=== PATIENT | male | born 1960 | race Caucasian/White ===

== ENCOUNTER 2016-09-12 13:23 | Inpatient (IN) | payer MEDICAID, OTHER ==
--- NOTE | 2016-09-12 13:56 | EDPHY ---
H & P Stated Complaint: lethargic, AMS this am Time Seen by Provider: 09/12/16 13:32 HPI/ROS: CHIEF COMPLAINT: Low-grade fever, lethargy HISTORY OF PRESENT ILLNESS: The patient is referred to the emergency department from the senior living. He has been incarcerated for some time. The patient reportedly developed a low-grade fever and some mild confusion earlier today. Patient the history of COPD as well as alcohol dependence. The patient is on Trilafon and Cogentin. In the emergency department, the patient denies acute complaints. The patient has reportedly been having problems with his cell mate. He denies acute abdominal pain, cough, vomiting or diarrhea. The patient denies any medication changes. He denies headache or acute back pain. He is only complaining of the fact that he is having wrist discomfort secondary to his current handcuffs. REVIEW OF SYSTEMS: A comprehensive 10 point review of systems is otherwise negative aside from elements mentioned in the history of present illness. 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, L ankle MRSA 2009, frostbite on right toes, COPD - Social History Smoking Status: Heavy smoker - Physical Exam Exam: General Appearance: Alert, no distress Eyes: Pupils equal and round no pallor or injection ENT, Mouth: Mucous membranes moist Respiratory: There are no retractions, lungs are clear to auscultation Cardiovascular: Regular rate and rhythm Gastrointestinal: Abdomen is soft and nontender, no masses, bowel sounds normal Neurological: A&O, normal motor function, normal sensory exam, normal cranial nerves Skin: Warm and dry, no rashes Musculoskeletal: Neck is supple nontender Extremities: symmetrical, full range of motion Constitutional: Initial Vital Signs Temperature (C) 37.2 C 09/12/16 13:33 Heart Rate 89 09/12/16 13:33 Respiratory Rate 20 09/12/16 13:33 Blood Pressure 143/106 H 09/12/16 13:33 O2 Sat (%) 97 09/12/16 13:33 O2 Delivery Mode Room Air Allergies/Adverse Reactions: codeine [Codeine] Allergy (Verified 12/15/15 08:00) Penicillins Allergy (Verified 03/14/15 08:00) Home Medications: Medication Instructions Recorded Albuterol 03/25/15 Omeprazole 03/25/15 Azithromycin [Zithromax] 250 mg PO DAILY #6 tab 04/24/15 Permethrin 60 gm TP ONCE #1 cream..g. 04/24/15 Medical Decision Making - Diagnostics Imaging Results: Imaging Impressions Chest X-Ray 09/12/16 13:52 Impression: Negative portable chest. Incomplete inspiration. ED Course/Re-evaluation: The patient presents to the ED for evaluation of confusion and lethargy. The patient is noted to have a critically low sodium of 114. In talking with the patient it sounds as if this may be secondary to water intoxication. The patient has been fairly stable on his chronic medications. The patient will require admission to the hospital. He had an IV established. He received 1 L of normal saline. The patient's urine has been sent for osmolality and sodium measures. Consultation is made with the hospitalist service for admission. I spoke with Dr. Oates at 2:30 p.m.. She will admit the patient. I re-evaluated the patient at 2:45 p.m.. He continues to be neurologically intact. I do not see an indication for hypertonic saline. The patient will be admitted to the step-down unit. I will defer to the hospitalist service for consulting renal if necessary. The patient has no significant fever noted in the emergency department. He reportedly was mildly hypoxemic but has no evidence of a acute infiltrate on his chest x-ray. Differential Diagnosis: Differential diagnosis considered includes metabolic abnormality, hyponatremia, dehydration, renal failure Critical Care Time: Critical care time exclusive of procedures and exclusive of the PA's time was 35 minutes, performed by myself, Hansel Murphy MD. The patient presents to the ED with critical hyponatremia. The patient will require admission to the Intensive Care Step-Down Unit. - Data Points Laboratory Results: Laboratory Results 09/12/16 13:40 09/12/16 09/12/16 09/12/16 14:25 13:40 13:40 WBC Pending RBC Pending Hgb Pending Hct Pending MCV Pending MCH Pending MCHC Pending RDW Pending Plt Count Pending MPV Pending Neut % (Auto) Pending Lymph % (Auto) Pending [place] % (Auto) Pending Eos % (Auto) Pending Baso % (Auto) Pending Nucleat RBC Rel Count Pending Absolute Neuts (auto) Pending Absolute Lymphs (auto) Pending Absolute Monos (auto) Pending Absolute Eos (auto) Pending Absolute Basos (auto) Pending Absolute Nucleated RBC Pending Immature Gran % Pending Immature Gran # Pending Sodium 114 mEq/L L* mEq/L (134-144) Potassium 4.1 mEq/L mEq/L (3.5-5.2) Chloride 78 mEq/L L mEq/L (97-110) Carbon Dioxide 23 mEq/l mEq/l (22-31) Anion Gap 13 mEq/L mEq/L (8-16) BUN 9 mg/dL mg/dL (7-23) Creatinine 0.7 mg/dL mg/dL (0.7-1.3) Estimated GFR > 60 Glucose 106 mg/dL H mg/dL (70-100) Calcium 9.4 mg/dL mg/dL (8.5-10.4) Urine Color Pending Urine Appearance Pending Urine pH Pending Ur Specific [place] Pending Urine Protein Pending Urine Ketones Pending Urine Blood Pending Urine Nitrate Pending Urine Bilirubin Pending Urine Urobilinogen Pending Ur Leukocyte Esterase Pending Urine RBC Pending Urine WBC Pending Ur Epithelial Cells Pending Urine Osmolality Pending Ur Random Sodium Pending Urine Glucose Pending Departure - Departure Disposition: [facility] Inpatient Acute Clinical Impression: Altered mental status, Hyponatremia Condition: Fair Referrals: NONE *PRIMARY CARE P,. [Primary Care Provider] - As per Instructions
[2016-09-12 14:20] LABS: ANION GAP 13 mEq/L (8-16); CALCIUM 9.4 mg/dL (8.5-10.4); CARBON DIOXIDE 23 mEq/l (22-31); CHLORIDE 78 mEq/L (97-110); CREATININE 0.7 mg/dL (0.7-1.3); GLOMERULAR FILTRATION RATE > 60; GLUCOSE 106 mg/dL (70-100); POTASSIUM 4.1 mEq/L (3.5-5.2)
[2016-09-12 14:24] LABS: SODIUM 114 mEq/L (134-144)
[2016-09-12] MEDS ORDERED: NS 1,000 ML IV ONE (14:25)
[2016-09-12 14:47] LABS: COLOR PALE YELLOW; LEUKOCYTE ESTERASE,URINE NEGATIVE (NEGATIVE); NITRITE,URINE NEGATIVE (NEGATIVE)
[2016-09-12] MEDS ORDERED: ONDANSETRON 4 MG/2 ML VIAL IVP PRN (15:11)
[2016-09-12] MEDS ORDERED: ONDANSETRON DISINTEGRATING 4 MG TAB PO PRN (15:11)
[2016-09-12] MEDS ORDERED: ALBUTEROL 200 PUFFS/18 GM MDI IH PRN (15:23)
--- NOTE | 2016-09-12 15:39 | PDGENHP ---
History and Physical - Chief Complaint confusion, N/V - History of Present Illness 56 yo male with h/o homelessness, alcohol abuse and presumed schizophrenia presents to the ED from [facility] with reports of increasing confusion and nausea and vomiting. Symptoms have been worsening over the past several days. He takes Trilafon (anti-psychotic) and Cogentin and is followed by Dr. Bernal. He denies seizure activity, though clearly has bite gonzalez on his tongue. He is unable to give an adequate history due to his confusion and only intermittently follows commands and answers questions. Most of the history is obtained by chart reviewed, ED staff, and his accompanying polic officer. Workup in the ED revealed a sodium of 114 and he is admitted to the hospital for further management. History Information - Allergies/Home Medication List Allergies/Adverse Reactions: codeine [Codeine] Allergy (Verified 03/14/15 08:00) Penicillins Allergy (Verified 03/14/15 08:00) Home Medications: Albuterol [Proventil Inhaler HFA (*)] 1 puffs IH QID PRN 09/12/16 [Last Taken Unknown] Beclomethasone Qvar 80 [Qvar 80 (*)] 1 puffs IH BID 09/12/16 [Last Taken Unknown ] Benztropine Mesylate [Cogentin (RX)] 1 mg PO BID 09/12/16 [Last Taken Unknown] Ibuprofen [Motrin (*)] 800 mg PO BID PRN 09/12/16 [Last Taken Unknown] Lisinopril/Hctz 20/12.5MG [Zestoretic/Prinzide 20/12.5MG (*)] 1 ea PO DAILY [Last Taken Unknown] Omeprazole [Prilosec 20 mg] 20 mg PO DAILY 09/12/16 [Last Taken Unknown] Perphenazine [Trilafon 16mg (*)] 16 mg PO HS 09/12/16 [Last Taken 09/11/16] Psyllium Husk (with Sugar) [Metamucil Packet] 1 each PO DAILY 09/12/16 [Last Taken Unknown] Tamsulosin HCl [Flomax 0.4 MG (*)] 0.4 mg PO DAILY 09/12/16 [Last Taken Unknown] I have personally reviewed and updated: family history, medical history, social history, surgical history - Past Medical History asthma, GERD Additional medical history: H/O alcohol abuse, H/O MRSA, H/O Gangrene due to frostbite injury - Surgical History Reports: no pertinent surgical hx - Family History Positive for: non-pertinent - Social History Smoking Status: Heavy smoker Alcohol Use: Other (h/o heavy etoh use, none recently while incarcerated) Drug Use: Marijuana Additional social history: Homeless, currently in [facility] for past several months Review of Systems ROS: 10pt was reviewed & negative except for what was stated in HPI & below Physical Exam Temp Pulse Resp BP Pulse Ox 37 C 83 20 144/89 H 97 09/12/16 14:35 09/12/16 14:35 09/12/16 14:35 09/12/16 14:35 09/12/16 14:35 Constitutional: no apparent distress Eyes: PERRL Ears, Nose, Mouth, Throat: moist mucous membranes, other (teeth gonzalez on left lateral aspect of tongue) Cardiovascular: regular rate and rhythym Respiratory: no respiratory distress, clear to auscultation Gastrointestinal: normoactive bowel sounds, soft, non-tender abdomen Skin: warm Musculoskeletal: full muscle strength Neurologic: other (oriented to person only, doesn't seem to be responding to internal stimuli, but not conversive) Psychiatric: encephalopathic, poor insight Lab Data & Imaging Review 09/12/16 13:40 09/12/16 13:40 Sodium 114 mEq/L (134-144) L* 09/12/16 13:40 Potassium 4.1 mEq/L (3.5-5.2) 09/12/16 13:40 Chloride 78 mEq/L (97-110) L 09/12/16 13:40 Carbon Dioxide 23 mEq/l (22-31) 09/12/16 13:40 Anion Gap 13 mEq/L (8-16) 09/12/16 13:40 BUN 9 mg/dL (7-23) 09/12/16 13:40 Creatinine 0.7 mg/dL (0.7-1.3) 09/12/16 13:40 Estimated GFR > 60 09/12/16 13:40 Glucose 106 mg/dL (70-100) H 09/12/16 13:40 Serum Osmolality 241 mosmo/kg (280-297) L 09/12/16 13:40 Calcium 9.4 mg/dL (8.5-10.4) 09/12/16 13:40 Urine Color PALE YELLOW 09/12/16 14:25 Urine Appearance CLEAR 09/12/16 14:25 Urine pH 8.0 (5.0-7.5) H 09/12/16 14:25 Ur Specific [place] 1.002 (1.002-1.030) 09/12/16 14:25 Urine Protein NEGATIVE (NEGATIVE) 09/12/16 14:25 Urine Ketones NEGATIVE (NEGATIVE) 09/12/16 14:25 Urine Blood 1+ (NEGATIVE) H 09/12/16 14:25 Urine Nitrate NEGATIVE (NEGATIVE) 09/12/16 14:25 Urine Bilirubin NEGATIVE (NEGATIVE) 09/12/16 14:25 Urine Urobilinogen NEGATIVE EU (0.2-1.0) 09/12/16 14:25 Ur Leukocyte Esterase NEGATIVE (NEGATIVE) 09/12/16 14:25 Urine RBC 1-3 /hpf (0-3) 09/12/16 14:25 Urine WBC 1-3 /hpf (0-3) 09/12/16 14:25 Ur Epithelial Cells NONE SEEN /lpf (NONE-1+) 09/12/16 14:25 Urine Osmolality 121 mosmo/kg (300-900) L 09/12/16 14:25 Ur Random Sodium 26 mEq/L (30-90) L 09/12/16 14:25 Urine Glucose NEGATIVE (NEGATIVE) 09/12/16 14:25 Visualized and Interpreted Chest x-ray results: Yes Chest X-Ray results: no infiltrate, normal Assessment & Plan Assessment: Hyponatremia - He presents with Na 114 and low urine Na and urine osm. I suspect he had a seizure given his tongue injury. He is quite confused. 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 However, Trilafon (anti-psychotic) can cause SIADH and polyuria. Urine studies not c/w SIADH. -Admit to SDU -Cancel NS ordered by ED -fluid restrict 1.2 L per day -Hold HCTZ -Renal is consulted, pt may require DDAVP to avoid rapid correction -q2h BMP for now -seizure precautions, neuro-checks Acute encephalopathy - likely secondary to above. Monitor. Schizophrenia - he'll be continued on his anti-psychotic and cogentin. If renal service thinks we need to stop Trilafon, will need psychiatry consult to consider alternatives to ensure he doesn't decompensate from a mental health standpoint. GERD -cont PPI Asthma - no acute exacerbation. Continue prn albuterol. Full code DVT PPLX - Lovenox Dispo - inpt. Will require >48 hrs hospitalization for ongoing management of critical hyponatremia and associated cognition changes
[2016-09-12 16:17] LABS: % IMMATURE GRANULYOCYTES 0.7 % (0.0-1.1); ABSOLUTE IMMATURE GRANULOCYTES 0.08 10^3/uL (0.00-0.10); ADD DIFF? NO; ADD MORPH? YES; ADD SCAN? NO; ATYPICAL LYMPHOCYTE FLAG 0 (0-99); FRAGMENT RBC FLAG 0 (0-99); HEMATOCRIT 34.4 % (40.0-51.0); HEMOGLOBIN 13.5 g/dL (13.7-17.5); LEFT SHIFT FLG 0 (0-99); MEAN CELL HEMOGLOBIN 32.8 pg (27.9-34.1); MEAN CELL HEMOGLOBIN CONCENTR. 39.2 g/dL (32.4-36.7); MEAN CELL VOLUME 83.7 fL (81.5-99.8); MEAN PLATELET VOLUME 9.6 fL (8.7-11.7); PLATELET CLUMPS FLAG 0 (0-99); PLATELET COUNT 175 10^3/uL (150-400); RED BLOOD CELL COUNT 4.11 10^6/uL (4.40-6.38); RED CELL DISTRIBUTION WIDTH 11.8 % (11.5-15.2)
[2016-09-12 16:18] LABS: LIPEMIA HEMOLYSIS FLAG 100 (0-99)
--- NOTE | 2016-09-12 16:24 | ECHO ---
[id number] + + [address] : : [place] [address] : : [phone] + + Adult Echocardiographic Report + -----+ :Name: SUZANNE HAGER Cuauhtemoc Date: 09/12/2016 04:09 PM : : Hospital Admission Number: [id number] Mayra n: ER: :: 1960 Gender: Male : :Age: 56 yrs Race: WH : :Reason For Study: Eval LV Fx : :History: Question CHF : + -----+ MMode/2D Measurements \T\ Calculations IVSd: 0.92 cm LVIDd: 4.8 cm FS: 43.2 % Ao root diam: 2.9 cm LVPWd: 0.94 cm LVIDs: 2.7 cm EDV(Teich): 108.0 ml ACS: 1.9 cm ESV(Teich): 27.8 ml EF(Teich): 74.3 % Normal Measurement Values: + + :LVIDd (3.5-5.7cm) IVSd (0.6-1.1cm) LVPWd (0.6-1.1cm) Aortic Root (2.0-3.7cm)Left Atrium (1.5-4.0cm): :LV Vol(d) (76-115ml) LV Vol(s) (29-48ml) Ejec Fraction (50-65%)PV Ethan (0.6- 1.2m/s) TV Ethan (0.4-1.0m/s) : :MV E Ethan (0.8-1.0m/s)MV A Ethan (0.3-1.0m/s)LVOT Ethan (0.7-1.2m/s) Asc Ao Ethan ( 0.9-1.8m/s) : + + Left Ventricle The left ventricle is normal in size and function. There is normal left ventricular wall thickness. The left ventricular ejection fraction is normal. Right Ventricle The right ventricle is normal in size and function. Atria The left atrial size is normal. Right atrial size is normal. Mitral Valve The mitral valve is normal in structure and function. There is no mitral valve stenosis. There is trace mitral regurgitation. Tricuspid Valve The tricuspid valve is not well visualized. Aortic Valve The aortic valve opens well. There is no aortic stenosis. Pulmonic Valve The pulmonic valve is not well visualized. Pericardium/Pleural There is no pericardial effusion. Patient was restrained and uncooperative during the exam. Conclusion This is a limited echo to evaluate LV Fx. The left ventricle is normal in size and function. The left ventricular ejection fraction is normal. The mitral valve is normal in structure and function. There is trace mitral regurgitation. The aortic valve opens well. There is no pericardial effusion. Patient was restrained and uncooperative during the exam. No prior echo Final Reading Physician: Dr Ariana Lozano electronically signed on 09/12/2016 04:22 PM Ordering Physician: Hansel Estrella Performed By: Tremaine Scott, MICHELLECS
[2016-09-12 17:25] LABS: ACANTHOCYTES 1+; MICROCYTES 1+; PLATELET ESTIMATE ADEQUATE (ADEQ); POLYCHROMASIA 1+
[2016-09-12] MEDS ORDERED: SODIUM Cl 3% 100 ML IV ONE (17:30)
--- NOTE | 2016-09-12 18:34 | GCON ---
[f rep st] CONSULTATION DATE OF CONSULTATION: 09/12/2016 REASON FOR CONSULTATION: Opinion regarding hyponatremia. HISTORY OF PRESENT ILLNESS: The patient is a 56-year-old gentleman with no prior history of kidney disease, he is currently incarcerated in the [facility] senior care. The patient was somnolent today and his c ellmate was unable to arouse him. He was brought to the [facility] Emergency Department and was noted to have a serum sodium of 114. The patient has a history of a psychiatric illness and is on multiple psychiatric medications including Trilafon as well as Cogentin. When I went to see the patient, I could arouse him, but he went back to sleep, he would not answer my questions. A member of the human factors advisor lead's department was present during the entire interview. PAST MEDICAL HISTORY: Significant for schizophrenia and BPH. ALLERGIES: To codeine and penicillin. FAMILY HISTORY: Unobtainable. SOCIAL HISTORY: He is currently living in the [facility] senior care. REVIEW OF SYSTEMS: Not obtainable from the patient. PHYSICAL EXAMINATION: VITAL SIGNS: Blood pressure is 144/89, pulse is 83, respirations 20, tempera ture is 37.0. GENERAL: He is lying on a cart, and he is arousable but drifts off to sleep. HEENT: Pupils are reactive to light. Extraocular movements are intact. Mucous membranes are moist. NEC K: No lymphadenopathy, thyromegaly, or JVD. HEART: Regular. No rub. No S3. LUNGS: No rhonchi or wheezes. ABDOMEN: Bowel sounds are positive, soft, nontender, nondistended. EXTREMITIES: No e alexandre. NEUROLOGIC: No asterixis. He moves all of his extremities. SKIN: Warm. No unusual rashes or lesions. LYMPHATIC: No palpable lymphadenopathy or lymphedema. MUSCULOSKELETAL: No effusions or tenderness. LABORATORY DATA: Serum sodium 114, potassium 4.1, chloride 78, CO2 of 23, BUN 9, creatinine 0.7, gl ucose 106, calcium 9.4. Serum osmolality 241. Urine osmolality 121. Urine sodium 26. Osmolar gap is 5. Urinalysis: Specific gravity of 1.002, pH 8, negative protein, +1 blood. IMPRESSION: 1. Polydipsic hyponatremia. Apparently according to his cellmate, the patient "drinks water all da y long." His urine chemistries would bare that out as well, I would expect his urine osmolality to be a bit less, but with his psychiatric illness and medications, we may see some impairment of his d iluting ability. 2. Mental status changes and somnolence, no seizures but he is difficult to arouse. 3. History of schizophrenia. RECOMMENDATIONS: 1. We will give him 100 cc of 3% sodium chloride over 10 to 15 minutes x1 and repeat a serum sodium after the infusion is completed. 2. We will continue to follow his sodium closely. 3. He will be admitted to the hospital. 4. I suspect that with his good renal function and the absence of water available to him, he should correct on his own. It is not clear of the acuity of his hyponatremia and so we should get his men braydon status better, and then attempt to keep his rate of his sodium to around 8 mEq/L per day. 5. Discuss this with Dr. Sylvia Oates. Thank you for allowing me to participate in the care of your patient. If there is any questions, pl ease do not hesitate to contact me. I will be following along with you. /[id number]/MODL
[2016-09-12 19:17] LABS: ANION GAP 11 mEq/L (8-16); CALCIUM 9.6 mg/dL (8.5-10.4); CARBON DIOXIDE 22 mEq/l (22-31); CHLORIDE 84 mEq/L (97-110); CREATININE 0.8 mg/dL (0.7-1.3); GLOMERULAR FILTRATION RATE > 60; GLUCOSE 95 mg/dL (70-100); URIC ACID 5.9 mg/dL (3.5-8.5)
[2016-09-12 19:21] LABS: SODIUM 117 mEq/L (134-144)
[2016-09-12] MEDS: ACETAMINOPHEN 325 MG TAB PO PRN (21:11)
[2016-09-12] MEDS: PERPHENAZINE 16 MG PO SCH (21:14)
[2016-09-12 22:08] LABS: ANION GAP 10 mEq/L (8-16); CALCIUM 9.6 mg/dL (8.5-10.4); CARBON DIOXIDE 26 mEq/l (22-31); CHLORIDE 83 mEq/L (97-110); CREATININE 0.8 mg/dL (0.7-1.3); GLOMERULAR FILTRATION RATE > 60; GLUCOSE 90 mg/dL (70-100); POTASSIUM 3.7 mEq/L (3.5-5.2)
[2016-09-12 22:23] LABS: SODIUM 119 mEq/L (134-144)
[2016-09-12] MEDS: BECLOMETHASONE QVAR 80 MDI IH SCH (22:54)
[2016-09-12] MEDS ORDERED: 1/2 NS 1,000 ML IV SCH (23:00)
[2016-09-13 00:08] LABS: ANION GAP 11 mEq/L (8-16); CALCIUM 9.4 mg/dL (8.5-10.4); CARBON DIOXIDE 24 mEq/l (22-31); CHLORIDE 83 mEq/L (97-110); CREATININE 0.8 mg/dL (0.7-1.3); GLOMERULAR FILTRATION RATE > 60; GLUCOSE 91 mg/dL (70-100); POTASSIUM 3.8 mEq/L (3.5-5.2)
[2016-09-13 00:11] LABS: SODIUM 118 mEq/L (134-144)
[2016-09-13 01:29] LABS: ANION GAP 10 mEq/L (8-16); CALCIUM 9.3 mg/dL (8.5-10.4); CARBON DIOXIDE 24 mEq/l (22-31); CHLORIDE 87 mEq/L (97-110); CREATININE 0.8 mg/dL (0.7-1.3); GLOMERULAR FILTRATION RATE > 60; GLUCOSE 94 mg/dL (70-100); POTASSIUM 3.5 mEq/L (3.5-5.2); SODIUM 121 mEq/L (134-144)
[2016-09-13] MEDS ORDERED: D5W 1,000 ML IV SCH (02:30)
[2016-09-13 04:54] LABS: ANION GAP 11 mEq/L (8-16); CALCIUM 9.5 mg/dL (8.5-10.4); CARBON DIOXIDE 25 mEq/l (22-31); CHLORIDE 85 mEq/L (97-110); CREATININE 0.8 mg/dL (0.7-1.3); GLOMERULAR FILTRATION RATE > 60; GLUCOSE 106 mg/dL (70-100); POTASSIUM 3.4 mEq/L (3.5-5.2); SODIUM 121 mEq/L (134-144)
[2016-09-13 06:58] LABS: % IMMATURE GRANULYOCYTES 0.5 % (0.0-1.1); ABSOLUTE IMMATURE GRANULOCYTES 0.03 10^3/uL (0.00-0.10); ADD DIFF? NO; ADD MORPH? YES; ADD SCAN? NO; ATYPICAL LYMPHOCYTE FLAG 0 (0-99); FRAGMENT RBC FLAG 0 (0-99); HEMATOCRIT 32.4 % (40.0-51.0); HEMOGLOBIN 12.6 g/dL (13.7-17.5); LEFT SHIFT FLG 0 (0-99); MEAN CELL HEMOGLOBIN 32.6 pg (27.9-34.1); MEAN CELL VOLUME 83.9 fL (81.5-99.8); MEAN PLATELET VOLUME 9.2 fL (8.7-11.7); PLATELET CLUMPS FLAG 20 (0-99); PLATELET COUNT 135 10^3/uL (150-400); RED BLOOD CELL COUNT 3.86 10^6/uL (4.40-6.38); RED CELL DISTRIBUTION WIDTH 11.9 % (11.5-15.2)
[2016-09-13 06:59] LABS: LIPEMIA HEMOLYSIS FLAG 100 (0-99); MEAN CELL HEMOGLOBIN CONCENTR. 38.9 g/dL (32.4-36.7)
[2016-09-13 07:36] LABS: MICROCYTES 1+; PLATELET ESTIMATE DECREASED (ADEQ)
[2016-09-13] MEDS: TAMSULOSIN HCL 0.4 MG CAP PO SCH (08:31)
[2016-09-13] MEDS: PANTOPRAZOLE SODIUM 40 MG TAB PO SCH (08:31)
[2016-09-13] MEDS: ENOXAPARIN 40 MG/0.4 ML SYR SC SCH (08:40)
[2016-09-13 08:55] LABS: ANION GAP 9 mEq/L (8-16); CALCIUM 9.3 mg/dL (8.5-10.4); CARBON DIOXIDE 26 mEq/l (22-31); CHLORIDE 87 mEq/L (97-110); CREATININE 0.8 mg/dL (0.7-1.3); GLOMERULAR FILTRATION RATE > 60; GLUCOSE 106 mg/dL (70-100); POTASSIUM 3.5 mEq/L (3.5-5.2); SODIUM 122 mEq/L (134-144)
--- NOTE | 2016-09-13 09:13 | SOAPPROG ---
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 May need to give some DDAVP if continues to rise. RN to page me next Na check to adjust fluids, etc. -continue q Na checks- goal correction no more than 8 points in 24 hrs 2)Schizophrenia I am quality control expert for weekend Maria G Tabor MD [facility] [phone] 09/13/16 10:35 Subjective: Feels better today, ate breakfast. Denies sob, n/v, diarrhea. Remains on D5W @ 125 cc/hr/ Objective: Vital Signs Temp Pulse Resp BP Pulse Ox 37.0 C 66 12 95/49 L 97 09/13/16 08:00 09/13/16 08:00 09/13/16 08:00 09/13/16 08:00 09/13/16 08:00 Laboratory Results 09/13/16 06:14 09/13/16 08:30 09/12/16 09/13/16 09/14/16 05:59 05:59 05:59 Intake Total 450 Output Total 450 Balance 0 Physical Exam - Physical Exam General Appearance: alert, no apparent distress EENT: other (mmm) Neck: supple Respiratory: lungs clear Cardiac/Chest: regular rate, rhythm Abdomen: normal bowel sounds, non-tender, soft Skin: warm/dry Extremities: other (no edema) Neuro/Psych: alert, oriented x 3, other (flat affect) ICD10 Worksheet Patient Problems: Problems Problem Status Onset Altered mental status Acute Hyponatremia Acute Alcohol intoxication Acute History of acute alcohol intoxication Acute Osteomyelitis of foot, right, acute Acute
[2016-09-13] MEDS: ACETAMINOPHEN 325 MG TAB PO PRN ×2 (09:17→16:50)
[2016-09-13] MEDS: BECLOMETHASONE QVAR 80 MDI IH SCH ×2 (09:31→19:33)
--- NOTE | 2016-09-13 09:31 | HOSPPROG ---
Hospitalist Progress Note Assessment/Plan: #Hyponatremia: due to polydypsia. Hold HCTZ q4hr Na. Do not want >8meq rise in 24 hrs. Goal now higher than 122. -Noon BMP 122. Cont D5W, may need DDVAP. Appreciate renal consultation #Schizophrenia: cont psych meds. #Likely seizure: bite clif on tongue #Acute metabolic encephalopathy: due to hyponatremia vs. seizure. Now resolved. #GERD: PPI #HTN: hold ACEI with soft pressures #Diet: regular with 1200ml fluid restriction #Disp: cont ICU care with serial BMPs, IVFs Subjective: no SOB, dizziness Objective: Vital Signs Temp Pulse Resp BP Pulse Ox 37.0 C 66 12 95/49 L 97 09/13/16 08:00 09/13/16 08:00 09/13/16 08:00 09/13/16 08:00 09/13/16 08:00 Laboratory Results 09/13/16 06:14 09/13/16 08:30 09/12/16 09/13/16 09/14/16 05:59 05:59 05:59 Intake Total 450 Output Total 450 Balance 0 - Physical Exam Constitutional: no apparent distress Eyes: PERRL Ears, Nose, Mouth, Throat: moist mucous membranes, hearing normal Cardiovascular: regular rate and rhythym, no murmur, rub, or gallop Respiratory: no respiratory distress, no rales or rhonchi Gastrointestinal: normoactive bowel sounds, soft, non-tender abdomen Genitourinary: no bladder fullness Skin: warm Musculoskeletal: full muscle strength Neurologic: AAOx3, CN II-XII Intact Psychiatric: interacting appropriately ICD10 Worksheet Patient Problems: Problems Problem Status Onset History of acute alcohol intoxication Acute Osteomyelitis of foot, right, acute Acute Alcohol intoxication Acute Altered mental status Acute Hyponatremia Acute
[2016-09-13 12:26] LABS: ANION GAP 13 mEq/L (8-16); CALCIUM 9.3 mg/dL (8.5-10.4); CARBON DIOXIDE 25 mEq/l (22-31); CHLORIDE 84 mEq/L (97-110); CREATININE 0.9 mg/dL (0.7-1.3); GLOMERULAR FILTRATION RATE > 60; GLUCOSE 106 mg/dL (70-100); POTASSIUM 3.7 mEq/L (3.5-5.2); SODIUM 122 mEq/L (134-144)
--- NOTE | 2016-09-13 13:41 | GCON ---
[f rep st] CONSULTATION CRITICAL CARE CONSULTATION DATE OF CONSULTATION: 09/13/2016 HISTORY OF PRESENT ILLNESS: The patient is a 56-year-old male with a history of alcohol abuse and s chizophrenia who was brought to the emergency department from residential with increased confusion and emes is. He takes antipsychotics for schizophrenia and was becoming more confused and unresponsive in e residential and was found to have a sodium of 114. He was unable to provide much history, and there was some discussion of seizure activity but this was not confirmed. PAST MEDICAL HISTORY: Includes asthma, reflux disease, schizophrenia, alcohol abuse, MRSA bacteremi a in the past, gangrene due to a frostbite injury. PAST SURGICAL HISTORY: None. FAMILY HISTORY: Noncontributory. SOCIAL HISTORY: He is a heavy smoker and a history of alcohol use but none recently because he is i n residential. Does use marijuana regularly. MEDICATIONS: Include albuterol, QVAR, Cogentin, Motrin, Zestoretic, Prilosec, Trilafon. PHYSICAL EXAMINATION: VITAL SIGNS: Afebrile, heart rate of 66, respirations 12, blood pressure 95/ 49, oxygen saturation 97% on room air. GENERAL: He was awake and alert, in no apparent distress, a nd able to speak in full sentences. HEENT: Mucous membranes are moist without erythema or exudate. NECK: Supple without adenopathy. LUNGS: Breath sounds were clear to auscultation bilaterally wi thout wheezes, rubs, or rales. HEART: Regular rate and rhythm. ABDOMEN: Soft, nontender, nondist ended. EXTREMITIES: No clubbing, cyanosis, or edema. NEUROLOGIC: Grossly nonfocal. LABORATORY DATA: Includes a white count of 6.4, hematocrit of 32, platelets of 135. Sodium was ini tially 114 and has risen to 122, potassium 3.7, chloride 84, bicarb 25, BUN 9, creatinine 0.9. ASSESSMENT/PLAN: 1. Hyponatremia. This is thought to be due to polydipsia. He seems to be auto correcting. His ra te is somewhat quicker, but Renal is managing this primarily and I expect no major sequela from this problem. 2. Asthma. This is stable at this time. He should continue his previous medications. /[id number]/MODL
[2016-09-13] MEDS: IBUPROFEN 600 MG TAB PO PRN ×2 (15:06→20:09)
[2016-09-13 16:28] LABS: ANION GAP 10 mEq/L (8-16); CALCIUM 9.2 mg/dL (8.5-10.4); CARBON DIOXIDE 25 mEq/l (22-31); CHLORIDE 84 mEq/L (97-110); CREATININE 0.9 mg/dL (0.7-1.3); GLOMERULAR FILTRATION RATE > 60; GLUCOSE 111 mg/dL (70-100); POTASSIUM 3.7 mEq/L (3.5-5.2)
[2016-09-13 16:38] LABS: SODIUM 119 mEq/L (134-144)
[2016-09-13] MEDS: PERPHENAZINE 16 MG PO SCH (20:09)
[2016-09-13 20:22] LABS: ANION GAP 11 mEq/L (8-16); CARBON DIOXIDE 23 mEq/l (22-31); CHLORIDE 84 mEq/L (97-110); CREATININE 0.8 mg/dL (0.7-1.3); GLOMERULAR FILTRATION RATE > 60; GLUCOSE 106 mg/dL (70-100); SPECIMEN HEMOLYSIS 164
[2016-09-13 20:28] LABS: SODIUM 118 mEq/L (134-144)
[2016-09-13 22:55] LABS: ANION GAP 13 mEq/L (8-16); CALCIUM 9.2 mg/dL (8.5-10.4); CARBON DIOXIDE 23 mEq/l (22-31); CHLORIDE 84 mEq/L (97-110); CREATININE 0.8 mg/dL (0.7-1.3); GLOMERULAR FILTRATION RATE > 60; GLUCOSE 116 mg/dL (70-100); POTASSIUM 3.5 mEq/L (3.5-5.2); SODIUM 120 mEq/L (134-144)
[2016-09-14 03:27] LABS: ANION GAP 11 mEq/L (8-16); CARBON DIOXIDE 24 mEq/l (22-31); CHLORIDE 89 mEq/L (97-110); CREATININE 0.8 mg/dL (0.7-1.3); GLOMERULAR FILTRATION RATE > 60; GLUCOSE 92 mg/dL (70-100); POTASSIUM 3.3 mEq/L (3.5-5.2); SODIUM 124 mEq/L (134-144)
[2016-09-14 06:06] LABS: HEMATOCRIT 33.9 % (40.0-51.0); HEMOGLOBIN 12.7 g/dL (13.7-17.5); MEAN CELL HEMOGLOBIN 32.6 pg (27.9-34.1); MEAN CELL HEMOGLOBIN CONCENTR. 37.5 g/dL (32.4-36.7); MEAN CELL VOLUME 87.1 fL (81.5-99.8); RED BLOOD CELL COUNT 3.89 10^6/uL (4.40-6.38); RED CELL DISTRIBUTION WIDTH 11.9 % (11.5-15.2)
[2016-09-14 06:56] LABS: ANION GAP 11 mEq/L (8-16); CALCIUM 9.4 mg/dL (8.5-10.4); CARBON DIOXIDE 27 mEq/l (22-31); CHLORIDE 88 mEq/L (97-110); CREATININE 0.9 mg/dL (0.7-1.3); GLOMERULAR FILTRATION RATE > 60; GLUCOSE 94 mg/dL (70-100); POTASSIUM 3.6 mEq/L (3.5-5.2); SODIUM 126 mEq/L (134-144)
[2016-09-14] MEDS: BECLOMETHASONE QVAR 80 MDI IH SCH ×2 (08:17→19:56)
[2016-09-14] MEDS: PANTOPRAZOLE SODIUM 40 MG TAB PO SCH (09:04)
[2016-09-14] MEDS: ENOXAPARIN 40 MG/0.4 ML SYR SC SCH (09:04)
[2016-09-14] MEDS: IBUPROFEN 600 MG TAB PO PRN ×2 (09:04→21:42)
[2016-09-14] MEDS: TAMSULOSIN HCL 0.4 MG CAP PO SCH (09:05)
--- NOTE | 2016-09-14 13:13 | SOAPPROG ---
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 Will need instructions to [facility] for him not to drink excessive water in future as at risk for recurrence. 2)Schizophrenia I discussed with hospitalist I am as400 consultant for weekend Maria G Tabor MD [facility] [phone] 09/14/16 13:45 Subjective: Feels well- denies any n/v, dizziness, sob. Ate all of lunch. Reports chronic tooth pain, requesting ibuprofen. Objective: Vital Signs Temp Pulse Resp BP Pulse Ox 37.1 C 65 13 102/61 92 09/14/16 08:00 09/14/16 08:00 09/14/16 08:00 09/14/16 08:00 09/14/16 08:00 Laboratory Results 09/14/16 05:45 09/14/16 05:45 09/13/16 09/14/16 09/15/16 05:59 05:59 05:59 Intake Total 450 200 Output Total 450 500 Balance 0 -300 Physical Exam - Physical Exam General Appearance: no apparent distress EENT: other (mmm) Respiratory: lungs clear Cardiac/Chest: regular rate, rhythm Abdomen: normal bowel sounds, non-tender, soft Skin: warm/dry Extremities: other (no edema) Neuro/Psych: alert, oriented x 3, other (much more interactive, talkaltive today ) ICD10 Worksheet Patient Problems: Problems Problem Status Onset Altered mental status Acute Hyponatremia Acute Alcohol intoxication Acute History of acute alcohol intoxication Acute Osteomyelitis of foot, right, acute Acute
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
[2016-09-14] MEDS: PERPHENAZINE 16 MG PO SCH (21:42)
[2016-09-15 08:13] VITALS: BP 111/68; TEMP 98.7; O2SAT 95
[2016-09-15] MEDS: ENOXAPARIN 40 MG/0.4 ML SYR SC SCH (08:16)
[2016-09-15] MEDS: TAMSULOSIN HCL 0.4 MG CAP PO SCH (08:16)
[2016-09-15] MEDS: PANTOPRAZOLE SODIUM 40 MG TAB PO SCH (08:16)
[2016-09-15] MEDS: BECLOMETHASONE QVAR 80 MDI IH SCH (09:10)
[2016-09-15 09:14] VITALS: PULSE 86; RESP 14
--- NOTE | 2016-09-15 11:36 | GDS ---
[f rep st] DISCHARGE SUMMARY DISCHARGE DIAGNOSES: 1. Polydipsia. 2. Hyponatremia. 3. Schizophrenia. 4. Tooth pain. 5. Acute metabolic encephalopathy. 6. Suspected seizure. HISTORY OF PRESENT ILLNESS: The patient is a 56-year-old male with a history of schizophrenia, who was brought in from skilled nursing with increased confusion, nausea and vomiting. These symptoms progressed over the last several days. He is followed by Dr. Mims. He denies seizure activity, although he has bite gonzalez on his tongue. He was unable to give an adequate history during initial interview due to confusion. In the emergency room, he had a sodium of 114. He was admitted to the ICU for further treatment. HOSPITAL COURSE BY PROBLEM: 1. 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 His sodium initially was 114 , but corrected too quickly to 126. This was corrected with D5. He was placed on fluid restriction and sodium has now normalized on its own and is currently 132. Recommend a 1.5-2 L restriction back at skilled nursing. 2. Schizophrenia. Continue home medications per his psychiatrist. 3. Tooth pain, no evidence of an acute infection. Would recommend referral for a dentist. 4. Acute metabolic encephalopathy secondary to hyponatremia. This has since resolved with improvement of his sodium. DISPOSITION: The patient is stable for discharge. FOLLOWUP: 1. Psychiatrist. 2. Referral to a dentist for tooth pain. /[id number]/MODL MTDD
== END 2016-09-15 10:16 | DRG 640 ==
LOC: F2N 18:36
PROVIDERS: ADMIT Hospitalist; ATTEND Hospitalist
DX: E87.1 Hypo-osmolality and hyponatremia (principal); G04.30 Acute necrotizing hemorrhagic encephalopathy, unspecified; R63.1 Polydipsia; F20.9 Schizophrenia, unspecified; R56.9 Unspecified convulsions; J44.9 Chronic obstructive pulmonary disease, unspecified; K08.89 Other specified disorders of teeth and supporting structures; F10.21 Alcohol dependence, in remission; F17.210 Nicotine dependence, cigarettes, uncomplicated; I10 Essential (primary) hypertension; K21.9 Gastro-esophageal reflux disease without esophagitis; Z87.820 Personal history of traumatic brain injury; Z86.14 Personal history of Methicillin resistant Staphylococcus aureus infection; Z88.0 Allergy status to penicillin
CPT/HCPCS: 97161-GP; J1650

== ENCOUNTER 2016-09-25 17:33 | Emergency (ER) | payer MEDICAID, OTHER ==
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
[2016-09-25 17:41] VITALS: BP 102/91; PULSE 88; RESP 16; TEMP 98.6; O2SAT 93
== END 2016-09-25 18:15 | disposition home or self-care (01) ==
PROC: 0CQ1XZZ Repair Lower Lip, External Approach (ICD-10-PCS; principal; 2016-09-25)
DX: S01.511A Laceration without foreign body of lip, initial encounter (principal); I10 Essential (primary) hypertension; F17.200 Nicotine dependence, unspecified, uncomplicated; Y04.0XXA Assault by unarmed brawl or fight, initial encounter; Y92.149 Unspecified place in prison as the place of occurrence of the external cause

== ENCOUNTER 2016-10-28 00:08 | Inpatient (IN) | payer MEDICAID, OTHER ==
--- NOTE | 2016-10-28 00:17 | EDPHY ---
H & P HPI/ROS: HPI CHIEF COMPLAINT: Stroke alert, from long-term HISTORY OF PRESENT ILLNESS: Patient 56-year-old male who presents emergency room for a stroke alert called by EMS in the field after the make contact with the patient in long-term. The long-term nurse called 911 as the patient was not acting normal. Seemed confused. Does have significant past medical history of hyponatremia he is long-term may does report that he was drinking a lot of water today. EMS make contact with the patient evaluated and seemed that he had some left-sided deficits left arm weakness left leg weakness and some right-sided gaze preference. They became concerned call stroke alert in the field. Last seen normal 2230. Or approximately an hour and half ago. Is also noted is hypertensive 180 systolic. Upon arrival in the emergency room I did meet and Greet the patient in front of ER room 2 on the EMS stretcher. The patient intermittently follows commands. He does move all his extremities however he tends to look to the right. However is able to turn and look to the left. He was able to move his left leg and left upper extremity. Does appear slightly weaker on the left side than the right side. Additionally he has very poor historian with very limited review of systems. This is due to his clinical state. He does appear confused. Additionally reported to me that this patient may have had a seizure in long-term. Past Medical History: Psychogenic polydipsia, hyponatremia, seizure, metabolic encephalopathy, schizophrenia Past Surgical History: No recent surgery Social History: History of alcohol use. Unknown drugs. ROS REVIEW OF SYSTEMS: Review of systems limited due the patient's mental state. Exam Constitutional appears confused, triage nursing summary reviewed, vital signs reviewed, awake/alert. Eyes normal conjunctivae and sclera, EOMI, PERRLA. HENT normal inspection, atraumatic, moist mucus membranes, no epistaxis, neck supple/ no meningismus, no raccoon eyes. Respiratory clear to auscultation bilaterally, normal breath sounds, no respiratory distress, no wheezing. Cardiovascular rate normal, regular rhythm, no murmur, no edema, distal pulses normal. Gastrointestinal soft, non-tender, no rebound, no guarding, normal bowel sounds, no distension, no pulsatile mass. Genitourinary no CVA tenderness. Musculoskeletal no midline vertebral tenderness, full range of motion, no calf swelling, no tenderness of extremities, no meningismus, good pulses, neurovascularly intact. Skin pink, warm, & dry, no rash, skin atraumatic. Neurologic the patient is right gaze preference prefers to look to the right. However he will cross midline and will to the left. As for his focal cranial nerve neuro exam he does move everything however he intermittently does not follow commands. He does appear confused. He does not answer my questions appropriately. Extraocular movements are intact. Stronger on the right than left. Right has 5/5 strength right upper and right lower strength. Left side appears more weak 3/5. I do not appreciate a facial droop. Psychiatric normal mood/affect. Heme/Lymph/Immune no lymphadenopathy. Differential Diagnosis: Includes but is not limited to in a particular order acute stroke, hyponatremia, metabolic encephalopathy, seizure with postictal state, intracranial bleed Medical Decision Making: Plan for this patient proceed with stroke evaluation with stroke workup. I will touch base with [facility]. Patient was immediately sent to CT scan for CT head without contrast. Will need to check his blood pressure again as it was acutely elevated upon arrival will also need to check his blood work. Re-evaluation: 1220AM: I spoke with Dr. Bradford with [facility]. Would like to evaluate him after he proceeds back from CT scan. 1225AM: I spoke with Dr. Luis A Gasca about this patient's CT scan. 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 No acute bleed. 1228AM: I did re-evaluate this patient this time I do see him move all extremities. He has crossed his legs. He has padding his chest with his left arm. I will have [facility] Dr. Bradford evaluate the patient. 1229AM: I think this patient is going to be unlikely to get tPA as his sodium is low 125 possibly causing this clinical scenario. I have seen him subsequently move all his extremities. He appears confused consistent with a encephalopathy as opposed to acute stroke. 1237AM: Spoke with Dr. Bradford and Sanchez evaluated this patient both do not feel this patient is a tPA candidate given his clinical scenario. He is now moving all his extremities. He still does not follow commands he appears confused. He appears to have acute encephalopathy most likely due to hyponatremia. Do not feel that he is actually having an acute stroke. And we do not feel that he would be a tPA candidate. Reason why he is not a tPA candidate is acute altered mental status with encephalopathy due to hyponatremia. As well as his symptoms of left-sided weakness are no longer present. 1239AM: EKG interpretation by me on record in [facility] system. Impression time of EKG 0038 this is sinus rhythm rate of 97, otherwise unremarkable EKG no signs of cardiac arrhythmia no prolonged intervals. No signs of acute ischemia. ED x-ray chest one view: Cardiomegaly present. Otherwise unremarkable chest x- ray. Image interpreted by myself 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, L ankle MRSA 2009, frostbite on right toes, COPD - Social History Smoking Status: Heavy smoker Allergies/Adverse Reactions: codeine [Codeine] Allergy (Verified 03/14/15 08:00) Penicillins Allergy (Verified 03/14/15 08:00) Home Medications: Medication Instructions Recorded Albuterol [Proventil Inhaler HFA 1 puffs IH QID PRN 09/12/16 (*)] Beclomethasone Qvar 80 [Qvar 80 1 puffs IH BID 09/12/16 (*)] Benztropine Mesylate [Cogentin] 1 mg PO BID 09/12/16 Ibuprofen [Motrin (*)] 800 mg PO BID PRN 09/12/16 Omeprazole [Prilosec 20 mg] 20 mg PO DAILY 09/12/16 Perphenazine [Trilafon 16mg (*)] 16 mg PO HS 09/12/16 Psyllium Husk (with Sugar) 1 each PO DAILY 09/12/16 [Metamucil Packet] Tamsulosin HCl [Flomax 0.4 MG (*)] 0.4 mg PO DAILY 09/12/16 Lisinopril 20 mg PO DAILY #30 tablet 09/15/16 Medical Decision Making - Data Points Laboratory Results: 10/28/16 10/28/16 10/28/16 00:10 00:10 00:10 WBC Pending RBC Pending Hgb Pending Hct Pending MCV Pending MCH Pending MCHC Pending RDW Pending Plt Count Pending MPV Pending Neut % (Auto) Pending Lymph % (Auto) Pending [place] % (Auto) Pending Eos % (Auto) Pending Baso % (Auto) Pending Nucleat RBC Rel Count Pending Absolute Neuts (auto) Pending Absolute Lymphs (auto) Pending Absolute Monos (auto) Pending Absolute Eos (auto) Pending Absolute Basos (auto) Pending Absolute Nucleated RBC Pending Immature Gran % Pending Immature Gran # Pending PT Pending INR Pending Sodium Pending Potassium Pending Chloride Pending Carbon Dioxide Pending Anion Gap Pending BUN Pending Creatinine Pending Estimated GFR Pending Glucose Pending Calcium Pending Troponin I Pending Ethyl Alcohol Pending Departure - Departure Disposition: [facility] Inpatient Acute Clinical Impression: Hyponatremia, Confusion, Encephalopathy Condition: Fair Referrals: Patient,NotPresent [Unknown] - As per Instructions
[2016-10-28 00:40] LABS: ANION GAP 27 mEq/L (8-16); CALCIUM 9.2 mg/dL (8.5-10.4); CHLORIDE 93 mEq/L (97-110); CREATININE 1.1 mg/dL (0.7-1.3); ETHANOL SERUM < 10 mg/dL (0-10); GLOMERULAR FILTRATION RATE > 60; GLUCOSE 109 mg/dL (70-100); POTASSIUM 4.2 mEq/L (3.5-5.2); SODIUM 128 mEq/L (134-144)
[2016-10-28] MEDS ORDERED: LORazepam 2 MG/ML INJ IVP ONE (00:40)
--- NOTE | 2016-10-28 00:40 | CPEKG ---
Heart Rate: 97 RR Interval: 619 P-R Interval: 176 QRSD Interval: 102 QT Interval: 356 QTC Interval: 452 P [place]: 57 QRS [place]: 84 T Wave [place]: 29 EKG Severity - NORMAL ECG - EKG Impression: SINUS RHYTHM Electronically Signed By: Mark Caputo 31-Oct-2016 09:10:33
[2016-10-28 00:45] LABS: ABSOLUTE IMMATURE GRANULOCYTES 0.13 10^3/uL (0.00-0.10); ADD DIFF? NO; ADD MORPH? NO; ADD SCAN? NO; ATYPICAL LYMPHOCYTE FLAG 0 (0-99); FRAGMENT RBC FLAG 0 (0-99); HEMATOCRIT 35.7 % (40.0-51.0); HEMOGLOBIN 12.2 g/dL (13.7-17.5); LEFT SHIFT FLG 10 (0-99); LIPEMIA HEMOLYSIS FLAG 90 (0-99); MEAN CELL HEMOGLOBIN 32.2 pg (27.9-34.1); MEAN CELL HEMOGLOBIN CONCENTR. 34.2 g/dL (32.4-36.7); MEAN CELL VOLUME 94.2 fL (81.5-99.8); MEAN PLATELET VOLUME 9.4 fL (8.7-11.7); PLATELET CLUMPS FLAG 0 (0-99); PLATELET COUNT 199 10^3/uL (150-400); RED BLOOD CELL COUNT 3.79 10^6/uL (4.40-6.38); RED CELL DISTRIBUTION WIDTH 11.9 % (11.5-15.2)
[2016-10-28 00:51] LABS: INR 1.11 (0.83-1.16); PROTIME(PATIENT) 14.2 SEC (12.0-15.0)
[2016-10-28 00:54] LABS: TROPONIN I < 0.012 ng/mL (0-0.034)
[2016-10-28 00:55] LABS: CARBON DIOXIDE 8 mEq/l (22-31)
[2016-10-28] MEDS ORDERED: HALOPERIDOL LACT 5 MG/ML INJ ONE (01:28)
[2016-10-28] MEDS ORDERED: HALOPERIDOL LACT 5 MG/ML INJ IVP ONE (01:31)
[2016-10-28] MEDS ORDERED: PROMETHAZINE HCL 25 MG/ML INJ IVP PRN (03:19)
[2016-10-28] MEDS ORDERED: LORazepam 2 MG/ML INJ IVP PRN (03:19)
[2016-10-28] MEDS ORDERED: ACETAMINOPHEN 325 MG TAB PO PRN (03:19)
[2016-10-28] MEDS ORDERED: ONDANSETRON DISINTEGRATING 4 MG TAB PO PRN (03:19)
[2016-10-28] MEDS ORDERED: ONDANSETRON 4 MG/2 ML VIAL IVP PRN (03:19)
[2016-10-28] MEDS ORDERED: HYDROCODONE/APAP 5/325 TAB PO PRN (03:19)
[2016-10-28] MEDS ORDERED: HALOPERIDOL LACT 5 MG/ML INJ IVP PRN (03:19)
--- NOTE | 2016-10-28 03:28 | PDGENHP ---
History and Physical - Chief Complaint confusion/? 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 Apparently he was noted to be drinking lots of water today and then later in the day was confused and agitated appearing and there were concerns raised that he may have a had a seizure in halfway. On initial evaluation in the ER and by EMS it was felt that he had some left sided weakness as well as left side gaze preference although this fairly rapidly resolved. At the time of my evaluation patient is lying quietly in bed and is answering questions appropriately. He notes that he feels his thinking is normal and that he has had to urinate a lot but otherwise has no real complaints. Denies pain, denies numbness or weakness. He is a poor historian however and is really unable to provide any meaningful history as to what brought him to the ER initially. History Information - Allergies/Home Medication List Allergies/Adverse Reactions: codeine [Codeine] Allergy (Verified 03/14/15 08:00) Penicillins Allergy (Verified 03/14/15 08:00) Home Medications: Albuterol [Proventil Inhaler HFA (*)] 1 puffs IH QID PRN 09/12/16 [Last Taken Unknown] Beclomethasone Qvar 80 [Qvar 80 (*)] 1 puffs IH BID 09/12/16 [Last Taken Unknown ] Benztropine Mesylate [Cogentin] 1 mg PO BID 09/12/16 [Last Taken Unknown] Ibuprofen [Motrin (*)] 800 mg PO BID PRN 09/12/16 [Last Taken Unknown] Omeprazole [Prilosec 20 mg] 20 mg PO DAILY 09/12/16 [Last Taken Unknown] Perphenazine [Trilafon 16mg (*)] 16 mg PO HS 09/12/16 [Last Taken 09/11/16] Psyllium Husk (with Sugar) [Metamucil Packet] 1 each PO DAILY 09/12/16 [Last Taken Unknown] Tamsulosin HCl [Flomax 0.4 MG (*)] 0.4 mg PO DAILY 09/12/16 [Last Taken Unknown] I have personally reviewed and updated: family history, medical history, social history, surgical history - Past Medical History asthma, GERD Additional medical history: H/O alcohol abuse, H/O MRSA, 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 recurrent hyponatremia and polygenic polydipsia - Surgical History Reports: no pertinent surgical hx - Family History Positive for: non-pertinent - Social History Smoking Status: Heavy smoker Alcohol Use: Other (heavy in the past, presumably now sober since in halfway) Drug Use: None Additional social history: Homeless, currently in halfway for past several months Review of Systems ROS: 10pt was reviewed & negative except for what was stated in HPI & below Physical Exam Temp Pulse Resp BP Pulse Ox 36.8 C 95 16 130/90 H 94 10/28/16 02:37 10/28/16 02:37 10/28/16 02:37 10/28/16 02:37 10/28/16 02:37 Constitutional: no apparent distress, not in pain, unkempt Eyes: PERRL, anicteric sclera Ears, Nose, Mouth, Throat: moist mucous membranes, poor dentition Cardiovascular: regular rate and rhythym, no murmur, rub, or gallop, No edema Respiratory: no respiratory distress, no rales or rhonchi, clear to auscultation Gastrointestinal: normoactive bowel sounds, soft, non-tender abdomen Genitourinary: no bladder tenderness Skin: warm, normal color Musculoskeletal: full muscle strength, no muscle tenderness Neurologic: AAOx3, CN II-XII Intact Psychiatric: interacting appropriately, flat affect Lab Data & Imaging Review 10/28/16 00:10 10/28/16 00:10 WBC 13.11 10^3/uL (3.80-9.50) H 10/28/16 00:10 RBC 3.79 10^6/uL (4.40-6.38) L 10/28/16 00:10 Hgb 12.2 g/dL (13.7-17.5) L 10/28/16 00:10 Hct 35.7 % (40.0-51.0) L 10/28/16 00:10 MCV 94.2 fL (81.5-99.8) 10/28/16 00:10 MCH 32.2 pg (27.9-34.1) 10/28/16 00:10 MCHC 34.2 g/dL (32.4-36.7) 10/28/16 00:10 RDW 11.9 % (11.5-15.2) 10/28/16 00:10 Plt Count 199 10^3/uL (150-400) 10/28/16 00:10 MPV 9.4 fL (8.7-11.7) 10/28/16 00:10 Neut % (Auto) 69.1 % (39.3-74.2) 10/28/16 00:10 Lymph % (Auto) 22.6 % (15.0-45.0) 10/28/16 00:10 [place] % (Auto) 5.8 % (4.5-13.0) 10/28/16 00:10 Eos % (Auto) 1.2 % (0.6-7.6) 10/28/16 00:10 Baso % (Auto) 0.3 % (0.3-1.7) 10/28/16 00:10 Nucleat RBC Rel Count 0.0 % (0.0-0.2) 10/28/16 00:10 Absolute Neuts (auto) 9.06 10^3/uL (1.70-6.50) H 10/28/16 00:10 Absolute Lymphs (auto) 2.96 10^3/uL (1.00-3.00) 10/28/16 00:10 Absolute Monos (auto) 0.76 10^3/uL (0.30-0.80) 10/28/16 00:10 Absolute Eos (auto) 0.16 10^3/uL (0.03-0.40) 10/28/16 00:10 Absolute Basos (auto) 0.04 10^3/uL (0.02-0.10) 10/28/16 00:10 Absolute Nucleated RBC 0.00 10^3/uL (0-0.01) 10/28/16 00:10 Immature Gran % 1.0 % (0.0-1.1) 10/28/16 00:10 Immature Gran # 0.13 10^3/uL (0.00-0.10) H 10/28/16 00:10 PT 14.2 SEC (12.0-15.0) 10/28/16 00:10 INR 1.11 (0.83-1.16) 10/28/16 00:10 Sodium 128 mEq/L (134-144) L 10/28/16 00:10 Potassium 4.2 mEq/L (3.5-5.2) 10/28/16 00:10 Chloride 93 mEq/L (97-110) L 10/28/16 00:10 Carbon Dioxide 8 mEq/l (22-31) L* 10/28/16 00:10 Anion Gap 27 mEq/L (8-16) H 10/28/16 00:10 BUN 8 mg/dL (7-23) 10/28/16 00:10 Creatinine 1.1 mg/dL (0.7-1.3) 10/28/16 00:10 Estimated GFR > 60 10/28/16 00:10 Glucose 109 mg/dL (70-100) H 10/28/16 00:10 Calcium 9.2 mg/dL (8.5-10.4) 10/28/16 00:10 Troponin I < 0.012 ng/mL (0-0.034) 10/28/16 00:10 Urine Opiates Screen NEGATIVE (NEGATIVE) 10/28/16 01:13 Urine Barbiturates NEGATIVE (NEGATIVE) 10/28/16 01:13 Ur Phencyclidine Scrn NEGATIVE (NEGATIVE) 10/28/16 01:13 Ur Amphetamine Screen NEGATIVE (NEGATIVE) 10/28/16 01:13 U Benzodiazepines Scrn NEGATIVE (NEGATIVE) 10/28/16 01:13 Urine Cocaine Screen NEGATIVE (NEGATIVE) 10/28/16 01:13 U Marijuana (THC) Screen NEGATIVE (NEGATIVE) 10/28/16 01:13 Ethyl Alcohol < 10 mg/dL (0-10) 10/28/16 00:10 Visualized and Interpreted Chest x-ray results: Yes Chest X-Ray results: other (cardiomegaly, no clear infiltrate) Visualized and Interpreted imaging results: Yes Interpretation: head CT: remote infarct, nothing acute Visualized and Interpreted EKG results: Yes EKG Interpretation: Positive for: normal sinsus rhythm Assessment & Plan Assessment: Confusion (Acute) Encephalopathy (Acute) Hyponatremia (Acute) 56 yo M with hx of schizophrenia and psychogenic polydipsia presenting with acute encephalopathy and left sided weakness # acute encephalopathy: has essentially resolved since arrival. Most likely due to post ictal state though etiology for seizure unclear given only mildly low Na levels. Other consideration would be for TIA vs CVA with associated left sided weakness present on arrival, though that too was rapidly resolving and per tele-neurologist, felt CVA less likely. Possible ingestion especially given significant AGMA as next, but of what is also unclear. Will monitor for now given rapid improvement, neurology consulted and will eval in person in am. # AGMA: with possibility of seizure prior to arrival, lactic acid pending. Will get UA to eval for ketones and crystals given consideration of toxic alcohol ingestions especially in this incarcerated man with a hx of etoh abuse in the past. Will check apap/salicylate level and serum osmols--if on repeat BMP gap is still high and plasma osmolal gap high would consider testing for methanol/ ethylene glycol/isopropyl alcohol directly although would not likely change manager # hyponatremia: currently only mildly low sodium level in patient who has chronic hyponatremia and has been in the low 110s in the past. Do not suspect that this is the primary etiology for his acute presentation. Has hx of polygenic polydipsia and will fluid restrict and monitor. # etoh abuse: presumably in remission given incarceration, as above # leukocytosis: without other s/s of acute infection, UA pending but cxr without clear e/o pna (radiology read pending) # observation status, will likely need < 48 hours stay for eval/mgmt of above Patient new to my care. Old records reviewed and summarized as above. Care plan reviewed with ER physician. Further hx obtained from [employer] present at bedside and present when patient initially found to be altered.
[2016-10-28 04:12] LABS: COLOR PALE YELLOW; LEUKOCYTE ESTERASE,URINE NEGATIVE (NEGATIVE); NITRITE,URINE NEGATIVE (NEGATIVE)
[2016-10-28 04:29] LABS: % IMMATURE GRANULYOCYTES 0.6 % (0.0-1.1); ABSOLUTE IMMATURE GRANULOCYTES 0.06 10^3/uL (0.00-0.10); ADD DIFF? NO; ADD MORPH? NO; ADD SCAN? NO; ATYPICAL LYMPHOCYTE FLAG 0 (0-99); FRAGMENT RBC FLAG 0 (0-99); HEMATOCRIT 34.2 % (40.0-51.0); HEMOGLOBIN 12.4 g/dL (13.7-17.5); LEFT SHIFT FLG 10 (0-99); LIPEMIA HEMOLYSIS FLAG 90 (0-99); MEAN CELL HEMOGLOBIN 31.6 pg (27.9-34.1); MEAN CELL HEMOGLOBIN CONCENTR. 36.3 g/dL (32.4-36.7); PLATELET CLUMPS FLAG 0 (0-99); PLATELET COUNT 169 10^3/uL (150-400); RED BLOOD CELL COUNT 3.93 10^6/uL (4.40-6.38); RED CELL DISTRIBUTION WIDTH 11.6 % (11.5-15.2)
[2016-10-28 04:34] LABS: ALANINE AMINOTRANSFERASE 28 IU/L (21-72); ALBUMIN 4.5 g/dL (3.5-5.0); ALKALINE PHOSPHATASE 73 IU/L (38-126); ANION GAP 14 mEq/L (8-16); ASPARTATE AMINOTRANSFERASE 26 IU/L (17-59); BILIRUBIN,TOTAL 1.1 mg/dL (0.1-1.4); BILIRUBIN-CONJUGATED 0.4 mg/dL (0.0-0.5); BILIRUBIN-UNCONJUGATED 0.7 mg/dL (0.0-1.1); CALCIUM 9.1 mg/dL (8.5-10.4); CARBON DIOXIDE 19 mEq/l (22-31); CHLORIDE 94 mEq/L (97-110); CREATININE 0.9 mg/dL (0.7-1.3); GLOMERULAR FILTRATION RATE > 60; GLUCOSE 102 mg/dL (70-100); MAGNESIUM 1.9 mg/dL (1.6-2.3); POTASSIUM 4.3 mEq/L (3.5-5.2); SALICYLATE < 1.0 mg/dL (2.0-20.0); SODIUM 127 mEq/L (134-144)
[2016-10-28] MEDS: ENOXAPARIN 40 MG/0.4 ML SYR SC SCH (10:13)
[2016-10-28 12:52] LABS: ANION GAP 14 mEq/L (8-16); CALCIUM 9.3 mg/dL (8.5-10.4); CARBON DIOXIDE 20 mEq/l (22-31); CHLORIDE 99 mEq/L (97-110); CREATININE 0.9 mg/dL (0.7-1.3); GLOMERULAR FILTRATION RATE > 60; GLUCOSE 90 mg/dL (70-100); POTASSIUM 3.9 mEq/L (3.5-5.2); SODIUM 133 mEq/L (134-144)
[2016-10-28] MEDS ORDERED: ALBUTEROL 200 PUFFS/18 GM MDI IH PRN (12:56)
--- NOTE | 2016-10-28 13:41 | HOSPPROG ---
Hospitalist Progress Note Assessment/Plan: Acute encephalopathy - Improved, suspect seizure with low serum bicarb and possible post-ictal state on arrival. No seizure activity since arrival. He was seen in ED for seizure 05/2013, possibly secondary to etoh w/d. CT here shows encephalomalacia from old trauma vs old infarct, unchanged. Discussed with Dr. Mckeon, unlikely to start anti-epileptics at this point. -cont seizure precautions -prn ativan for recurrent seizures -should he seize again, would consider initiation of keppra until f/u with neurology tomorrow -await further recs from neurology Hyponatremia - likely psychogeneic polydipsia, Na nearly normalized with fluid restriction. -cont fluid restriction, 1 L -follow AGMA - Gap closed, CO2 normalizing rapidly, suspect seizure. H/O alcohol abuse - BAL <10 on arrival. Schizophrenia - stable, cont outpt meds Dispo - obs Subjective: Pt is somnolent, awakens to verbal stimuli, answers questions, then drifts off again. Seems withdrawn. Does endorse prior seizure a few years ago , unsure of cause. No umanzor, vision changes or fevers. Objective: Vital Signs Temp Pulse Resp BP Pulse Ox 36.7 C 76 16 115/70 94 10/28/16 07:59 10/28/16 11:48 10/28/16 11:48 10/28/16 11:48 10/28/16 11:48 Laboratory Results 10/28/16 04:17 10/28/16 12:22 10/27/16 10/28/16 10/29/16 05:59 05:59 05:59 Intake Total 20 0 Output Total 1979 725 Balance -1960 -725 PT 14.2 SEC (12.0-15.0) 10/28/16 00:10 INR 1.11 (0.83-1.16) 10/28/16 00:10 - Physical Exam Constitutional: no apparent distress Eyes: PERRL Ears, Nose, Mouth, Throat: moist mucous membranes Cardiovascular: regular rate and rhythym, no murmur, rub, or gallop Respiratory: no respiratory distress, clear to auscultation Gastrointestinal: normoactive bowel sounds, soft, non-tender abdomen Skin: warm Musculoskeletal: full muscle strength ICD10 Worksheet Patient Problems: Problems Problem Status Onset Confusion Acute Encephalopathy Acute Hyponatremia Acute Alcohol intoxication Acute Altered mental status Acute History of acute alcohol intoxication Acute Hyponatremia Acute Laceration of intraoral surface of lip Acute Osteomyelitis of foot, right, acute Acute
--- NOTE | 2016-10-28 13:58 | GCON ---
[f rep st] CONSULTATION REFERRING PHYSICIAN: Josie Pak MD HISTORY: The patient is a 56-year-old gentleman, whom I am asked to see for an episode of altered n eurologic function. The history is obtained from review of the records, predominantly because of th e patient's ability to remember the event. He is very limited and he is not particularly communicat leroy. He has a history of schizophrenia. He was in the nursing home. He is currently in his bed and able t o communicate with me some, but fairly passive and not providing much history, since he does not tamia lly remember what occurred. According to all of the medical records that I have available, starting with the emergency department, he was in the nursing home, when there was a notice that he had a change in his function. He had confusion and EMS arrived, and they noted that he seemed to have some left-nikita ed weakness in the arm and leg and some right gaze preference. He came in as a stroke alert, when nasim carrillo was last seen normal at 2230, which was an hour and a half before coming to the emergency room. Nasim carrillo was immediately evaluated and thought to have perhaps some left-sided weakness, and was preferring to look toward the right. He had an acute head CT, which showed some encephalomalacia in the right temporal region of uncertain cause, but either from trauma or some old lesion. No new lesions were identified. He had a comparison to a scan from 2013, as well with CT and MRI. He was subsequently found to have hyponatremia, and admitted that he drinks extensive water, although how much of a marisa nges this represents is not entirely clear. He has schizophrenia, as well. He does not have any kn own seizure disorder. It was felt that he was not a candidate for tPA after a consultation with [facility], with the fact that there was some uncertainty on the diagnosis, and suspicion that this may be related to his hyponatremia as opposed to acute ischemic change. MEDICATIONS: Prior to admission, Proventil, Qvar, Cogentin, Motrin, Prilosec, Trilafon, Flomax. PAST MEDICAL HISTORY: He has a history of alcohol abuse, MRSA, gangrene with frostbite, hyponatremi a, psychogenic polydipsia. FAMILY HISTORY: Unavailable. SOCIAL HISTORY: Heavy smoking. No apparent alcohol use recently, though we do not know exactly the last use. He has typically been homeless, and has been in the nursing home for several months. PHYSICAL EXAMINATION: VITAL SIGNS: Blood pressure 127/77, pulse of 81, respirations 14, temperatur e 36.7. GENERAL: He is well developed, lying in bed, in no acute distress, and not particularly co operative, lying on his left side. HEENT: Extraocular movements seem to be intact. Pupils 3 mm an d reactive. I do not detect focal numbness or weakness in the face. EXTREMITIES: No weakness or n umbness in the extremities given his limited participation in the exam. NEUROLOGIC: No other focal features or reflex asymmetries. DIAGNOSTIC DATA: I reviewed the diagnostic study of the head CT, and do not see anything acute. LABORATORY STUDIES: Most notable for having a profound acidosis, when he initially came in with a b icarbonate of 8, and now at 4:17 a.m. on the it was up to 19. Sodium 128, has been stable. Hy poosmolality in the serum at 259. Normal liver enzymes. Mild anemia. Negative toxicology screen. IMPRESSION: The patient may have had a seizure, based on the fact that there was initial acidosis, confusion, and now rapid clearing back to his baseline without other more profound deficits. I do n ot detect any abnormalities on his exam currently, giving him a National [employer] Stroke Scale of 0. I do not think this was the acute cerebral ischemia to the right hemisphere at this po int. It is a differential consideration, but seems unlikely. The hyponatremia is probably from psy chogenic polydipsia, and is not an acute problem apparently, and may or may not be part of the preci pitating cause. An EEG is not likely to be something that would change our acute management, so I c an defer on that. I would not recommend committing him to anticonvulsant therapy, at this point, wi th a single episode of suspected seizure and somewhat unclear on his true future risk. The nurse karen so told me that he is having some fecal incontinence of completely unclear cause. If he can be up a nd about and stable and not having ongoing incontinence, then he could be discharged from a neurolog ic standpoint with followup as needed. TOTAL UNIT TIME: 55 minutes. /[id number]/MODL
[2016-10-28] MEDS: BECLOMETHASONE QVAR 80 MDI IH SCH ×2 (14:51→21:24)
[2016-10-28] MEDS: PANTOPRAZOLE SODIUM 40 MG TAB PO SCH (15:35)
[2016-10-28] MEDS: BENZTROPINE MESYLATE 1 MG TAB PO SCH ×2 (15:36→21:34)
[2016-10-28] MEDS: TAMSULOSIN HCL 0.4 MG CAP PO SCH (15:36)
[2016-10-28] MEDS ORDERED: PERPHENAZINE 16 MG PO SCH (21:00)
[2016-10-29 05:43] LABS: ANION GAP 13 mEq/L (8-16); CALCIUM 9.5 mg/dL (8.5-10.4); CARBON DIOXIDE 23 mEq/l (22-31); CHLORIDE 102 mEq/L (97-110); GLOMERULAR FILTRATION RATE > 60; GLUCOSE 102 mg/dL (70-100); SODIUM 138 mEq/L (134-144)
[2016-10-29 07:47] VITALS: BP 112/74; PULSE 67; RESP 14; TEMP 97; O2SAT 94
[2016-10-29] MEDS: ENOXAPARIN 40 MG/0.4 ML SYR SC SCH (08:19)
[2016-10-29] MEDS: PANTOPRAZOLE SODIUM 40 MG TAB PO SCH (08:19)
[2016-10-29] MEDS: BENZTROPINE MESYLATE 1 MG TAB PO SCH (08:19)
[2016-10-29] MEDS: TAMSULOSIN HCL 0.4 MG CAP PO SCH (08:20)
--- NOTE | 2016-10-29 08:53 | NEUROPROG ---
Assessment: In all probability, the patient experienced seizure with a prior history of seizure and old temporal lobe pathology. He is at some risk for recurrence, but the hyponatremia might have been a trigger as well. For that reason, we are going to defer on starting anticonvulsants for now but will consider that in the future if he were to experience any other seizures. Assuming he is able to safely ambulate, he should be able to be discharged today with outpatient follow-up as needed. Total unit time today was 25 minutes with greater than 50 % time [id number] discussion. Subjective: The patient tells me that he is feeling much better today and has no new complaints, although he does not remember the conversations we had yesterday. No recurrent seizure activity has been reported and no other deficits documented. He is no longer incontinent. Objective: Vital Signs Temp Pulse Resp BP Pulse Ox 36.1 C 67 14 112/74 94 10/29/16 07:46 10/29/16 07:46 10/29/16 07:46 10/29/16 07:46 10/29/16 07:46 Laboratory Results 10/28/16 04:17 10/29/16 05:19 10/28/16 10/29/16 10/30/16 05:59 05:59 05:59 Intake Total 20 700 250 Output Total 1980 1885 Balance -1960 -1185 250 PT 14.2 SEC (12.0-15.0) 10/28/16 00:10 INR 1.11 (0.83-1.16) 10/28/16 00:10 Alert and attentive and able to communicate effectively and oriented although amnestic for the prior events. This was probably simply from excessive sedation and postictal state. His sodium level has now normalized. Allergies/Adverse Reactions: codeine [Codeine] Allergy (Verified 03/14/15 08:00) Penicillins Allergy (Verified 03/14/15 08:00)
--- NOTE | 2016-10-30 06:20 | GDS ---
[f rep st] DISCHARGE SUMMARY DISCHARGE DIAGNOSES: 1. Acute encephalopathy, resolved. 2. Suspected seizure. 3. Hyponatremia secondary to psychogenic polydipsia, resolved. 4. Anion gap metabolic acidosis, resolved. 5. Encephalomalacia. 6. History of bipolar disorder versus schizophrenia. HISTORY OF DETAILS: Please see the history and physical dated October 28, 2016. In brief, Mr. Constantino is a 56-year-old male with a history of hyponatremia secondary to psychogenic polydipsia who present s to the emergency department with confusion and acute encephalopathy. He was admitted to the [facility] for further evaluation. HOSPITAL COURSE: The patient was admitted to the Medr unit. He was placed on a fluid restrictio n, and his sodium slowly corrected. His initial labs were suspicious for a seizure as an explanatio n of his altered mental status on arrival, as his initial CO2 was 8. His sodium was 128, which is n ot a typical range to produce a seizure; however, it is possible his sodium was lower prior to arriv al, and if he had a seizure, that may have resulted in some time with restriction of fluids, possibl y explaining a higher sodium on admission. His serum bicarb normalized with IV fluids. Neurology c onsult was obtained and ultimately did not recommend antiseizure medications. However, should he umanzor ve a recurrent seizure, antiepileptics would likely be indicated. He had no further seizure activit y throughout the hospitalization. A head CT was done on admission, which showed chronic encephalomalacia in the right temporal lobe po ssibly from a previous trauma versus an old infarct. This was also present on prior imaging studies . The patient also had a seizure in 2013 based on chart review, which may have been in the setting of alcohol withdrawal. Since he has been staying at the detention, he denies any alcohol use. On the da y of discharge, his mentation had completely normalized. He was continued on his outpatient psychot ropic medications. DISPOSITION: The patient is discharged back to detention in police custody in stable condition. DISCHARGE MEDICATIONS: Please see [facility] for complete updated outpatient medication list. There are no new medications on discharge. However, his lisinopril is discontinued given his blood pressu re was 110s over 70s. FOLLOWUP: He should have followup with the [facility] healthcare provider in 3 to 5 days t o have his blood pressure rechecked as well as a basic metabolic panel. Lisinopril can be re-initia stacia as indicated if he has elevated blood pressures. DIET: The patient was instructed to maintain a 1.5 L fluid restriction to avoid further problems wi th his sodium. He was able to verbalize this back to me and understands the plan going forward. /[id number]/MODL
== END 2016-10-29 10:46 | DRG 640 ==
LOC: EDUNIT# → INTOOBSV 01:05 → EEVIPCON 01:05 → F3E 01:54 → OBSVTOIN 16:52
PROVIDERS: ADMIT Internal Medicine; ATTEND Internal Medicine
DX: E87.1 Hypo-osmolality and hyponatremia (principal); G93.49 Other encephalopathy; R63.1 Polydipsia; E87.2 Acidosis; G40.909 Epilepsy, unspecified, not intractable, without status epilepticus; G93.89 Other specified disorders of brain; F31.9 Bipolar disorder, unspecified; F20.9 Schizophrenia, unspecified; I10 Essential (primary) hypertension; J44.9 Chronic obstructive pulmonary disease, unspecified; Z72.0 Tobacco use
CPT/HCPCS: 80305; 97161-GP; G0378; G0480; J1650; J2060

== ENCOUNTER 2017-05-30 10:24 | Emergency (ER) | payer MEDICAID ==
[2017-05-30 10:45] VITALS: O2SAT 96
--- NOTE | 2017-05-30 11:02 | EDPHY ---
H & P Time Seen by Provider: 05/30/17 10:34 HPI/ROS: CHIEF COMPLAINT: Alcohol intoxication HISTORY OF PRESENT ILLNESS: The patient is a 56-year-old male who presents emergency department via [facility] with alcohol intoxication. Per the patient, he has drank significant alcohol today. He denies drug use. He denies fall or injury. The patient was unable to ambulate upon contact. He is brought in by [facility]. I discussed the case with [place] police who were present. They stated they initially felt the patient had a warrant for his arrest, but they later found that this was an error. REVIEW OF SYSTEMS: My complete review of systems is negative except as mentioned in the HPI. Past Medical/Surgical History: Includes alcohol abuse, hypertension, head injury, seizures, MRI say, frostbite , COPD Smoking Status: Heavy smoker Physical Exam: Vitals noted GENERAL: No acute distress, alert. HEENT: Eyes normal to inspection, normal pharynx, no signs of dehydration. NECK: No thyromegaly, no lymphadenopathy, supple. RESPIRATORY: Clear to auscultation bilaterally, no rales, rhonchi or wheezing. CVS: Regular rate and rhythm, no rubs, murmurs, or gallops. ABDOMEN: Soft, nontender, nondistended, no organomegaly. BACK: Normal to inspection, no CVA tenderness. SKIN: Normal color, no rash, warm, dry. No pallor. EXTREMITIES: No pedal edema, no calf tenderness, no Homans sign or cords, no joint swelling. NEURO/PSYCH: Alert and oriented x3, normal mood and affect, normal motor sensory exam. No obvious cranial nerve deficit. Constitutional: Initial Vital Signs Temperature (C) 36.7 C 05/30/17 10:25 Heart Rate 89 05/30/17 10:25 Respiratory Rate 16 05/30/17 10:25 Blood Pressure 96/56 L 05/30/17 10:25 O2 Sat (%) 96 05/30/17 10:25 O2 Delivery Mode Room Air Allergies/Adverse Reactions: codeine [Codeine] Allergy (Verified 03/14/15 08:00) Penicillins Allergy (Verified 03/14/15 08:00) Home Medications: Medication Instructions Recorded Albuterol [Proventil Inhaler HFA 1 puffs IH QID PRN 09/12/16 (*)] Beclomethasone Qvar 80 [Qvar 80 1 puffs IH BID 09/12/16 (*)] Benztropine Mesylate [Cogentin] 1 mg PO BID 09/12/16 Ibuprofen [Motrin (*)] 800 mg PO BID PRN 09/12/16 Omeprazole [Prilosec 20 mg] 20 mg PO DAILY 09/12/16 Perphenazine [Trilafon 16mg (*)] 16 mg PO HS 09/12/16 Psyllium Husk (with Sugar) 1 each PO DAILY 09/12/16 [Metamucil Packet] Tamsulosin HCl [Flomax 0.4 MG (*)] 0.4 mg PO DAILY 09/12/16 Medical Decision Making ED Course/Re-evaluation: In the emergency department I met PD on arrival. I took report from the officer. I also discussed case with [facility]. I discussed the plan with the patient. Patient will be observed until he metabolizes his alcohol. I rechecked the patient on numerous occasions. He was stable throughout his stay. I rechecked the patient is doing better. He is able to ambulate. He will be sent to the [facility]. Differential Diagnosis: My differential includes but is not limited to alcohol intoxication, drug abuse , closed-head injury, postictal state, seizure, hypothermia, electrolyte abnormality, sugar abnormality Departure - Departure Disposition: Home, Routine, Self-Care Clinical Impression: Alcohol intoxication Qualifiers: Complication of substance-induced condition: uncomplicated Qualified Code(s): F10.920 - Alcohol use, unspecified with intoxication, uncomplicated Condition: Good Instructions: Alcohol Intoxication (ED) Additional Instructions: Return with worsening symptoms or complaints. Referrals: [facility],. [Clinic] - 2-3 days, if not improved
[2017-05-30] MEDS ORDERED: CHLORDIAZEPOXIDE 25MG PREPK#6 BTL TAKEHOME ONE (13:52)
[2017-05-30 14:08] VITALS: PULSE 78; TEMP 97.2
[2017-05-30 14:15] VITALS: BP 96/56; RESP 14
== END 2017-05-30 14:15 | disposition home or self-care (01) ==
LOC: EDUNIT#
DX: F10.920 Alcohol use, unspecified with intoxication, uncomplicated (principal); F17.200 Nicotine dependence, unspecified, uncomplicated; I10 Essential (primary) hypertension; J44.9 Chronic obstructive pulmonary disease, unspecified

== ENCOUNTER 2017-09-17 20:18 | Emergency (ER) | payer MEDICAID ==
--- NOTE | 2017-09-17 20:28 | EDPHY ---
H & P Time Seen by Provider: 09/17/17 21:46 HPI/ROS: HPI CHIEF COMPLAINT: Multiple complaints. HISTORY OF PRESENT ILLNESS: This patient 57-year-old male, he arrives by EMS reports that he was intoxicated and vomiting. Police report that 911 was called to a private residence for a alliance party that was down vomiting. EMS brings the patient to the emergency room stating that he is drunk and was vomiting however upon evaluation the patient is not drunk and is completely lucid and initially complained of bilateral feet pain to EMS however states he does not have any feet pain. The story seems to be changing. The patient here in emergency room is answer my questions appropriately. He denies any current complaints. It is unclear if he had a seizure and was postictal. This story does keep changing. Past Medical History: Review of records reveal history of bipolar schizophrenia , seizure disorder, hyponatremia, acute encephalopathy, alcohol use Past Surgical History: No recent surgery Social History: Does drink alcohol daily. However reports to me did not have any alcohol today. Homelessness. Family History: Noncontributory ROS REVIEW OF SYSTEMS: A comprehensive 10 point review of systems is otherwise negative aside from elements mentioned in the history of present illness. Exam Constitutional disheveled, unkept triage nursing summary reviewed, vital signs reviewed, awake/alert. Eyes normal conjunctivae and sclera, EOMI, PERRLA. HENT normal inspection, atraumatic, moist mucus membranes, no epistaxis, neck supple/ no meningismus, no raccoon eyes. Respiratory clear to auscultation bilaterally, normal breath sounds, no respiratory distress, no wheezing. Cardiovascular rate normal, regular rhythm, no murmur, no edema, distal pulses normal. Gastrointestinal soft, non-tender, no rebound, no guarding, normal bowel sounds, no distension, no pulsatile mass. Genitourinary no CVA tenderness. Musculoskeletal no midline vertebral tenderness, full range of motion, no calf swelling, no tenderness of extremities, no meningismus, good pulses, neurovascularly intact. Skin pink, warm, & dry, no rash, skin atraumatic. Neurologic awake, alert and oriented x 3, AAOx3, moves all 4 extremities equally, motor intact, sensory intact, CN II-XII intact, normal cerebellar, normal vision, normal speech. Psychiatric normal mood/affect. Heme/Lymph/Immune no lymphadenopathy. Differential Diagnosis: Includes but is not limited electrolyte disturbance, seizure with postictal state, alcohol intoxication, vomiting, dehydration, acute infection Medical Decision Making: Plan for this patient IV establishment blood draw, IV fluid bolus 1 L normal saline, check serum alcohol, check drug screen, CT scan head without contrast, check electrolytes, EKG. Re-evaluate. Re-evaluation: EKG interpretation by me on record in [employer] system. Impression time of EKG 2041, sinus tachycardia of [address] elevation or significant ST depression or significant T-wave abnormalities. No prolonged intervals and no signs of cardiac arrhythmia. CT scan head without contrast negative for acute traumatic injury or bleed. Called to me by Dr. Dubois [id number]: Patient re-evaluated resting comfortably here in the emergency room in no acute distress. He has been sleeping. Blood work and CT reviewed. Shows that most likely he had a seizure given his low bicarb it is possible alcohol withdrawal seizure however the patient has stable vital signs here. Does not appear to be in acute withdrawal. Patient resting comfortably and sleeping. He is requesting his stay here to sleep for further. He is on arc hold. [facility] 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, L ankle MRSA 2009, frostbite on right toes, COPD - Social History Smoking Status: Heavy smoker Constitutional: Initial Vital Signs Temperature (C) 36.8 C 09/17/17 21:09 Heart Rate 87 09/17/17 21:09 Respiratory Rate 18 09/17/17 21:09 Blood Pressure 155/78 H 09/17/17 21:09 O2 Sat (%) 96 09/17/17 21:09 O2 Delivery Mode Room Air Allergies/Adverse Reactions: codeine [Codeine] Allergy (Verified 09/17/17 20:45) Penicillins Allergy (Verified 09/17/17 20:45) Home Medications: Medication Instructions Recorded Albuterol [Proventil Inhaler HFA 1 puffs IH QID PRN 09/12/16 (*)] Beclomethasone Qvar 80 [Qvar 80] 1 puffs IH BID 09/12/16 Benztropine Mesylate [Cogentin] 1 mg PO BID 09/12/16 Ibuprofen [Motrin (*)] 800 mg PO BID PRN 09/12/16 Omeprazole [Prilosec 20 mg] 20 mg PO DAILY 09/12/16 Perphenazine [Trilafon 16mg (*)] 16 mg PO HS 09/12/16 Psyllium Husk (with Sugar) 1 each PO DAILY 09/12/16 [Metamucil Packet] Tamsulosin HCl [Flomax 0.4 MG (*)] 0.4 mg PO DAILY 09/12/16 Medical Decision Making - Diagnostics Imaging Results: Imaging Impressions Chest X-Ray 09/17/17 20:35 Impression: Nothing acute or focal. Head CT 09/17/17 20:35 Impression: Nothing new. Old hypodensity adjacent to the right temporal horn. Findings and recommendations discussed with Dr. Tsai at 9:24 PM hour, 2017. Final report concurs with initial preliminary interpretation. - Data Points Laboratory Results: Laboratory Results 09/17/17 20:18 09/17/17 20:18 09/17/17 09/17/17 09/17/17 22:06 20:18 20:18 WBC 8.51 10^3/uL 10^3/uL (3.80-9.50) RBC 4.76 10^6/uL 10^6/uL (4.40-6.38) Hgb 15.8 g/dL g/dL (13.7-17.5) Hct 46.3 % % (40.0-51.0) MCV 97.3 fL fL (81.5-99.8) MCH 33.2 pg pg (27.9-34.1) MCHC 34.1 g/dL g/dL (32.4-36.7) RDW 14.1 % % (11.5-15.2) Plt Count 108 10^3/uL L 10^3/uL (150-400) MPV 9.0 fL fL (8.7-11.7) Neut % (Auto) 81.9 % H % (39.3-74.2) Lymph % (Auto) 12.8 % L % (15.0-45.0) [place] % (Auto) 4.6 % % (4.5-13.0) Eos % (Auto) 0.0 % L % (0.6-7.6) Baso % (Auto) 0.2 % L % (0.3-1.7) Nucleat RBC Rel Count 0.0 % % (0.0-0.2) Absolute Neuts (auto) 6.97 10^3/uL H 10^3/uL (1.70-6.50) Absolute Lymphs (auto) 1.09 10^3/uL 10^3/uL (1.00-3.00) Absolute Monos (auto) 0.39 10^3/uL 10^3/uL (0.30-0.80) Absolute Eos (auto) 0.00 10^3/uL L 10^3/uL (0.03-0.40) Absolute Basos (auto) 0.02 10^3/uL 10^3/uL (0.02-0.10) Absolute Nucleated RBC 0.00 10^3/uL 10^3/uL (0-0.01) Immature Gran % 0.5 % % (0.0-1.1) Immature Gran # 0.04 10^3/uL 10^3/uL (0.00-0.10) Sodium 135 mEq/L mEq/L (135-145) Potassium 3.0 mEq/L L mEq/L (3.3-5.0) Chloride 91 mEq/L L mEq/L (97-110) Carbon Dioxide 14 mEq/l L mEq/l (22-31) Anion Gap 30 mEq/L H mEq/L (8-16) BUN 9 mg/dL mg/dL (7-23) Creatinine 0.8 mg/dL mg/dL (0.7-1.3) Estimated GFR > 60 Glucose 131 mg/dL H mg/dL (70-100) Calcium 8.9 mg/dL mg/dL (8.5-10.4) Troponin I < 0.012 ng/mL ng/mL (0.000-0.034) Urine Opiates Screen NEGATIVE (NEGATIVE) Urine Barbiturates NEGATIVE (NEGATIVE) Ur Phencyclidine Scrn NEGATIVE (NEGATIVE) Ur Amphetamine Screen NEGATIVE (NEGATIVE) U Benzodiazepines Scrn NEGATIVE (NEGATIVE) Urine Cocaine Screen NEGATIVE (NEGATIVE) U Marijuana (THC) Screen NON-NEGATIVE H (NEGATIVE) Ethyl Alcohol < 10 mg/dL mg/dL (0-10) Medications Given: Discontinued Medications Sodium Chloride (Ns) 1,000 mls @ 0 mls/hr IV ONCE ONE PRN Reason: Wide Open Stop: 09/17/17 20:36 Last Admin: 09/17/17 21:06 Dose: 1,000 mls Potassium Chloride (Potassium Chloride Oral Liquid) 40 meq PO EDNOW ONE Stop: 09/17/17 21:54 Last Admin: 09/17/17 22:08 Dose: 40 meq Departure - Departure Disposition: Home, Routine, Self-Care Clinical Impression: Seizure, Hypokalemia Condition: Fair Instructions: Epilepsy (ED), Hypokalemia (ED) Additional Instructions: 1. Follow up with your doctor 2. Return emergency room if you have worsening symptoms questions or concerns 3. Please refrain from drinking alcohol. Referrals: NONE *PRIMARY CARE P,. [Primary Care Provider] - As per Instructions
[2017-09-17] MEDS ORDERED: NS 1,000 ML IV ONE (20:35)
--- NOTE | 2017-09-17 20:43 | CPEKG ---
Heart Rate: 100 RR Interval: 600 P-R Interval: 180 QRSD Interval: 98 QT Interval: 356 QTC Interval: 460 P [place]: 55 QRS [place]: 92 T Wave [place]: 61 EKG Severity - OTHERWISE NORMAL ECG - EKG Impression: SINUS TACHYCARDIA EKG Impression: BORDERLINE RIGHT AXIS DEVIATION Electronically Signed By: Xavier Otero 17-Sep-2017 23:16:03
[2017-09-17 20:58] LABS: PLATELET COUNT 108 10^3/uL (150-400)
[2017-09-17] MEDS ORDERED: POTASSIUM CL 20 MEQ/15 ML UDCUP PO ONE (21:53)
[2017-09-17] MEDS ORDERED: CHLORDIAZEPOXIDE 25MG PREPK#6 BTL TAKEHOME ONE (22:58)
[2017-09-17 23:06] VITALS: BP 135/80
== END 2017-09-17 23:38 | disposition home or self-care (01) ==
LOC: EDUNIT#
DX: G40.909 Epilepsy, unspecified, not intractable, without status epilepticus (principal); E87.6 Hypokalemia; F17.200 Nicotine dependence, unspecified, uncomplicated; J44.9 Chronic obstructive pulmonary disease, unspecified; I10 Essential (primary) hypertension
CPT/HCPCS: 80305; G0480

== ENCOUNTER 2017-12-30 23:05 | Inpatient (IN) | payer MEDICAID ==
[2017-12-30] MEDS ORDERED: PERMETHRIN 5% 60 GM CREAM TP ONE (23:06)
--- NOTE | 2017-12-30 23:15 | EDPHY ---
H & P Time Seen by Provider: 12/30/17 23:12 HPI/ROS: HPI CHIEF COMPLAINT: Scabies/SOB HISTORY OF PRESENT ILLNESS: 57-year-old male, presents emergency room with scabies. Patient brought in by NABILA Edmond. He was initially placed the De-con shower shower and permethrin was applied. After the patient was De-con in the shower he was brought into ER room 3. Wears found to have a room air saturation of 83%. Patient does complain of worsening shortness of breath the last 24 hr. Additionally cough, and wheezing. Endorses a productive cough, yellow sputum. Additionally the patient states that he has had chills. Additionally he states he feels"awful" No chest pain. His last drink was approximately 4 hr ago. He does drink daily. Past Medical History: History bipolar disorder, schizophrenia, seizures, alcohol, homelessness alcoholism Past Surgical History: No recent surgery Social History: Daily alcohol use. Homeless. Smokes tobacco and marijuana. Family History: Noncontributory ROS REVIEW OF SYSTEMS: 10 Systems were reviewed and negative with the exception of the elements mentioned in the history of present illness. Exam Constitutional unkept, poor hygiene, triage nursing summary reviewed, vital signs reviewed, awake/alert. Room air saturation 83%. Eyes normal conjunctivae and sclera, EOMI, PERRLA. HENT normal inspection, atraumatic, moist mucus membranes, no epistaxis, neck supple/ no meningismus, no raccoon eyes. Respiratory wheezing throughout all lung fuentes. Cardiovascular rate normal, regular rhythm, no murmur, no edema, distal pulses normal. Gastrointestinal soft, non-tender, no rebound, no guarding, normal bowel sounds, no distension, no pulsatile mass. Genitourinary no CVA tenderness. Musculoskeletal no midline vertebral tenderness, full range of motion, no calf swelling, no tenderness of extremities, no meningismus, good pulses, neurovascularly intact. Skin excoriated lesions throughout his body, extensive dirt and debris under the left foot toenails. Neurologic awake, alert and oriented x 3, AAOx3, moves all 4 extremities equally, motor intact, sensory intact, CN II-XII intact, normal cerebellar, normal vision, normal speech. Psychiatric normal mood/affect. Heme/Lymph/Immune no lymphadenopathy. Differential Diagnosis: Includes but is not limited to in a particular order bronchitis, asthma, pneumonia, viral syndrome, bacterial pneumonia, dehydration , sepsis, bacteremia, scabies Medical Decision Making: Plan for this patient he has wheezing on exam DuoNeb breathing treatment, he has already been De-conned, permetherin will be applied. Chest x-ray, blood cultures, lactic acid, most likely will need hospital admission. Re-evaluation: Patient chest x-ray shows multifocal pneumonia. This explains his room air saturation of 83%. Otherwise his vital signs are stable here. He is hemodynamically stable without any hypotension or fever. Is noted that he had elevated lactic acid of 2.8. Severe sepsis was declared. Patient has been given a 30 mL/kilos fluid bolus at 2500 cc of normal saline. Additionally blood cultures were obtained. IV Rocephin and azithromycin were given for antibiotic coverage of what is most likely community-acquired pneumonia. However the patient is at risk for aspiration as he does drink alcohol heavily. No evidence of withdrawal at this time. Plan will be for hospital admission. Reason for admission hypoxia, pneumonia, anemia, scabies. Of note this patient has been showered in the ER shower. And permethrin cream has been ordered. This is to stay on 8 hr and then be showered off again. Plan on repeating lactic acid after fluid bolus and make sure this is trending down. He is not septic shock. Patient is doing well. On supplemental oxygen 2 L. 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, L ankle MRSA 2009, frostbite on right toes, COPD - Social History Smoking Status: Heavy smoker Constitutional: Initial Vital Signs Heart Rate 93 12/30/17 23:31 Respiratory Rate 18 12/30/17 23:31 Blood Pressure 181/105 H 12/30/17 23:31 O2 Sat (%) 95 12/30/17 23:31 O2 Delivery Mode Nasal Cannula O2 (L/minute) 2 Allergies/Adverse Reactions: codeine [Codeine] Allergy (Verified 10/13/17 19:22) Penicillins Allergy (Verified 10/13/17 19:22) Home Medications: Medication Instructions Recorded Albuterol [Proventil Inhaler HFA 1 puffs IH QID PRN 09/12/16 (*)] Beclomethasone Qvar 80 [Qvar 80] 1 puffs IH BID 09/12/16 Benztropine Mesylate [Cogentin] 1 mg PO BID 09/12/16 Ibuprofen [Motrin (*)] 800 mg PO BID PRN 09/12/16 Omeprazole [Prilosec 20 mg] 20 mg PO DAILY 09/12/16 Perphenazine [Trilafon 16mg (*)] 16 mg PO HS 09/12/16 Psyllium Husk (with Sugar) 1 each PO DAILY 09/12/16 [Metamucil Packet] Tamsulosin HCl [Flomax 0.4 MG (*)] 0.4 mg PO DAILY 09/12/16 Medical Decision Making - Data Points Laboratory Results: Laboratory Results 12/30/17 23:30 12/30/17 12/30/17 12/30/17 23:40 23:30 23:30 WBC 9.84 10^3/uL H 10^3/uL (3.80-9.50) RBC 2.65 10^6/uL L 10^6/uL (4.40-6.38) Hgb 8.3 g/dL L g/dL (13.7-17.5) Hct 26.3 % L % (40.0-51.0) MCV 99.2 fL fL (81.5-99.8) MCH 31.3 pg pg (27.9-34.1) MCHC 31.6 g/dL L g/dL (32.4-36.7) RDW 15.3 % H % (11.5-15.2) Plt Count 352 10^3/uL 10^3/uL (150-400) MPV 8.8 fL fL (8.7-11.7) Neut % (Auto) 50.1 % % (39.3-74.2) Lymph % (Auto) 17.3 % % (15.0-45.0) [place] % (Auto) 6.2 % % (4.5-13.0) Eos % (Auto) 25.3 % H % (0.6-7.6) Baso % (Auto) 0.6 % % (0.3-1.7) Nucleat RBC Rel Count 0.0 % % (0.0-0.2) Absolute Neuts (auto) 4.93 10^3/uL 10^3/uL (1.70-6.50) Absolute Lymphs (auto) 1.70 10^3/uL 10^3/uL (1.00-3.00) Absolute Monos (auto) 0.61 10^3/uL 10^3/uL (0.30-0.80) Absolute Eos (auto) 2.49 10^3/uL H 10^3/uL (0.03-0.40) Absolute Basos (auto) 0.06 10^3/uL 10^3/uL (0.02-0.10) Absolute Nucleated RBC 0.00 10^3/uL 10^3/uL (0-0.01) Immature Gran % 0.5 % % (0.0-1.1) Immature Gran # 0.05 10^3/uL 10^3/uL (0.00-0.10) RBC/WBC/PLT Morphology TNP Platelet Estimate TNP Smear Review By Pending VBG Lactic Acid Sodium Pending Potassium Pending Chloride Pending Carbon Dioxide Pending Anion Gap Pending BUN Pending Creatinine Pending Estimated GFR Pending Glucose Pending Calcium Pending Total Bilirubin Pending Conjugated Bilirubin Pending Unconjugated Bilirubin Pending AST Pending ALT Pending Alkaline Phosphatase Pending POC Troponin I 0.01 ng/mL ng/mL (0.00-0.08) NT-Pro-B Natriuret Pep Pending Total Protein Pending Albumin Pending Ethyl Alcohol Pending 12/30/17 23:30 WBC RBC Hgb Hct MCV MCH MCHC RDW Plt Count MPV Neut % (Auto) Lymph % (Auto) [place] % (Auto) Eos % (Auto) Baso % (Auto) Nucleat RBC Rel Count Absolute Neuts (auto) Absolute Lymphs (auto) Absolute Monos (auto) Absolute Eos (auto) Absolute Basos (auto) Absolute Nucleated RBC Immature Gran % Immature Gran # RBC/WBC/PLT Morphology Platelet Estimate Smear Review By VBG Lactic Acid 2.8 mmol/L H mmol/L (0.7-2.1) Sodium Potassium Chloride Carbon Dioxide Anion Gap BUN Creatinine Estimated GFR Glucose Calcium Total Bilirubin Conjugated Bilirubin Unconjugated Bilirubin AST ALT Alkaline Phosphatase POC Troponin I NT-Pro-B Natriuret Pep Total Protein Albumin Ethyl Alcohol Medications Given: Discontinued Medications Albuterol/Ipratropium (Duoneb) 3 ml IH EDNOW ONE Stop: 12/30/17 23:21 Last Admin: 12/30/17 23:40 Dose: 3 ml Sodium Chloride (Ns) 1,000 mls @ 0 mls/hr IV ONCE ONE; Wide Open PRN Reason: Protocol Stop: 12/30/17 23:21 Last Admin: 12/30/17 23:40 Dose: 1,000 mls Point of Care Test Results: Chemistry 12/30/17 23:40 POC Troponin I 0.01 ng/mL ng/mL (0.00-0.08) Departure - Departure Disposition: Home, Routine, Self-Care Clinical Impression: Scabies, Pneumonia, Hypoxia Condition: Good Instructions: Scabies (ED) Referrals: NONE *PRIMARY CARE P,. [Primary Care Provider] - As per Instructions
[2017-12-30] MEDS ORDERED: NS 1,000 ML IV ONE (23:20)
[2017-12-30] MEDS ORDERED: IPRATROPIUM/ALBUTEROL 3 ML DEYVIAL IH ONE (23:20)
[2017-12-30 23:41] LABS: PLATELET COUNT 352 10^3/uL (150-400)
[2017-12-31] MEDS ORDERED: NS 1,000 ML IV ONE (00:04)
[2017-12-31] MEDS ORDERED: NS 500 ML IV ONE (00:07)
[2017-12-31] MEDS ORDERED: ONDANSETRON 4 MG/2 ML VIAL IVP PRN (00:07)
[2017-12-31] MEDS ORDERED: ONDANSETRON DISINTEGRATING 4 MG TAB PO PRN (00:07)
[2017-12-31] MEDS ORDERED: ALBUTEROL 3 ML DEYVIAL IH PRN (00:07)
[2017-12-31] MEDS ORDERED: LORazepam 2 MG/ML INJ IVP PRN (00:23)
[2017-12-31] MEDS ORDERED: FLUMAZENIL 0.5 MG/5 ML MDV IVP PRN (00:23)
[2017-12-31] MEDS ORDERED: LORazepam 1 MG TAB PO PRN (00:23)
--- NOTE | 2017-12-31 01:32 | PDGENHP ---
History and Physical - Chief Complaint Shortness of breath - History of Present Illness 57 yo M w/ hx of homelessness, ETOH use disorder, and extensive tobacco use presents with shortness of breath. The patient tells me his symptoms started on the day of admission. He quickly became severely short of breath over the course of a few hours so came in the ED for evaluation. He has also noted subjective fevers, cough productive of white sputum, and mild sore throat. Upon arrival in the ED he was noted to be hypoxic, wheezing, and in respiratory distress. He is breathing more comfortably now after a nebulizer treatment. He tells me he thinks he has COPD but has not been formally diagnosed with this. He takes no medication regularly. He drinks about 750 mL of vodka daily and his last drink was last night at 7 PM. He does have history of prior ETOH withdrawal. Case discussed with ED physician Dr. Hoover; records reviewed in EMR. History Information - Allergies/Home Medication List Allergies/Adverse Reactions: codeine [Codeine] Allergy (Verified 10/13/17 19:22) Penicillins Allergy (Verified 10/13/17 19:22) Home Medications: Albuterol [Proventil Inhaler HFA (*)] 1 puffs IH QID PRN 09/12/16 [Last Taken Unknown] Beclomethasone Qvar 80 [Qvar 80] 1 puffs IH BID 09/12/16 [Last Taken Unknown] Benztropine Mesylate [Cogentin] 1 mg PO BID 09/12/16 [Last Taken Unknown] Ibuprofen [Motrin (*)] 800 mg PO BID PRN 09/12/16 [Last Taken Unknown] Omeprazole [Prilosec 20 mg] 20 mg PO DAILY 09/12/16 [Last Taken Unknown] Perphenazine [Trilafon 16mg (*)] 16 mg PO HS 09/12/16 [Last Taken 09/11/16] Psyllium Husk (with Sugar) [Metamucil Packet] 1 each PO DAILY 09/12/16 [Last Taken Unknown] Tamsulosin HCl [Flomax 0.4 MG (*)] 0.4 mg PO DAILY 09/12/16 [Last Taken Unknown] I have personally reviewed and updated: family history, medical history - Past Medical History COPD, GERD Additional medical history: H/O alcohol abuse, H/O MRSA, 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 recurrent hyponatremia and polygenic polydipsia - Surgical History Additional surgical history: L leg surgery after accident - Family History Positive for: CAD Additional family history: Alcoholism - Social History Smoking Status: Heavy smoker Alcohol Use: Heavy Additional social history: Homeless, currently in half-way for past several months Review of Systems Review of Systems: ROS: 10pt was reviewed & negative except for what was stated in HPI & below Physical Exam Physical Exam: Temp Pulse Resp BP Pulse Ox 97 20 156/99 H 97 12/31/17 01:07 12/31/17 01:07 12/31/17 01:07 12/31/17 01:07 O2 (L/minute) 2 Constitutional: appears nourished, unkempt Eyes: PERRL, EOMI Ears, Nose, Mouth, Throat: moist mucous membranes, no oral mucosal ulcers Cardiovascular: regular rate and rhythym, systolic murmur Respiratory: expiratory wheeze (Mild), respiratory distress Gastrointestinal: normoactive bowel sounds, soft, non-tender abdomen Skin: warm, other (Erythematous, punctate lesions throughout upper extremities) Musculoskeletal: full muscle strength, no muscle tenderness Neurologic: AAOx3, CN II-XII Intact Psychiatric: interacting appropriately, not anxious Lab Data & Imaging Review 12/30/17 23:30 12/30/17 23:30 WBC 9.84 10^3/uL (3.80-9.50) H 12/30/17 23:30 RBC 2.65 10^6/uL (4.40-6.38) L 12/30/17 23:30 Hgb 8.3 g/dL (13.7-17.5) L 12/30/17 23:30 Hct 26.3 % (40.0-51.0) L 12/30/17 23:30 MCV 99.2 fL (81.5-99.8) 12/30/17 23:30 MCH 31.3 pg (27.9-34.1) 12/30/17 23:30 MCHC 31.6 g/dL (32.4-36.7) L 12/30/17 23:30 RDW 15.3 % (11.5-15.2) H 12/30/17 23:30 Plt Count 352 10^3/uL (150-400) 12/30/17 23:30 MPV 8.8 fL (8.7-11.7) 12/30/17 23:30 Neut % (Auto) 50.1 % (39.3-74.2) 12/30/17 23:30 Lymph % (Auto) 17.3 % (15.0-45.0) 12/30/17 23:30 [place] % (Auto) 6.2 % (4.5-13.0) 12/30/17 23:30 Eos % (Auto) 25.3 % (0.6-7.6) H 12/30/17 23:30 Baso % (Auto) 0.6 % (0.3-1.7) 12/30/17 23: Nucleat RBC Rel Count 0.0 % (0.0-0.2) 12/30/17 23:30 Absolute Neuts (auto) 4.93 10^3/uL (1.70-6.50) 12/30/17 23:30 Absolute Lymphs (auto) 1.70 10^3/uL (1.00-3.00) 12/30/17 23:30 Absolute Monos (auto) 0.61 10^3/uL (0.30-0.80) 12/30/17 23:30 Absolute Eos (auto) 2.49 10^3/uL (0.03-0.40) H 12/30/17 23:30 Absolute Basos (auto) 0.06 10^3/uL (0.02-0.10) 12/30/17 23:30 Absolute Nucleated RBC 0.00 10^3/uL (0-0.01) 12/30/17 23:30 Immature Gran % 0.5 % (0.0-1.1) 12/30/17 23:30 Immature Gran # 0.05 10^3/uL (0.00-0.10) 12/30/17 23:30 RBC/WBC/PLT Morphology TNP 12/30/17 23:30 Platelet Estimate TNP 12/30/17 23:30 VBG Lactic Acid 1.2 mmol/L (0.7-2.1) 12/31/17 00:40 Sodium 140 mEq/L (135-145) 12/30/17 23:30 Potassium 3.5 mEq/L (3.3-5.0) 12/30/17 23:30 Chloride 105 mEq/L (97-110) 12/30/17 23:30 Carbon Dioxide 23 mEq/l (22-31) 12/30/17 23:30 Anion Gap 12 mEq/L (8-16) 12/30/17 23:30 BUN 15 mg/dL (7-23) 12/30/17 23:30 Creatinine 0.8 mg/dL (0.7-1.3) 12/30/17 23:30 Estimated GFR > 60 12/30/17 23:30 Glucose 78 mg/dL (70-100) 12/30/17 23:30 Calcium 8.0 mg/dL (8.5-10.4) L 12/30/17 23:30 Total Bilirubin 0.4 mg/dL (0.1-1.4) 12/30/17 23:30 Conjugated Bilirubin 0.2 mg/dL (0.0-0.5) 12/30/17 23:30 Unconjugated Bilirubin 0.2 mg/dL (0.0-1.1) 12/30/17 23:30 AST 45 IU/L (17-59) 12/30/17 23:30 ALT 41 IU/L (21-72) 12/30/17 23:30 Alkaline Phosphatase 130 IU/L (38-126) H 12/30/17 23:30 POC Troponin I 0.01 ng/mL (0.00-0.08) 12/30/17 23:40 NT-Pro-B Natriuret Pep 2510 pg/mL (0-125) H 12/30/17 23:30 Total Protein 6.3 g/dL (6.3-8.2) 12/30/17 23:30 Albumin 2.8 g/dL (3.5-5.0) L 12/30/17 23:30 Procalcitonin 0.11 ng/mL (0.02-0.10) H 12/30/17 23:30 Ethyl Alcohol 10 mg/dL (0-10) 12/30/17 23:30 Visualized and Interpreted Chest x-ray results: Yes Chest X-Ray results: other (Multifocal pneumonia) Assessment & Plan Assessment: 57 yo M w/ suspected COPD and ETOH use disorder presents with likely exacerbation from multifocal pneumonia. Plan: 1. Suspected COPD with acute exacerbation - 2/2 multifocal pneumonia; unclear if bacterial or viral at this time. Patient does not have formal COPD diagnosis but has 30+ pack year smoking history and presented in respiratory distress with diffuse wheezing. Work of breathing now improved after nebulizer treatments. - CAP coverage for now with CTX/Azithro - Respiratory PCR, procalcitonin sent - Duonebs QID sorin + albuterol q2h PRN - Prednisone 40 mg qD x5 days 2. AHRF - Room air saturation in the low 80's on initial presentation with respiratory distress noted as well. This is most likely 2/2 #1. The patient does not wear O2 at baseline. - Acute management as above - IS ordered, wean O2 as able 3. ETOH use disorder - Patient drinks 750 mL of vodka daily; last drink 7 PM on day of admission. No signs of withdrawal currently. - CIWA protocol ordered - Daily MVI, folate, thiamine 4. Anemia - Hgb 15.8->8.3 since August of this year. The patient denies overt signs of bleeding. Some of this may be due BM suppression from ETOH but he will likely need GI work-up. - Check ferritin - Monitor CBC - Recommend outpatient colonoscopy as long as H/H remain stable Diet - Regular Code - Full Ppx - SCDs Dispo - Admit under observation status
[2017-12-31] MEDS ORDERED: AZITHROMYCIN IV 500 MG in NS 250 ML IV ONE (02:15)
[2017-12-31] MEDS: ACETAMINOPHEN 325 MG TAB PO PRN (02:37)
[2017-12-31 05:27] LABS: PLATELET COUNT 265 10^3/uL (150-400)
[2017-12-31] MEDS: IPRATROPIUM/ALBUTEROL 3 ML DEYVIAL IH SCH ×4 (05:34→20:16)
[2017-12-31] MEDS: MULTIVITAMINS 1 EACH TAB PO SCH (08:47)
[2017-12-31] MEDS: FOLIC ACID 1 MG TAB PO SCH (08:47)
[2017-12-31] MEDS: predniSONE 20 MG TAB PO SCH (08:47)
[2017-12-31] MEDS ORDERED: ENOXAPARIN 40 MG/0.4 ML SYR SC SCH (09:00)
[2017-12-31] MEDS ORDERED: PANTOPRAZOLE SODIUM 40 MG VIAL IVP SCH (09:00)
--- NOTE | 2017-12-31 15:35 | HOSPPROG ---
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 * This is the 1st episode of eosinophilia that I can find for this patient; he did have scabies which could cause eosinophilia but the number is quite high for that malady * acute scabies, status post permethrin treatment in the ER * new onset severe anemia with iron deficiency (ferritin 17) and recent history of melenic stools and constipation * Worse today requiring transfusion of 1 unit packed red blood cells; drop likely due to hydration in ER at least in part * no visible acute bleeding seen at this time and blood pressures are stable * alcoholism with large volume vodka intake daily, high risk for acute withdrawal while here * CIWA protocol ordered along with thiamin * history of psychogenic polydipsia and hyponatremia due to mental health disease * Stable sodium here so far * mental health disorder (records unclear as to whether this is bipolar or schizophrenia) currently stable PLANS: * Continue empiric antibiotics at the moment * Continue bronchodilators and prednisone * Recheck eosinophilia in the morning * Will review with Dr. Ap Tan of pulmonology regarding possible allergic bronchopulmonary aspergillosis and workup for that * With eosinophilia will check an HIV this homeless patient * Will need upper and lower endoscopies during this admission before discharge but after his respiratory status stabilized * Protonix started, can eat unless he starts having active visible bleeding; no NSAIDs * Continue CIWA protocol for now * so far the pharmacy has been unable to reconcile home medicines so his home medicine list has not been signed off by me; I will order Trilafon for now as that is what he was taking most recently for his mental health issues but will need to try to further clarify what he is supposed to be taking at this time SUBJECTIVE: Patient is breathing feels better, no lightheadedness or dizziness, no chest pain or chills He does describe to me that he has had black stools intermittently over the past few weeks but no abdominal or rectal pain, is having some constipation Still itchy after the treatment for scabies No symptoms of alcohol withdrawal yet OBJECTIVE Vitals reviewed: All 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 His most recent hemoglobin was 15 early this summer, and he has never really had anemia in the past. Objective: Vital Signs Temp Pulse Resp BP Pulse Ox 37.1 C 96 16 134/75 H 92 12/31/17 11:21 12/31/17 11:21 12/31/17 14:55 12/31/17 11:21 12/31/17 14:55 Microbiology 12/31/17 01:00 Respiratory Panel (PCR) - Final Nasal, Sinus - Swab No Organism Detected Laboratory Results 12/31/17 04:51 12/31/17 04:51 12/30/17 12/31/17 01/01/18 06:59 06:59 06:59 Output Total 150 Balance -150 - Time Spent With Patient Time Spent with Patient: greater than 35 minutes Time Spent with Patient: Greater than 35 minutes spent on this patients care, greater than 50% of time spent counseling, educating, and coordinating care regarding the above mentioned plan. ICD10 Worksheet Patient Problems: Problems Problem Status Onset Hypoxia Acute Pneumonia Acute Scabies Acute Alcohol intoxication Acute Altered mental status Acute Confusion Acute Encephalopathy Acute History of acute alcohol intoxication Acute Hyponatremia Acute Hyponatremia Acute Laceration of intraoral surface of lip Acute Osteomyelitis of foot, right, acute Acute
--- NOTE | 2017-12-31 16:52 | ASMTCMCOM ---
CM Note CM Note Notes: CM reviewed pt's chart for d/c planning. Pt is a 57 y/o male admitted with acute hypoxemic respiratory failure, acute asthma exacerbation, acute interstitial pulmonary infiltrates, acute scabies and new onset severe anemia. Prior to hospitalization pt was transient. CM will meet with pt to determine if he is interested in a fpc bed following d/c. CM to follow. D/C Plan: TBD Date Signed: 12/31/2017 04:51 PM Electronically Signed By:Ifrah Lowery
[2017-12-31] MEDS: SODIUM FERRIC GLUCONAT/SUCROSE 125 MG in NS 100 ML IV SCH (17:54)
[2017-12-31] MEDS: DIPHENHYDRAMINE CREAM TP PRN ×2 (18:00→23:27)
[2017-12-31] MEDS: PANTOPRAZOLE SODIUM 40 MG TAB PO SCH (20:34)
[2018-01-01] MEDS: IPRATROPIUM/ALBUTEROL 3 ML DEYVIAL IH SCH ×4 (05:05→21:00)
[2018-01-01 05:11] LABS: PLATELET COUNT 320 10^3/uL (150-400)
[2018-01-01] MEDS: DIPHENHYDRAMINE CREAM TP PRN ×3 (07:40→20:41)
--- NOTE | 2018-01-01 08:16 | HOSPPROG ---
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 Cont nebs and steroids -Appreciate Dr. Tan's consultation #Scabies: s/p treatment #Iron deficiency anemia: IV iron. FOBT pending. H/H stable after 1 unit. May warrant endoscopy if drops again #Etoh dependence: counseled on cessation #Mental disorder: previously at [facility]. Has been off meds >2 years. Offered to have them evaluate, but he declined #Homelessness: CM involved #Diet: regular Inpatient admission for Nebs, Pulm consultation Subjective: "winded" after walking to bathroom Objective: Vital Signs Temp Pulse Resp BP Pulse Ox 37.1 C 86 16 158/90 H 2 L 01/01/18 07:28 01/01/18 07:28 01/01/18 07:28 01/01/18 07:28 01/01/18 07:28 Laboratory Results 01/01/18 04:35 12/31/17 01/01/18 01/02/18 05:59 05:59 05:59 Intake Total 550 Output Total 300 Balance 250 - Time Spent With Patient Time Spent with Patient: greater than 35 minutes Time Spent with Patient: Greater than 35 minutes spent on this patients care, greater than 50% of time spent counseling, educating, and coordinating care regarding the above mentioned plan. - Physical Exam Constitutional: unkempt Eyes: PERRL Ears, Nose, Mouth, Throat: poor dentition Cardiovascular: regular rate and rhythym Respiratory: reduced air movement, expiratory wheeze Gastrointestinal: normoactive bowel sounds Genitourinary: no bladder fullness Skin: other (multiple scabbed bites over extremities) Musculoskeletal: full muscle strength Neurologic: AAOx3, CN II-XII Intact Psychiatric: interacting appropriately, flat affect ICD10 Worksheet Patient Problems: Problems Problem Status Onset Hypoxia Acute Pneumonia Acute Scabies Acute Alcohol intoxication Acute Altered mental status Acute Confusion Acute Encephalopathy Acute History of acute alcohol intoxication Acute Hyponatremia Acute Hyponatremia Acute Laceration of intraoral surface of lip Acute Osteomyelitis of foot, right, acute Acute
[2018-01-01] MEDS: SODIUM FERRIC GLUCONAT/SUCROSE 125 MG in NS 100 ML IV SCH (08:19)
[2018-01-01] MEDS: MULTIVITAMINS 1 EACH TAB PO SCH (08:19)
[2018-01-01] MEDS: AZITHROMYCIN 250 MG TAB PO SCH (08:19)
[2018-01-01] MEDS: PANTOPRAZOLE SODIUM 40 MG TAB PO SCH ×2 (08:20→20:39)
[2018-01-01] MEDS: FOLIC ACID 1 MG TAB PO SCH (08:20)
[2018-01-01] MEDS: predniSONE 20 MG TAB PO SCH (08:20)
[2018-01-01] MEDS: THIAMINE HCL 100 MG TAB PO SCH (08:20)
--- NOTE | 2018-01-01 08:42 | PDMN ---
Medical Necessity Medical necessity: Change to IP, as of 12/31/17, per MD; los >2 mn for ongoing management of acute hypoxemic respiratory failure w/asthma exacerbation, interstitial pulmonary infiltrates, significant eosinophilia, new onset severe anemia & acute scabies; requiring further workup/monitoring, Pulmonology consult , PRBC transfusion w/iron therapy, IV abx, respiratory supportive care & CIWA protocol; hx alcoholism, COPD & homelessness
--- NOTE | 2018-01-01 14:43 | ASMTCMCOM ---
CM Note CM Note Notes: CM met with Pt. Pt is chronically homeless and is not interested in following the rules necessary to be able to sleep at the [facility] year round. He is unclear as to whether he would like a bed for the day he is d/c'ed. he does have a court hearing; he is unclear if he missed it or if it's coming up. he receives btwn 200 and 300 a month from his mother's trust. He spoke of needing new glasses and knowing how to pursue them once he's d/c'ed. CM to follow. D/C Plan: Anticipate streets, maybe nursing home bed. Date Signed: 01/01/2018 02:42 PM Electronically Signed By:Ifrah Lowery
[2018-01-02] MEDS: IPRATROPIUM/ALBUTEROL 3 ML DEYVIAL IH SCH ×4 (05:08→21:47)
[2018-01-02 05:41] LABS: PLATELET COUNT 268 10^3/uL (150-400)
--- NOTE | 2018-01-02 06:27 | GCON ---
PULMONARY CONSULTATION DATE OF CONSULTATION: 01/01/2018 REASON FOR CONSULTATION: Asthma, pulmonary infiltrates. HISTORY: The patient is a 57-year-old gentleman who was admitted to the hospital 2 days ago secondar y to increasing shortness of breath. He presented to the emergency department secondary to his sympt oms. He was found to be hypoxic and wheezing. He was treated with albuterol by nebulizer with impro vement and started on steroids. Antibiotics for a community-acquired pneumonia were given and his est x-ray came back as showing bilateral pulmonary infiltrates consistent with possible pneumonia. A respiratory panel, however, was negative. The patient is homeless. He does have a history of alcohol abuse, as well as asthma. He tells me th at his history of asthma dates back about 2 years? He does smoke cigarettes on a daily basis, at [address] 1/4 pack per day, more when he can. He also drinks significant amounts of vodka daily, at least h misael a liter, by his report. There is a history of alcohol withdrawal in the past. He denies reflux or aspiration. He denies recent loss of consciousness. He does smoke pot generally by rolled materi al and inhales this deeply into his lungs. He does not feel he has gotten any bad pot recently. He denies inhalation of other drugs or substances. He denies vomiting or aspiration. He lives on the [facility]. There have been no unusual exposures that he is aware of. PAST MEDICAL HISTORY: Remarkable for chronic alcohol abuse, homelessness, tobacco abuse, asthma, and possibly COPD. DRUG ALLERGIES: Codeine and penicillin preparations. SOCIAL HISTORY: As outlined above. Alcohol and tobacco are positive. He lives on the streets. FAMILY HISTORY: Noncontributory. REVIEW OF SYSTEMS: No history of heart disease that he is aware of. No chest pain or palpitations. No nausea, vomiting, recent loss of consciousness. He does have a history of possible reflux. MEDICATIONS: Outpatient medications recently prescribed have included albuterol, Qvar, Cogentin, ome prazole, Trilafon, and ibuprofen as well as Flomax. PHYSICAL EXAMINATION: GENERAL: Reveals a pleasant gentleman who is pleasant and cooperative. He is in isolation for scabies. VITAL SIGNS: Blood pressure is approximately 150/80, heart rate 90 and r egular, respiratory rate is 16. On 2 L saturations are 93%. He is afebrile. HEENT: Unremarkable f or lymphadenopathy or thyromegaly. There is no jugular venous distention, no thrush. CHEST: Reveal s decreased breath sounds bilaterally with a few rales and some scattered wheezes. He is not tight, not using accessory muscles. There is no pleural rub. HEART: Regular in rate and rhythm. There is a soft systolic murmur, no gallop. ABDOMEN: Soft, nontender. Bowel sounds are present. EXTREMITI ES: Show trace plus edema. The skin has a number of small lesions, possibly consistent with scabies . NEUROLOGIC: Nonfocal. DATABASE: Chest x-ray shows bilateral pulmonary infiltrates. Initial study was on the . Today's study show bilateral alveolar/interstitial infiltrates. Small pleural effusions are likely present. Compared to the x-ray 2 days ago, there is slight improvement. Laboratories: [place] [address], hematocrit 26.8, platelets are 320,000. Eosinophils are normal at 1.5%. On admission, they were 25%. Sodium is 137, potassium 3.9. BUN and creatinine are normal. Calcium is 7, ferritin 17. BNP on admission was 2512. Troponin was negative. Procalci tonin was elevated at 0.11. ASSESSMENT: 1. Asthma, with exacerbation. 2. Possible chronic obstructive pulmonary disease secondary to ongoing tobacco abuse. 3. Pulmonary infiltrates. These would be atypical for asthma. A viral pneumonitis may be present. Respiratory panel, however, was unremarkable. An unusual presentation of a community-acquired pneum onia could not be excluded. Treatment with ceftriaxone and azithromycin is appropriate. Aspiration pneumonitis cannot be absolutely excluded, however, he denies known aspiration or loss of consciousne ss. Eosinophils were elevated on admission. An allergic pneumonitis is certainly possible, however, to what we do not know. Churg-Lewis cannot be excluded at this time. Other inflammatory etiologi es would need to be considered if evaluation for other causes is negative. RECOMMENDATIONS: Continued bronchodilator treatment and prednisone 40 mg a day will be maintained. Oxygen will be continued. A high-resolution CT scan of the chest will be obtained tomorrow. Broncho scopy and biopsies may be needed if significant infiltrates persist without a diagnosis. All of the above was discussed with the patient. /[id number]/MODL
[2018-01-02] MEDS: PANTOPRAZOLE SODIUM 40 MG TAB PO SCH ×2 (09:34→20:34)
[2018-01-02] MEDS: SODIUM FERRIC GLUCONAT/SUCROSE 125 MG in NS 100 ML IV SCH (09:34)
[2018-01-02] MEDS: predniSONE 20 MG TAB PO SCH (09:34)
[2018-01-02] MEDS: THIAMINE HCL 100 MG TAB PO SCH (09:34)
[2018-01-02] MEDS: MULTIVITAMINS 1 EACH TAB PO SCH (09:34)
[2018-01-02] MEDS: AZITHROMYCIN 250 MG TAB PO SCH (09:34)
[2018-01-02] MEDS: FOLIC ACID 1 MG TAB PO SCH (09:34)
[2018-01-02] MEDS: ACETAMINOPHEN 325 MG TAB PO PRN ×2 (14:59→20:34)
--- NOTE | 2018-01-02 15:24 | HOSPPROG ---
Hospitalist Progress Note Assessment/Plan: * COPD/asthma exacerbation -steroids, nebs * Pulmonary infiltrates - possible PNA -IV ceftriaxone + azithro -high res CT pending * Acute respiratory failure - improved -wean O2 * Eosinophilia -due to asthma vs eosinophilic pulmonary process vs. scabies * Scabies s/p treatment * Fe deficient anemia - recent melena -ferritin 17, s/p IV iron -empiric PPI -likely needs GI eval prior to discharge when respiratory status better * Tobacco dependence * Etoh abuse -minimal withdrawal noted * Lactate elevation - resolved -suspect due to dehydration * Bipolar vs. schizophrenia -clarify home meds Subjective: Better Objective: Vital Signs Temp Pulse Resp BP Pulse Ox 36.9 C 94 18 156/91 H 92 01/02/18 12:00 01/02/18 12:00 01/02/18 12:00 01/02/18 12:00 01/02/18 12:00 Microbiology 01/01/18 17:00 - Final Sputum, Expectorated Laboratory Results 01/02/18 04:40 01/02/18 04:40 01/01/18 01/02/18 01/03/18 05:59 05:59 05:59 Intake Total 550 150 Output Total 300 150 Balance 250 0 CXR viewed, my personal interpretation is - bilateral infiltrates old chart reviewed - psych history detailed - Physical Exam Constitutional: no apparent distress, appears nourished, not in pain Cardiovascular: regular rate and rhythym, no murmur, rub, or gallop Respiratory: no respiratory distress, expiratory wheeze, inspiratory crackles, rhonchi Gastrointestinal: normoactive bowel sounds, soft, non-tender abdomen, no palpable masses Skin: no rashes or abrasions, no fluctuance, no induration Neurologic: AAOx3, sensation intact bilaterally Psychiatric: interacting appropriately, not anxious, not encephalopathic, thought process linear ICD10 Worksheet Patient Problems: Problems Problem Status Onset Hypoxia Acute Pneumonia Acute Scabies Acute Alcohol intoxication Acute Altered mental status Acute Confusion Acute Encephalopathy Acute History of acute alcohol intoxication Acute Hyponatremia Acute Hyponatremia Acute Laceration of intraoral surface of lip Acute Osteomyelitis of foot, right, acute Acute
--- NOTE | 2018-01-02 18:33 | SOAPPROG ---
SOAP Progress Note Assessment/Plan: Assessment: Asthma exacerbation. Improving. Not tight. Wheezing has improved. Hypoxemia resolving Pulmonary infiltrates. Atypical: in upper lung fuentes primarily. I suspect this does represent pneumonia, possibly aspiration. He is now starting to bring up dark mucus. He does have associated pleural effusions bilaterally. These may be cardiogenic in part as BNP is elevated, query parapneumonic verses other inflammatory causes. Eosinophilia. Present on admission. Has resolved with steroids. Scabies: Status post treatment. Plan: Continue antibiotics. Continue bronchopulmonary therapies. Recheck BNP in the a.m.. Cardiac echo tomorrow. Will increase prednisone to 60. Diagnostic thoracentesis to be ordered tomorrow. . Subjective: Feels better, less short of breath. Denies significant wheezing. He is coughing more and bringing up dark mucus. He now tells me that he may have drunk enough alcohol to pass out a night or 2 prior to coming in here. Objective: Vital Signs Temp Pulse Resp BP Pulse Ox 36.9 C 96 16 171/103 H 92 01/02/18 15:24 01/02/18 16:15 01/02/18 16:15 01/02/18 15:24 01/02/18 16:15 Microbiology 01/01/18 17:00 - Final Sputum, Expectorated Laboratory Results 01/02/18 04:40 01/02/18 04:40 01/01/18 01/02/18 01/03/18 05:59 05:59 05:59 Intake Total 550 150 Output Total 300 [address] chest: Alveolar infiltrates present primarily in the upper lung fuentes, sparing the bases. Bilateral pleural effusions present, right greater than left Physical Exam - Physical Exam General Appearance: alert, no apparent distress, other (Lying comfortably in bed , not dyspneic. Watching baseball) EENT: PERRL/EOMI, other (Nasal cannula in place at 2 L. 88% on room air) Neck: normal inspection (No JVD) Respiratory: lungs clear, decreased breath sounds, rales (Few scattered rales), rhonchi (Few rhonchi with cough), wheezing (Few expiratory wheezes present), prolonged expiration, No respiratory distress Cardiac/Chest: regular rate, rhythm, No gallop Abdomen: normal bowel sounds, non-tender, soft Skin: normal color, warm/dry Extremities: pedal edema (Trace +) Neuro/Psych: no motor/sensory deficits, No cognition abnormalities ICD10 Worksheet Patient Problems: Problems Problem Status Onset History of acute alcohol intoxication Acute Osteomyelitis of foot, right, acute Acute Alcohol intoxication Acute Altered mental status Acute Hyponatremia Acute Laceration of intraoral surface of lip Acute Hyponatremia Acute Confusion Acute Encephalopathy Acute Scabies Acute Pneumonia Acute Hypoxia Acute
[2018-01-02] MEDS: DIPHENHYDRAMINE CREAM TP PRN (20:39)
[2018-01-03] MEDS: IPRATROPIUM/ALBUTEROL 3 ML DEYVIAL IH SCH ×4 (05:39→21:39)
[2018-01-03] MEDS: predniSONE 20 MG TAB PO SCH (09:22)
[2018-01-03] MEDS: PANTOPRAZOLE SODIUM 40 MG TAB PO SCH ×2 (09:22→21:11)
[2018-01-03] MEDS: AZITHROMYCIN 250 MG TAB PO SCH (09:23)
[2018-01-03] MEDS: MULTIVITAMINS 1 EACH TAB PO SCH (09:23)
[2018-01-03] MEDS: FOLIC ACID 1 MG TAB PO SCH (09:23)
[2018-01-03] MEDS: THIAMINE HCL 100 MG TAB PO SCH (09:23)
--- NOTE | 2018-01-03 11:27 | HOSPPROG ---
Hospitalist Progress Note Assessment/Plan: * COPD/asthma exacerbation -steroids, nebs * Pulmonary infiltrates - suspect aspiration PNA -IV ceftriaxone + azithro -add Flagyl -empiric IV lasix x 1 * Acute respiratory failure - improved -wean O2 * IgE > 5000 -unclear significance - d/w Dr. Tan * Eosinophilia -due to asthma vs eosinophilic pulmonary process vs. scabies * Scabies s/p treatment * Fe deficient anemia - recent melena -ferritin 17, s/p IV iron -empiric PPI -likely needs GI eval prior to discharge when respiratory status better * Tobacco dependence * Etoh abuse -minimal withdrawal noted * Lactate elevation - resolved -suspect due to dehydration * Bipolar vs. schizophrenia -clarify home meds Subjective: Still very SOB Objective: Vital Signs Temp Pulse Resp BP Pulse Ox 36.8 C 96 16 153/93 H 90 L 01/03/18 08:00 01/03/18 08:00 01/03/18 08:00 01/03/18 08:00 01/03/18 08:00 Microbiology 01/01/18 17:00 - Final Sputum, Expectorated Laboratory Results 01/02/18 04:40 01/02/18 04:40 01/02/18 01/03/18 01/04/18 05:59 05:59 05:59 Intake Total 150 150 Output Total 150 425 Balance 0 -275 CT chest - infiltrates not c/w CHF - Physical Exam Constitutional: no apparent distress, appears nourished, not in pain Cardiovascular: regular rate and rhythym, no murmur, rub, or gallop Respiratory: expiratory wheeze, inspiratory crackles, respiratory distress Gastrointestinal: normoactive bowel sounds, soft, non-tender abdomen, no palpable masses Skin: abrasion, erythema, other (old scabies) Neurologic: AAOx3, sensation intact bilaterally ICD10 Worksheet Patient Problems: Problems Problem Status Onset Hypoxia Acute Pneumonia Acute Scabies Acute Alcohol intoxication Acute Altered mental status Acute Confusion Acute Encephalopathy Acute History of acute alcohol intoxication Acute Hyponatremia Acute Hyponatremia Acute Laceration of intraoral surface of lip Acute Osteomyelitis of foot, right, acute Acute
[2018-01-03] MEDS ORDERED: FUROSEMIDE 40 MG/4 ML VIAL IVP ONE (11:28)
--- NOTE | 2018-01-03 12:09 | ECHO ---
[email or web address] [address] Main: [phone] Fax: [email or web address] Echocardiogram Name: SUZANNE HAGER MR#: [id number] Study Date: 01/03/2018 Study Time: 10:33 AM Date of : 1960 Age: 57 year(s) Height: 175.3 cm (69 in.) Weight: 81.65 kg (180 lb.) BSA: 1.98 m2 Gender: Male Examination: Echo Indication: pleural effusions, elevated BNP Image Quality: Adequate Contrast: Requested by: Ap Tan BP: 153 mmHg/93 mmHg Heart Rate: Rhythm: Indication: pleural effusions, elevated BNP Procedure Staff Pricing Coordinator: Destiney Camargo RDCS Reading Physician: Greg Bennett MD Requesting Provider: Conclusions: Normal size left ventricle. Normal global systolic LV function. EF is 60 %. No regional wall motion abnormality. Normal diastolic LV function. Mild mitral valve regurgitation is present. Mild tricuspid regurgitation is present. The pulmonary artery pressure is mild to moderately increased. Right ventricular systolic pressure measures 48mmHg. Trivial anterior pericardial effusion. There is a pleural effusion present. Measurements: Chambers Valvular Assessment AV/MV Valvular Assessment TV/PV Normal Normal Normal Name Value Range Name Value Range Name Value Range Ao Rebeka (2D): 2.9 cm (1.4 cm-2.6 AV Vmax: 1.79 m/s (1 m/s-1.7 TR Vmax: 3.26 mm/s ( - ) cm) m/s) TR PGmax: 43 mmHg ( - ) IVSd (2D): 0.9 cm (0.6 cm-1.1 AV maxP mmHg ( - ) syst. PAP: 48 mmHg ( - ) cm) AV meanP mmHg ( - ) PV Vmax: 1.06 m/s (0.6 m/s-0.9 LVDd (2D): 4.6 cm (4.2 cm-5.9 MARILIA (VTI): 2.8 cm ( - ) m/s) cm) MV E Vmax: 1.10 m/s ( - ) PV PGmax: 4 mmHg ( - ) LVDs (2D): 3.1 cm (2.1 cm-4 MV A Vmax: 0.91 m/s ( - ) cm) MV E/A: 1.21 ( - ) LVPWd (2D): 0.8 cm (0.6 cm-1 cm) MV PHT: 0.053 s ( - ) LVOTd 2.2 cm 2.2 cm mm MVA (PHT): 4.2 s ( - ) LVEF (BP): 60 % (>=55 %) RVDd(2D): 3.2 cm (1.9 cm-3.8 cmmm) Patient: SUZANNE HAGER Study Date: 01/03/2018 Page 1 of 2 10:33 AM Continued Measurements: Chambers Valvular Assessment AV/MV Valvular Assessment TV/PV Name Value Name Value Name Value LADs: 4.1 cm MV DecTime: 180 m/s CVP (est.): 5 mmHg LADs Lon.4 cm MV E' Septal: 0.08 m/s LA Area: 18.7 cm2 MV E/E' Septal: 13.00 LA Volume: 58 ml MV E/E' Lateral: 10.00 LA Volume Index: 29.3 ml/m2 RA Area: 17.5 cm2 Additional Vessels Name Value Ao Ascendin.4 cm Inferior Vena Cava: 1.8 cm Findings: Left Ventricle: Normal size left ventricle. No LV hypertrophy. Normal global systolic LV function. EF is 60 %. No regional wall motion abnormality. Normal diastolic LV function. Right Ventricle: Normal size right ventricle. Normal RV function. Left Atrium: The left atrium is normal in size. Right Atrium: The right atrium is normal in size. Mitral Valve: The mitral valve is normal in appearance and function. Mild mitral valve regurgitation is present. No mitral stenosis is present. Aortic Valve: The aortic valve is tri-leaflet. There is no significant aortic valve regurgitation. No aortic valve stenosis is present. Tricuspid Valve: The tricuspid valve is normal in appearance and function. Mild tricuspid regurgitation is present. The pulmonary artery pressure is mild to moderately increased. Right ventricular systolic pressure measures 48mmHg. Pulmonic Valve: The pulmonic valve is normal in appearance and function. There is no pulmonic regurgitation seen. Aorta: The aorta is normal. Normal size aortic root measuring 2.9 cm. Normal size ascending aorta measuring 3.4 cm. IVC: The IVC is normal sized. Pericardium: Trivial anterior pericardial effusion. There is a pleural effusion present. (No Signature Object) Patient: SUZANNE HAGER Study Date: 01/03/2018 Page 2 of 2 10:33 AM [id number]
--- NOTE | 2018-01-03 12:34 | ASMTCMCOM ---
CM Note CM Note Notes: Pt is a homeless gentleman who continues to be short of breath, he was treated for scabies on admission. Pt will dc to street or care home, he is unsure that he wants a care home bed. CM w/f up at dc. See CC note DC plan: Care Home vs Street Date Signed: 01/03/2018 12:34 PM Electronically Signed By:Annmarie Rosenbaum RN
[2018-01-03] MEDS: metroNIDAZOLE 500 MG TAB PO SCH ×2 (13:37→21:11)
[2018-01-03] MEDS: ACETAMINOPHEN 325 MG TAB PO PRN (13:41)
--- NOTE | 2018-01-03 14:44 | SOAPPROG ---
SOAP Progress Note Assessment/Plan: Assessment: Asthma exacerbation. Improved. Not tight. Wheezing essentially resolved. Hypoxemia improved. Pulmonary infiltrates. Atypical: in upper lung fuentes primarily. I suspect this may represent pneumonia, possibly aspiration. He has had some dark mucus. He does have associated pleural effusions bilaterally: query parapneumonic verses other inflammatory causes. No evidence of empyema. Doubt congestive heart failure at this point. Left ventricular ejection fraction normal. Some diastolic dysfunction with secondary elevated right heart pressures approximately 40. Churg-Lewis certainly is a possibility. This can be associated with eosinophilia, asthma, pulmonary infiltrates and elevated IgE levels. Pleural effusions can also be seen. On appropriate therapy for this: Prednisone at 60. May need lung biopsy if infiltrates persist. Eosinophilia. Present on admission. Has resolved with steroids. Elevated IgE: Value quite high, greater than 5000. Pleural effusions: Radiologist unavailable to do a thoracentesis today. No indication to call IR in for this. I will check to see if endoscopy is still here. If so, I could tapped in Endo Scabies: Status post treatment. Plan: Continue antibiotics. Continue bronchopulmonary therapies. Continue prednisone to 60. Will look at options for diagnostic thoracentesis, however this is not emergent and on examination this appears to be resolving. For repeat chest x-ray with decubitus films in the morning. Subjective: Doing well. No complaints. Feels better. Denies significant shortness of breath. No further wheezing. No chest pain. Up watching football. Objective: Vital Signs Temp Pulse Resp BP Pulse Ox 36.9 C 94 20 148/82 H 89 L 01/03/18 12:00 01/03/18 12:28 01/03/18 12:28 01/03/18 12:00 01/03/18 12:28 Microbiology 01/01/18 17:00 - Final Sputum, Expectorated Laboratory Results 01/02/18 04:40 01/02/18 04:40 01/02/18 01/03/18 01/04/18 05:59 05:59 05:59 Intake Total 150 150 Output Total 150 425 500 Balance 0 -275 -500 Laboratory Tests 01/02/18 04:40 IgE > 5000.0 H Physical Exam - Physical Exam General Appearance: alert, no apparent distress EENT: other (O2 in place at 2 L) Neck: normal inspection (No JVD) Respiratory: decreased breath sounds, rales (Minimal scattered rales posteriorly ), wheezing (Wheezing almost resolved), prolonged expiration, other (Fairly good breath sounds at the bases. No obvious dullness.), No rhonchi Cardiac/Chest: regular rate, rhythm Abdomen: normal bowel sounds, non-tender, soft Extremities: pedal edema (Trace +), other (Amputated toes on the right secondary to frostbite) Neuro/Psych: no motor/sensory deficits, No cognition abnormalities ICD10 Worksheet Patient Problems: Problems Problem Status Onset History of acute alcohol intoxication Acute Osteomyelitis of foot, right, acute Acute Alcohol intoxication Acute Altered mental status Acute Hyponatremia Acute Laceration of intraoral surface of lip Acute Hyponatremia Acute Confusion Acute Encephalopathy Acute Scabies Acute Pneumonia Acute Hypoxia Acute
[2018-01-04] MEDS: IPRATROPIUM/ALBUTEROL 3 ML DEYVIAL IH SCH ×4 (03:44→20:52)
[2018-01-04] MEDS: metroNIDAZOLE 500 MG TAB PO SCH ×3 (05:36→21:11)
[2018-01-04 05:42] LABS: PLATELET COUNT 293 10^3/uL (150-400)
[2018-01-04] MEDS: AZITHROMYCIN 250 MG TAB PO SCH (08:55)
[2018-01-04] MEDS: MULTIVITAMINS 1 EACH TAB PO SCH (08:56)
[2018-01-04] MEDS: THIAMINE HCL 100 MG TAB PO SCH (08:56)
[2018-01-04] MEDS: FOLIC ACID 1 MG TAB PO SCH (08:57)
[2018-01-04] MEDS: predniSONE 20 MG TAB PO SCH (08:57)
[2018-01-04] MEDS: PANTOPRAZOLE SODIUM 40 MG TAB PO SCH ×2 (08:57→21:10)
[2018-01-04] MEDS: FERROUS SULFATE 325 MG TAB PO SCH ×2 (09:09→21:10)
[2018-01-04] MEDS ORDERED: PEG 3350/NA SULF,BICARB,CL/KCL (GAVILYTE-G) 4000 ML BTL PO ONE ×2 (09:42→16:30)
--- NOTE | 2018-01-04 10:47 | ASMTCMCOM ---
CM Note CM Note Notes: CM spoke with RN, patient likely to stay tonight and to plan is to have colonoscopy tomorrow. CM to follow. Date Signed: 01/04/2018 10:46 AM Electronically Signed By:Rosaura Real
--- NOTE | 2018-01-04 13:14 | GCON ---
GASTROENTEROLOGY CONSULTATION DATE OF CONSULTATION: 01/04/2018 REFERRING PHYSICIAN: Jerica Goodwin MD REASON FOR CONSULTATION: Iron deficiency anemia. HISTORY OF PRESENT ILLNESS: Christian is a 57-year-old gentleman who was admitted to [facility] with complaints of shortness of breath. He is a heavy smoker with COPD, as well as has chronic alcohol abuse, and is homeless. He had been complaining of a productive cough of white sputum and subjective fevers as well as a mild sore throat. He was noted to be wheezing and hypoxic with respiratory distress on admission, which responded somewhat to nebulizer therapy. He was admitted to the hospital for further treatment. He was noted on admission to be iron deficient with a ferritin of 17.0, hemoglobin of 8.2, hematocrit 26.7, MCV of 30.1, MCHC of 30.7, and RDW elevated at 18.4. The patient denies any history of peptic ulcer disease. He has no history of colonoscopy or EGD. He states his father had colon cancer in his 80s. During this hospital course, the patient has been treated with albuterol inhaler , omeprazole 20 mg daily, supplemental O2, prednisone, DuoNebs, and broad- spectrum antibiotic therapy. He has had no overt signs of GI bleed during this admission. His pulmonary status has improved to the point where his hospitalist feels that he would be medically cleared for endoscopic evaluation to rule out a source of chronic iron deficiency anemia from blood loss. He was briefly treated for scabies on admission and is in isolation for [facility]. MEDICATIONS: At present include albuterol inhaler q.2 hours p.r.n. shortness of breath, DuoNeb 3 mL neb q.i.d., azithromycin 250 mg p.o. daily, ceftriaxone 1 g IV daily, ferrous sulfate 325 mg p.o. twice daily, Rocephin 1 g IV daily, folate 1 mg p.o. daily, metronidazole 500 mg p.o. t.i.d., Protonix 40 mg p.o. b.i.d., prednisone 60 mg p.o. daily, vitamin B1 100 mg p.o. daily. ALLERGIES: He is allergic to penicillins and codeine. PAST MEDICAL HISTORY: Significant for COPD, GERD, history of alcohol abuse, history of MRSA, history of transient hyponatremia. PAST SURGICAL HISTORY: Significant for left leg surgery in the past. FAMILY HISTORY: Positive for colon cancer in his father in his late 80s and atherosclerotic coronary vascular disease in the same, as well as history of alcoholism in the family. SOCIAL HISTORY: He is a heavy smoker and consumes alcohol heavily. He is homeless. He has been in the [facility] at [facility] for the last several months until recently. REVIEW OF SYSTEMS: Other than complaints of shortness of breath and fatigue were negative for comprehensive review of systems. PHYSICAL EXAMINATION: VITAL SIGNS: Temperature was 36.8 Celsius, pulse was 102 regular, blood pressure 155/79, respiratory rate was 20, O2 saturation 92% on 3 L per nasal cannula. GENERAL: A well-developed, well-nourished male, lying in bed, in no apparent distress. INTEGUMENT: Clear. HEENT: Head atraumatic, normocephalic. Pupils equal, round and reactive to light. EOM was intact. Sclerae nonicteric. Nares patent. Mucous membranes moist. Dentition fair. NECK: Supple. Trachea was midline. LYMPHATICS: No palpable cervical or axillary adenopathy. PULMONARY: Lungs were clear to percussion and auscultation with the exception of occasional end-expiratory wheezes. CARDIOVASCULAR: Regular rhythm and rate, normal S1, S2 without murmur. Peripheral pulses slightly decreased bilaterally. No pedal edema. GASTROINTESTINAL: Abdomen supple, positive bowel sounds. No liver, spleen tip palpable. No masses or tenderness noted. No fluid wave noted. EXTREMITIES: Without deformity. NEURO: The patient were alert, oriented x3. There are no focal neurologic deficits. LABS: Hemoglobin 8.2, hematocrit 26.7, MCV 30.1, MCHC 30.7, RDW 18.4, white count 10.44, platelets 293,000. Electrolytes normal. BUN 21, creatinine 0.8, glucose 102, calcium 8.4, ferritin low at 17.0, total bilirubin 0.4, AST 45, ALT 41, ALP 130. Troponin I 0.01. Albumin 2.8. Prolactin 0.11. Ethyl alcohol admission level 10. Stool was Hemoccult negative. Chest CT on 2017, showed airspace consolidation involving the upper lung zones, large right and moderate left layering pleural effusions and mild reactive lymphadenopathy throughout the mediastinum. IMPRESSION: 1. Iron deficiency anemia without clinical history of dyspepsia, nausea, vomiting, or change in bowel habits or blood in stool to suggest acute gastrointestinal bleed, rule out peptic ulcer disease. Rule out colon cancer, less likely arteriovenous malformations of the small bowel or colon. 2. Chronic alcohol abuse, presently not exhibiting withdrawal symptoms. 3. Chronic obstructive pulmonary disease with a recent exacerbation and probable pneumonia. RECOMMENDATIONS: 1. Clear liquid diet. 2. Colyte prep today. 3. Total colonoscopy and esophagogastroduodenoscopy in the a.m. with propofol anesthesia due to the patient's underlying pulmonary disease and chronic alcoholism. /[id number]/MODL MTDD
--- NOTE | 2018-01-04 16:14 | HOSPPROG ---
Hospitalist Progress Note Assessment/Plan: * COPD/asthma exacerbation -steroids, nebs * Pulmonary infiltrates - aspiration PNA vs. other -IV ceftriaxone + azithro + Flagyl * Acute respiratory failure - still extreme SOB with any exertion * IgE > 5000 -extreme elevation concerning -rule out Churg-Lewis vs. ABPA vs eosinophilic PNA -d/w Dr. Ruiz - this elevation is NOT from scabies * Eosinophilia (25% pre steroid treatment) -due to asthma vs eosinophilic pulmonary process vs. scabies * Possible Churg Lewis -send vasculitis work-up -consider lung biopsy * Scabies s/p treatment * Fe deficient anemia - recent melena -ferritin 17, s/p IV iron -empiric PPI -GI consulted - d/w Dr. Rahman -EGD/colonoscopy in am * Tobacco dependence * Etoh abuse -minimal withdrawal noted * Lactate elevation - resolved -suspect due to dehydration * Bipolar vs. schizophrenia -clarify home meds * Pulmonary HTN by ECHO Subjective: Still severe SOB with exertion, okay at rest Objective: Vital Signs Temp Pulse Resp BP Pulse Ox 36.9 C 83 20 156/93 H 95 01/04/18 15:41 01/04/18 15:41 01/04/18 15:41 01/04/18 15:41 01/04/18 15:41 Microbiology 01/01/18 17:00 - Final Sputum, Expectorated Sputum Culture - Final Laboratory Results 01/04/18 04:30 01/04/18 04:30 01/03/18 01/04/18 01/05/18 05:59 05:59 05:59 Intake Total 150 1100 Output Total 425 500 500 Balance -275 600 -500 CXR viewed, my personal interpretation is - worsening infiltrates - Physical Exam Constitutional: no apparent distress, appears nourished, not in pain Cardiovascular: regular rate and rhythym, no murmur, rub, or gallop Respiratory: no respiratory distress, no rales or rhonchi, clear to auscultation Gastrointestinal: normoactive bowel sounds, soft, non-tender abdomen, no palpable masses Skin: warm, no fluctuance, no induration, abrasion, rash, other (healing scabies ), No mottled, No fluctuance Neurologic: AAOx3, sensation intact bilaterally Psychiatric: interacting appropriately, not anxious, not encephalopathic, thought process linear ICD10 Worksheet Patient Problems: Problems Problem Status Onset Hypoxia Acute Pneumonia Acute Scabies Acute Alcohol intoxication Acute Altered mental status Acute Confusion Acute Encephalopathy Acute History of acute alcohol intoxication Acute Hyponatremia Acute Hyponatremia Acute Laceration of intraoral surface of lip Acute Osteomyelitis of foot, right, acute Acute
--- NOTE | 2018-01-04 17:10 | SOAPPROG ---
SOAP Progress Note Assessment/Plan: Assessment: Asthma exacerbation. Improved. Not tight. Wheezing essentially resolved. Hypoxemia improved. Pulmonary infiltrates. Atypical: Bilateral, upper zones greater than lower. Persistent, etiology not clear. Differential include possible aspiration pneumonia and inflammatory lung disease, especially Churg-Lewis. He does have associated bilateral effusions. These appear to be smaller: query parapneumonic verses other inflammatory causes. No evidence of empyema. Doubt congestive heart failure as left ventricular ejection fraction normal. Some diastolic dysfunction with secondary elevated right heart pressures of approximately 40. Churg-Lewis can be associated with eosinophilia, asthma, pulmonary infiltrates and elevated IgE levels. Pleural effusions can also be seen. On appropriate therapy for this: Prednisone at 60. With persistence of infiltrates lung biopsy and BAL will likely be of benefit in providing a diagnosis. Clinically he looks and sounds significantly better than his x-ray would suggest. Eosinophilia. Present on admission. Has resolved with steroids. Elevated IgE: Value quite high, greater than 5000. Possibly allergic or secondary to Churg-Lewis. Anemia: Workup in progress Scabies: Status post treatment. Plan: Continue present antibiotics. Continue bronchopulmonary therapies. Continue prednisone to 60. Continue oxygen as needed. Continue to mobilize/ ambulate. For EGD tomorrow. Bronchoscopy with biopsies lavage will likely be needed. Not emergent as clinically he is doing well. Probably Friday in light of GI procedures tomorrow. Further serology to be obtained. Discussed directly with the patient and with Dr Goodwin Subjective: Denies shortness of breath. Up walking in the halls without oxygen. No cough or discomfort. Objective: Vital Signs Temp Pulse Resp BP Pulse Ox 36.9 C 83 20 156/93 H 95 01/04/18 15:41 01/04/18 15:41 01/04/18 15:41 01/04/18 15:41 01/04/18 15:41 Microbiology 01/01/18 17:00 - Final Sputum, Expectorated Sputum Culture - Final Laboratory Results 01/04/18 04:30 01/04/18 04:30 01/03/18 01/04/18 01/05/18 05:59 05:59 05:59 Intake Total 150 1100 Output Total 425 500 600 Balance -275 600 -600 Chest x-ray: Bilateral diffuse pulmonary infiltrates persist, perhaps slightly worse? Lateral decubitus films show only very small effusions. Physical Exam - Physical Exam General Appearance: alert, no apparent distress, other (Room air sats 89% after walking) EENT: PERRL/EOMI, other (Nasal cannula oxygen in place) Neck: normal inspection (No JVD) Respiratory: decreased breath sounds, rales (Rare scattered rales), prolonged expiration, No normal breath sounds, No rhonchi, No wheezing (Wheezing essentially resolved) Cardiac/Chest: regular rate, rhythm, No gallop Abdomen: normal bowel sounds, non-tender, soft Skin: warm/dry, pallor, rash (Multiple old lesion secondary to scabies.) Extremities: pedal edema, other (Missing toes right foot) Neuro/Psych: no motor/sensory deficits, No cognition abnormalities ICD10 Worksheet Patient Problems: Problems Problem Status Onset History of acute alcohol intoxication Acute Osteomyelitis of foot, right, acute Acute Alcohol intoxication Acute Altered mental status Acute Hyponatremia Acute Laceration of intraoral surface of lip Acute Hyponatremia Acute Confusion Acute Encephalopathy Acute Scabies Acute Pneumonia Acute Hypoxia Acute
--- NOTE | 2018-01-04 18:58 | CPEKG ---
Test Reason : OPEN Blood Pressure : / mmHG Vent. Rate : 086 BPM Atrial Rate : 087 BPM P-R Int : 138 ms QRS Dur : 086 ms QT Int : 369 ms P-R-T Axes : 043 082 061 degrees QTc Int : 442 ms Sinus tachycardia Paired ventricular premature complexes Confirmed by Ariana Lozano ([id number]) on 01/04/2018 6:57:58 PM Referred By: Confirmed By:Ariana Lozano
[2018-01-05] MEDS: IPRATROPIUM/ALBUTEROL 3 ML DEYVIAL IH SCH ×4 (04:54→21:42)
[2018-01-05] MEDS: metroNIDAZOLE 500 MG TAB PO SCH ×3 (06:07→20:26)
[2018-01-05 07:12] LABS: HIV TYPE 1 AND 2 NEGATIVE (NEGATIVE)
[2018-01-05] MEDS ORDERED: LR 1,000 ML IV ONE (08:33)
--- NOTE | 2018-01-05 09:22 | PDANEPAE ---
ANE History of Present Illness EGD colonoscopy ANE Past Medical History - Cardiovascular History Hx Hypertension: No Hx Arrhythmias: No Hx Chest Pain: No Hx Coronary Artery / Peripheral Vascular Disease: No Hx Palpitations: No - Pulmonary History Hx COPD: Yes Hx Asthma/Reactive Airway Disease: Yes Hx Recent Upper Respiratory Infection: No Hx Oxygen in Use at Home: No Hx Sleep Apnea: No Sleep Apnea Screening Result - Last Documented: Positive - Endocrine History Hx Diabetes: No Hypothyroid: No Hyperthyroid: No Obesity: no - Chronic Pain History Chronic Pain: No ANE Review of Systems Review of Systems: - Exercise capacity METS (RN): 3 METS ANE Patient History - Allergies Allergies/Adverse Reactions: codeine [Codeine] Allergy (Verified 10/13/17 19:22) Penicillins Allergy (Verified 10/13/17 19:22) - Home Medications Home medications: home medication list seen and reviewed Home Medications: Albuterol [Proventil Inhaler HFA (*)] 1 puffs IH QID PRN 09/12/16 [Last Taken 3 Months Ago ~09/30/17] Beclomethasone Qvar 80 [Qvar 80] 1 puffs IH BID 09/12/16 [Last Taken 3 Months Ago ~09/30/17] Benztropine Mesylate [Cogentin] 1 mg PO BID 09/12/16 [Last Taken 3 Months Ago ~ 09/30/17] Ibuprofen [Motrin (*)] 800 mg PO BID PRN 09/12/16 [Last Taken 3 Months Ago ~06/15] Omeprazole [Prilosec 20 mg] 20 mg PO DAILY 09/12/16 [Last Taken 3 Months Ago ~] Perphenazine [Trilafon 16mg (*)] 16 mg PO HS 09/12/16 [Last Taken 3 Months Ago ~ 09/30/17] Psyllium Husk (with Sugar) [Metamucil Packet] 1 each PO DAILY 09/12/16 [Last Taken 3 Months Ago ~09/30/17] Tamsulosin HCl [Flomax 0.4 MG (*)] 0.4 mg PO DAILY 09/12/16 [Last Taken 3 Months Ago ~09/30/17] - NPO status NPO Status: no food or drink >8 hours NPO Since - Liquids (Date): 01/05/18 NPO Since - Liquids (Time): 00:00 NPO Since - Solids (Date): 01/04/18 NPO Since - Solids (Time): 14:00 - Smoking Hx Smoking Status: Heavy smoker - Alcohol Use Alcohol Use: Heavy ANE Labs/Vital Signs - Labs Result Diagrams: 01/05/18 04:35 01/04/18 04:30 - Vital Signs Blood Pressure: 153/91 Heart Rate: 86 Respiratory Rate: 20 O2 Sat (%): 90 Height: 175.26 cm Weight: 81.647 kg ANE Physical Exam - Airway Neck exam: FROM Mallampati Score: Class 2 Mouth exam: poor dentition - Pulmonary Pulmonary: reduced air movement, inspiratory crackles - Cardiovascular Cardiovascular: regular rate and rhythym, no murmur, rub, or gallop - ASA Status ASA Status: III (anemia) ANE Anesthesia Plan Anesthesia Plan: GA with mask Total IV Anesthesia: Yes
[2018-01-05] MEDS ORDERED: PROPOFOL/EMULSION 500 MG/50 ML BOTTLE IV ONE (09:26)
[2018-01-05] MEDS ORDERED: MIDAZOLAM 2 MG/2 ML VIAL ONE (09:27)
[2018-01-05] MEDS ORDERED: PROPOFOL 200 MG/20 ML VIAL ONE (10:05)
--- NOTE | 2018-01-05 10:26 | GIREPORT ---
On License Of [facility] Surgical Services - Endoscopy Department Patient Name: Christian Constantino Procedure Date: 01/05/2018 9:39 AM Patient Type: Inpatient Attending MD/ ER Physician: Ruben Rahman MD Procedure: Upper GI endoscopy Indications: Suspected upper gastrointestinal bleeding in patient with unexplained i nolvia deficiency anemia, Heartburn Providers: Ruben Rahman MD Medicines: Propofol per Anesthesia Complications: No immediate complications. Description of Procedure: After obtaining informed consent, the endoscope was passed under direct vision. Throughout the procedure, the patient's blood pressure, pulse, and oxygen saturations were monitored continuously. The was introduced thro ugh the mouth, and advanced to the third part of duodenum. The upper GI endoscopy was accomplished without difficulty. The patient tolerated th e procedure well. Findings: LA Grade B (one or more mucosal breaks greater than 5 mm, not extending between the tops of two mucosal folds) esophagitis with no bleeding was found. The entire examined stomach was normal. Biopsies were taken with a cold forceps for histology. The examined duodenum was normal. Estimated Blood Loss: Estimated blood loss: none. Post Op Diagnosis: - LA Grade B reflux esophagitis. - Normal stomach. Biopsied. - Normal examined duodenum. Recommendation: - Use Protonix (pantoprazole) 40 mg PO daily for 2 months. - Await pathology results. - Perform a colonoscopy today. Attending Participation: I personally performed the entire procedure. Ruben Rahman MD Ruben Rahman MD 01/05/2018 10:26:16 AM This report has been signed electronicallyRuben Rahman MD Number of Addenda: 0 Note Initiated On: 01/05/2018 9:39 AM [email or web address]
--- NOTE | 2018-01-05 10:29 | GIREPORT ---
[facility] Surgical Services - Endoscopy Department Patient Name: Christian Constantino Procedure Date: 01/05/2018 9:54 AM Patient Type: Inpatient Attending MD/ ER Physician: Ruben Rahman MD Procedure: Colonoscopy Indications: Unexplained iron deficiency anemia, Family history of colon cancer in a first-degree relative Providers: Ruben Rahman MD Medicines: Propofol per Anesthesia Complications: No immediate complications. Description of Procedure: After obtaining informed consent, the scope was passed under direct vis ion. Throughout the procedure, the patient's blood pressure, pulse, and oxyg en saturations were monitored continuously. The Colonoscope was introduced through the anus and advanced to the terminal ileum. The colonoscopy wa s performed without difficulty. The patient tolerated the procedure well. The quality of the bowel preparation was good. Findings: The terminal ileum appeared normal. The descending colon, transverse colon, ascending colon, cecum, appendi ceal orifice and ileocecal valve appeared normal. A 8 mm polyp was found in the sigmoid colon. The polyp was sessile. The polyp was removed with a cold snare. Resection and retrieval were compl ete. The rectum appeared normal. The perianal and digital rectal examinations were normal. Estimated Blood Loss: Estimated blood loss: none. Post Op Diagnosis: - The examined portion of the ileum was normal. - The descending colon, transverse colon, ascending colon, cecum, appendiceal orifice and ileocecal valve are normal. - One 8 mm polyp in the sigmoid colon, removed with a cold snare. Resec stacia and retrieved. - The rectum is normal. Recommendation: - Return patient to [facility] for [facility] care. - Advance diet as tolerated today. - Await pathology results. - Repeat colonoscopy in 5 years for surveillance. Attending Participation: I personally performed the entire procedure. Ruben Rahman MD Ruben Rahman MD 01/05/2018 10:28:51 AM This report has been signed electronicallyRuben Rahman MD Number of Addenda: 0 Note Initiated On: 01/05/2018 9:54 AM Total Procedure Duration Time 0 hours 20 minutes 55 seconds [email or web address]
[2018-01-05] MEDS ORDERED: NALOXONE HCL 0.4 MG/ML INJ IVP PRN (10:31)
[2018-01-05] MEDS ORDERED: DIAZEPAM 5 MG/ML 1 ML SYR IVP PRN (10:31)
[2018-01-05] MEDS ORDERED: fentaNYL 100 MCG/2 ML INJ IVP PRN (10:31)
[2018-01-05] MEDS ORDERED: ONDANSETRON 4 MG/2 ML VIAL IVP PRN (10:31)
[2018-01-05] MEDS: FOLIC ACID 1 MG TAB PO SCH (11:42)
[2018-01-05] MEDS: predniSONE 20 MG TAB PO SCH (11:42)
[2018-01-05] MEDS: PANTOPRAZOLE SODIUM 40 MG TAB PO SCH (11:42)
[2018-01-05] MEDS: FERROUS SULFATE 325 MG TAB PO SCH ×2 (11:42→20:26)
[2018-01-05] MEDS: CYANO/VITAMIN B12 1000 MCG/ML VIAL IM SCH (11:42)
[2018-01-05] MEDS: AZITHROMYCIN 250 MG TAB PO SCH (11:42)
[2018-01-05] MEDS: THIAMINE HCL 100 MG TAB PO SCH (11:42)
[2018-01-05] MEDS: MULTIVITAMINS 1 EACH TAB PO SCH (11:46)
--- NOTE | 2018-01-05 12:24 | POSTANESTH ---
Post Anesthetic Evaluation Cardiovascular Status: Similar to Pre-Op Cond Respiratory Status: Similar to Pre-op Cond. Level of Consciousness/Mental Status: Can Participate in Eval Pain Control: Adequate, Prn Tx Ordered Nausea/Vomiting Control: Adequate, Prn Tx Ordered Complications Possibly Related to Anesthesia: None Noted
--- NOTE | 2018-01-05 13:29 | ASMTCMCOM ---
CM Note CM Note Notes: Patient may have some resources to help with his health needs at D/C per patient's statement. Patient did have colonscopy today. CM will follow. Date Signed: 01/05/2018 01:28 PM Electronically Signed By:Dorcas Prieto LCSW
--- NOTE | 2018-01-05 16:04 | HOSPPROG ---
Hospitalist Progress Note Assessment/Plan: * COPD/asthma exacerbation -steroids, nebs * Pulmonary infiltrates - aspiration PNA vs. other -IV ceftriaxone + azithro + Flagyl * Acute respiratory failure - still extreme SOB with any exertion * IgE > 5000 -extreme elevation concerning -rule out Churg-Lewis vs. ABPA vs eosinophilic PNA -d/w Dr. Ruiz - this elevation is NOT from scabies * Eosinophilia (25% pre steroid treatment) -due to asthma vs eosinophilic pulmonary process vs. scabies * Possible Churg Lewis -send vasculitis work-up -consider lung biopsy * Scabies s/p treatment * Esophagitis due to GERD -PPI for 2 months * Fe deficient anemia -ferritin 17, s/p IV iron * B12 deficiency -start B12 * Tobacco dependence * Etoh abuse -minimal withdrawal noted * Lactate elevation - resolved -suspect due to dehydration * Bipolar vs. schizophrenia -clarify home meds * Pulmonary HTN by ECHO Subjective: no new complaints. Objective: Vital Signs Temp Pulse Resp BP Pulse Ox 36.9 C 100 16 137/85 H 89 L 01/05/18 16:00 01/05/18 16:00 01/05/18 16:00 01/05/18 16:00 01/05/18 16:00 Laboratory Results 01/05/18 04:35 01/04/18 04:30 01/04/18 01/05/18 01/06/18 05:59 05:59 05:59 Intake Total 1100 1500 Output Total 500 950 Balance 600 550 - Physical Exam Constitutional: no apparent distress, appears nourished, not in pain Cardiovascular: regular rate and rhythym, no murmur, rub, or gallop Respiratory: no respiratory distress, no rales or rhonchi, clear to auscultation Gastrointestinal: normoactive bowel sounds, soft, non-tender abdomen, no palpable masses Skin: no rashes or abrasions, no fluctuance, no induration Neurologic: AAOx3, sensation intact bilaterally Psychiatric: interacting appropriately, not anxious, not encephalopathic, thought process linear ICD10 Worksheet Patient Problems: Problems Problem Status Onset Hypoxia Acute Pneumonia Acute Scabies Acute Alcohol intoxication Acute Altered mental status Acute Confusion Acute Encephalopathy Acute History of acute alcohol intoxication Acute Hyponatremia Acute Hyponatremia Acute Laceration of intraoral surface of lip Acute Osteomyelitis of foot, right, acute Acute
--- NOTE | 2018-01-05 17:37 | PDINTPN ---
Receiving Supervisor Progress Note Assessment/Plan: Assessment: Asthma exacerbation. Improved. Not tight. Wheezing essentially resolved. Hypoxemia improved. Pulmonary infiltrates. Atypical: Bilateral, upper zones greater than lower. Persistent, etiology not clear. Differential include possible aspiration pneumonia and inflammatory lung disease, including eosinophili granulomatosis with eosinophilia (Churg-Lewis) and acute eosinophilic pneumonia. He does have associated bilateral effusions. These appear to be smaller: query parapneumonic verses other inflammatory causes. No evidence of empyema. Doubt congestive heart failure as left ventricular ejection fraction normal. Some diastolic dysfunction with secondary elevated right heart pressures of approximately 40. With persistence of infiltrates lung biopsy and BAL may be of benefit in providing a diagnosis. Thoracentesis may also be helpful. Clinically he looks and sounds significantly better than his x-ray would suggest. Eosinophilia. Present on admission. Has resolved with steroids. Elevated IgE: Value quite high, greater than 5000. Possibly allergic or secondary to Churg-Lewis, eosiniphilic pneumonia. ABPA unlikely with no mucous plugging. . Anemia: Workup in progress Scabies: Status post treatment. Plan: Continue present antibiotics. Continue bronchopulmonary therapies. Continue prednisone at 60. Continue oxygen as needed. Continue to mobilize/ ambulate. Await ANCAs (but will take a few days to come back). Recheck CXR. Consider thoracentesis, bronchoscopy pending results of CXR tomorrow. Subjective: Reports that breathing is about the same. Has wheezing at night, and lungs feel tight with activity during the day. Objective: Vital Signs Temp Pulse Resp BP Pulse Ox 36.9 C 100 16 137/85 H 89 L 01/05/18 16:00 01/05/18 16:00 01/05/18 16:00 01/05/18 16:00 01/05/18 16:00 Laboratory Results 01/05/18 04:35 01/04/18 04:30 01/04/18 01/05/18 01/06/18 05:59 05:59 05:59 Intake Total 1100 1500 550 Output Total 500 950 Balance 600 550 550 Physical Exam - Physical Exam General Appearance: alert, no apparent distress EENT: normal ENT inspection Neck: normal inspection Respiratory: other (coarse breath sounds throughout), No lungs clear Cardiac/Chest: regular rate, rhythm, No edema Abdomen: normal bowel sounds, non-tender Skin: normal color, warm/dry Extremities: normal inspection Neuro/Psych: alert, normal mood/affect, oriented x 3 ICD10 Worksheet Patient Problems: Problems Problem Status Onset Hypoxia Acute Pneumonia Acute Scabies Acute Alcohol intoxication Acute Altered mental status Acute Confusion Acute Encephalopathy Acute History of acute alcohol intoxication Acute Hyponatremia Acute Hyponatremia Acute Laceration of intraoral surface of lip Acute Osteomyelitis of foot, right, acute Acute
[2018-01-05] MEDS: DIPHENHYDRAMINE CREAM TP PRN (18:35)
[2018-01-06] MEDS: metroNIDAZOLE 500 MG TAB PO SCH ×3 (04:59→21:06)
[2018-01-06] MEDS: DIPHENHYDRAMINE CREAM TP PRN ×2 (05:03→13:03)
[2018-01-06] MEDS: IPRATROPIUM/ALBUTEROL 3 ML DEYVIAL IH SCH ×4 (05:28→21:10)
[2018-01-06] MEDS: THIAMINE HCL 100 MG TAB PO SCH (09:05)
[2018-01-06] MEDS: AZITHROMYCIN 250 MG TAB PO SCH (09:05)
[2018-01-06] MEDS: FERROUS SULFATE 325 MG TAB PO SCH ×2 (09:06→21:06)
[2018-01-06] MEDS: predniSONE 20 MG TAB PO SCH (09:06)
[2018-01-06] MEDS: FOLIC ACID 1 MG TAB PO SCH (09:06)
[2018-01-06] MEDS: MULTIVITAMINS 1 EACH TAB PO SCH (09:07)
[2018-01-06] MEDS: CYANO/VITAMIN B12 1000 MCG/ML VIAL IM SCH (09:07)
[2018-01-06] MEDS: PANTOPRAZOLE SODIUM 40 MG TAB PO SCH (09:11)
--- NOTE | 2018-01-06 11:45 | SOAPPROG ---
SOAP Progress Note Assessment/Plan: Assessment: 1. ROSALINA secondary to GERD with patchy erosions/shallow ulcers. 2. Colon polyp removed yesterday. 3. Fhx of colon ca. 4. COPD with exacerbation; improving. Plan: 1. Protonix 40 mg PO Qam chronically. 2. Await path reports. 3. No F/U EGD needed. 4. F/U colonoscopy in 5 years. 5. I will sign off today, please call me for further GI issues. Ruben Rahman MD 01/06/18 11:47 Subjective: CC: ROSALINA. Interval HPI: No GI complaints, tolerating po diet, no melena. Objective: Vital Signs Temp Pulse Resp BP Pulse Ox 37.1 C 99 91 H 161/99 H 16 L 01/06/18 11:35 01/06/18 11:35 01/06/18 11:35 01/06/18 11:35 01/06/18 11:35 Laboratory Results 01/05/18 04:35 01/04/18 04:30 01/05/18 01/06/18 01/07/18 05:59 05:59 05:59 Intake Total 1500 550 Output Total 950 Balance 550 550 Physical Exam - Physical Exam General Appearance: WD/WN, alert, no apparent distress Respiratory: lungs clear, normal breath sounds Cardiac/Chest: regular rate, rhythm Abdomen: normal bowel sounds, non-tender, soft Skin: normal color, warm/dry Neuro/Psych: alert, normal mood/affect, oriented x 3 ICD10 Worksheet Patient Problems: Problems Problem Status Onset Hypoxia Acute Pneumonia Acute Scabies Acute Alcohol intoxication Acute Altered mental status Acute Confusion Acute Encephalopathy Acute History of acute alcohol intoxication Acute Hyponatremia Acute Hyponatremia Acute Laceration of intraoral surface of lip Acute Osteomyelitis of foot, right, acute Acute
--- NOTE | 2018-01-06 16:53 | PDINTPN ---
Science Consultant Progress Note Assessment/Plan: Assessment: Asthma exacerbation. Improved. Not tight. Wheezing essentially resolved. Hypoxemia improved. Pulmonary infiltrates. Atypical: Bilateral, upper zones greater than lower. Persistent, etiology not clear. Differential include possible aspiration pneumonia and inflammatory lung disease, including acute eosinophilic pneumonia. ANCA negative essentially excludes Churgg-Lewis. He does have associated bilateral effusions. These appear to be smaller: query parapneumonic verses other inflammatory causes. No evidence of empyema. Doubt congestive heart failure as left ventricular ejection fraction normal. Some diastolic dysfunction with secondary elevated right heart pressures of approximately 40. With persistence of infiltrates lung biopsy and BAL may still be of benefit in providing a diagnosis. Thoracentesis may also be helpful. Clinically he looks and sounds significantly better than his x-ray would suggest. Eosinophilia. Present on admission. Has resolved with steroids. Elevated IgE: Value quite high, greater than 5000. Possibly allergic or secondary to eosiniphilic pneumonia. ABPA unlikely with no mucous plugging. Anemia: Workup in progress Scabies: Status post treatment. Plan: Continue present antibiotics. Continue bronchopulmonary therapies. Continue prednisone at 60. Continue oxygen as needed. Continue to mobilize/ ambulate. Check BNP, diurese if elevated. If not, consider bronch/Bx, thoracentesis. 01/06/18 16:58 01/06/18 16:59 Subjective: Feels a bit better, less chest tightness with activity. Objective: Vital Signs Temp Pulse Resp BP Pulse Ox 36.8 C 97 16 161/99 H 91 L 01/06/18 16:00 01/06/18 16:00 01/06/18 16:00 01/06/18 16:00 01/06/18 16:00 Laboratory Results 01/05/18 04:35 01/04/18 04:30 01/05/18 01/06/18 01/07/18 05:59 05:59 05:59 Intake Total 1500 550 Output Total 950 Balance 550 550 Laboratory Tests 01/05/18 04:35 Proteinase 3 (PR3) < 0.2 Myeloperoxidase Ab <0.2 CXR: Little change in diffuse alveolar infiltrates. Images reviewed by me. Physical Exam - Physical Exam General Appearance: alert, no apparent distress EENT: normal ENT inspection Neck: normal inspection Respiratory: rales Cardiac/Chest: regular rate, rhythm, No edema Abdomen: normal bowel sounds, non-tender Skin: normal color, warm/dry Extremities: normal inspection Neuro/Psych: alert, normal mood/affect, oriented x 3 ICD10 Worksheet Patient Problems: Problems Problem Status Onset Hypoxia Acute Pneumonia Acute Scabies Acute Alcohol intoxication Acute Altered mental status Acute Confusion Acute Encephalopathy Acute History of acute alcohol intoxication Acute Hyponatremia Acute Hyponatremia Acute Laceration of intraoral surface of lip Acute Osteomyelitis of foot, right, acute Acute
--- NOTE | 2018-01-06 17:25 | HOSPPROG ---
Hospitalist Progress Note Assessment/Plan: * COPD/asthma exacerbation -steroids, nebs * Pulmonary infiltrates - aspiration PNA vs. other -IV ceftriaxone + azithro + Flagyl - stop date set with pharmacy * Acute respiratory failure - still extreme SOB with any exertion * IgE > 5000 -extreme elevation concerning -rule out Churg-Lewis vs. ABPA vs eosinophilic PNA -d/w Dr. Ruiz - this elevation is NOT from scabies * Eosinophilia (25% pre steroid treatment) -due to asthma vs eosinophilic pulmonary process vs. scabies * Possible Churg Lewis -send vasculitis work-up -consider lung biopsy -pulmonary infiltrates worsening -d/w Dr. Campuzano - check BNP, consider more IV lasix -if not pulmonary edema, then lung biopsy * Scabies s/p treatment * Esophagitis due to GERD -PPI for 2 months * Fe deficient anemia -ferritin 17, s/p IV iron * B12 deficiency -start B12 * Tobacco dependence * Etoh abuse -minimal withdrawal noted * Lactate elevation - resolved -suspect due to dehydration * Bipolar vs. schizophrenia -not taking any home meds * Pulmonary HTN by ECHO Subjective: No new complaints. Objective: Vital Signs Temp Pulse Resp BP Pulse Ox 36.8 C 97 16 161/99 H 91 L 01/06/18 16:00 01/06/18 16:00 01/06/18 16:00 01/06/18 16:00 01/06/18 16:00 Laboratory Results 01/05/18 04:35 01/04/18 04:30 01/05/18 01/06/18 01/07/18 05:59 05:59 05:59 Intake Total 1500 550 Output Total 950 Balance [address] campuzano regarding biopsy plan CXR viewed - my personal interpretation is - worsening bilateral infiltrates - Physical Exam Constitutional: no apparent distress, appears nourished, not in pain Cardiovascular: regular rate and rhythym, no murmur, rub, or gallop Respiratory: no respiratory distress, no rales or rhonchi, clear to auscultation Gastrointestinal: normoactive bowel sounds, soft, non-tender abdomen, no palpable masses Skin: no rashes or abrasions, no fluctuance, no induration Neurologic: AAOx3, sensation intact bilaterally Psychiatric: interacting appropriately, not anxious, not encephalopathic, thought process linear ICD10 Worksheet Patient Problems: Problems Problem Status Onset History of acute alcohol intoxication Acute Osteomyelitis of foot, right, acute Acute Alcohol intoxication Acute Altered mental status Acute Hyponatremia Acute Laceration of intraoral surface of lip Acute Hyponatremia Acute Confusion Acute Encephalopathy Acute Scabies Acute Pneumonia Acute Hypoxia Acute
[2018-01-07] MEDS: metroNIDAZOLE 500 MG TAB PO SCH ×3 (04:49→20:58)
[2018-01-07 05:30] LABS: PLATELET COUNT 316 10^3/uL (150-400)
[2018-01-07] MEDS: IPRATROPIUM/ALBUTEROL 3 ML DEYVIAL IH SCH ×4 (05:38→22:32)
[2018-01-07] MEDS ORDERED: hydrALAZINE 10 MG TAB PO PRN (06:47)
[2018-01-07] MEDS: FERROUS SULFATE 325 MG TAB PO SCH ×2 (08:46→20:59)
[2018-01-07] MEDS: MULTIVITAMINS 1 EACH TAB PO SCH (08:46)
[2018-01-07] MEDS: PANTOPRAZOLE SODIUM 40 MG TAB PO SCH (08:46)
[2018-01-07] MEDS: FOLIC ACID 1 MG TAB PO SCH (08:46)
[2018-01-07] MEDS: THIAMINE HCL 100 MG TAB PO SCH (08:46)
[2018-01-07] MEDS: AZITHROMYCIN 250 MG TAB PO SCH (08:46)
[2018-01-07] MEDS: predniSONE 20 MG TAB PO SCH (08:46)
[2018-01-07] MEDS: CYANO/VITAMIN B12 1000 MCG/ML VIAL IM SCH (08:46)
--- NOTE | 2018-01-07 13:07 | HOSPPROG ---
Hospitalist Progress Note Assessment/Plan: 57 yo M w b/l infiltrates, eosinophilia COPD/asthma exacerbation -steroids, nebs Pulmonary infiltrates - aspiration PNA vs. other -IV ceftriaxone + azithro + Flagyl - stop date set with pharmacy Acute respiratory failure - still extreme SOB with any exertion IgE > 5000 -extreme elevation concerning -rule out Churg-Lewis vs. ABPA vs eosinophilic PNA neg ANCA makes churg lewis unlikley -d/w Dr. Ruiz - this elevation is NOT from scabies Eosinophilia (25% pre steroid treatment) -due to asthma vs eosinophilic pulmonary process vs. scabies probably needs lung bx Possible Churg Lewis -send vasculitis work-up -consider lung biopsy -pulmonary infiltrates worsening -d/w Dr. Campuzaon - check BNP, consider more IV lasix -if not pulmonary edema, then lung biopsy diurese today (01/07), repeat cxr 01/08 bronch/bx if no improvement i suspect his elevated bnp is from pulm htn Scabies s/p treatment Esophagitis due to GERD -PPI for 2 months Fe deficient anemia -ferritin 17, s/p IV iron B12 deficiency -start B12 Tobacco dependence Etoh abuse -minimal withdrawal noted Lactate elevation - resolved -suspect due to dehydration Bipolar vs. schizophrenia -not taking any home meds Pulmonary HTN by ECHO Subjective: case d/w dr campuzano. yesterday cxr w improved but still present b/l infiltrates, fluid in R fissure Objective: Vital Signs Temp Pulse Resp BP Pulse Ox 37.0 C 101 H 18 160/91 H 89 L 01/07/18 11:40 01/07/18 11:40 01/07/18 11:40 01/07/18 11:40 01/07/18 11:40 Laboratory Results 01/07/18 04:40 01/04/18 04:30 01/06/18 01/07/18 01/08/18 05:59 05:59 05:59 Intake Total 550 150 Output Total 700 260 Balance 550 -550 -260 - Physical Exam Constitutional: no apparent distress, appears nourished Eyes: PERRL, anicteric sclera Ears, Nose, Mouth, Throat: moist mucous membranes, hearing normal Cardiovascular: regular rate and rhythym, tachycardia, No systolic murmur Respiratory: other (b/l crackles, good air movement, no wheeze) Gastrointestinal: normoactive bowel sounds, soft, non-tender abdomen Genitourinary: no bladder fullness, No west in urethra Skin: warm, normal color Musculoskeletal: full muscle strength Neurologic: AAOx3 ICD10 Worksheet Patient Problems: Problems Problem Status Onset Hypoxia Acute Pneumonia Acute Scabies Acute Alcohol intoxication Acute Altered mental status Acute Confusion Acute Encephalopathy Acute History of acute alcohol intoxication Acute Hyponatremia Acute Hyponatremia Acute Laceration of intraoral surface of lip Acute Osteomyelitis of foot, right, acute Acute
[2018-01-07 13:41] LABS: INR 1.08 (0.83-1.16); PROTIME(PATIENT) 14.2 SEC (12.0-15.0)
[2018-01-07] MEDS: FUROSEMIDE 40 MG/4 ML VIAL IVP SCH (15:00)
--- NOTE | 2018-01-07 15:55 | PDINTPN ---
Slagger Progress Note Assessment/Plan: Assessment: Asthma exacerbation. Improved. Not tight. Wheezing essentially resolved. Hypoxemia improved. Pulmonary infiltrates. Atypical: Bilateral, upper zones greater than lower. Persistent, etiology not clear. Differential include possible aspiration pneumonia and inflammatory lung disease, including acute eosinophilic pneumonia. ANCA negative essentially excludes Churgg-Lewis. He does have associated bilateral effusions. These appear to be smaller: query parapneumonic verses other inflammatory causes. No evidence of empyema. ? congestive heart failure despite normal LVEF? Some diastolic dysfunction with secondary elevated right heart pressures of approximately 40. Clinically he looks and sounds significantly better than his x-ray would suggest. Eosinophilia. Present on admission. Has resolved with steroids. Elevated IgE: Value quite high, greater than 5000. Possibly allergic or secondary to eosiniphilic pneumonia. ABPA unlikely with no mucous plugging. Anemia: Workup in progress Scabies: Status post treatment. Plan: Continue present antibiotics. Continue bronchopulmonary therapies. Continue prednisone at 60. Continue oxygen as needed. Add Lasix. Thoracentesis diagnostic (to determine if this is from cardiac/CHF) and therapeutic. 01/07/18 15:53 Subjective: Feels that chest tightness with exertion continues to improve Minimal cough. Objective: Vital Signs Temp Pulse Resp BP Pulse Ox 37.0 C 101 H 18 160/91 H 89 L 01/07/18 11:40 01/07/18 11:40 01/07/18 11:40 01/07/18 11:40 01/07/18 11:40 Laboratory Results 01/07/18 04:40 01/04/18 04:30 01/06/18 01/07/18 01/08/18 05:59 05:59 05:59 Intake Total 550 150 Output Total 700 260 Balance 550 -550 -260 PT 14.2 SEC (12.0-15.0) 01/07/18 13:25 INR 1.08 (0.83-1.16) 01/07/18 13:25 Laboratory Tests 01/06/18 17:30 NT-Pro-B Natriuret Pep 2290 H Physical Exam - Physical Exam General Appearance: alert, no apparent distress EENT: normal ENT inspection Neck: normal inspection Respiratory: crackles Cardiac/Chest: regular rate, rhythm, No edema Abdomen: normal bowel sounds, non-tender, soft Skin: normal color, warm/dry Extremities: normal inspection Neuro/Psych: alert, normal mood/affect, oriented x 3 ICD10 Worksheet Patient Problems: Problems Problem Status Onset Hypoxia Acute Pneumonia Acute Scabies Acute Alcohol intoxication Acute Altered mental status Acute Confusion Acute Encephalopathy Acute History of acute alcohol intoxication Acute Hyponatremia Acute Hyponatremia Acute Laceration of intraoral surface of lip Acute Osteomyelitis of foot, right, acute Acute
--- NOTE | 2018-01-07 15:58 | ASMTCMCOM ---
CM Note CM Note Notes: CM provided pt clothes from donations. Hazel from [facility] met w/ pt today. Pt will most likely d/c to the streets when medically stable. CM available w/ obtaining a long term reservation. Plan: Independent Date Signed: 01/07/2018 03:57 PM Electronically Signed By:MAURISIO Richter
[2018-01-08] MEDS: IPRATROPIUM/ALBUTEROL 3 ML DEYVIAL IH SCH ×4 (05:35→20:55)
[2018-01-08] MEDS: metroNIDAZOLE 500 MG TAB PO SCH ×3 (06:39→21:47)
[2018-01-08] MEDS: MULTIVITAMINS 1 EACH TAB PO SCH (10:12)
[2018-01-08] MEDS: AZITHROMYCIN 250 MG TAB PO SCH (10:12)
[2018-01-08] MEDS: FOLIC ACID 1 MG TAB PO SCH (10:12)
[2018-01-08] MEDS: predniSONE 20 MG TAB PO SCH (10:13)
[2018-01-08] MEDS: THIAMINE HCL 100 MG TAB PO SCH (10:13)
[2018-01-08] MEDS: PANTOPRAZOLE SODIUM 40 MG TAB PO SCH (10:14)
[2018-01-08] MEDS: FERROUS SULFATE 325 MG TAB PO SCH ×2 (10:14→20:30)
[2018-01-08] MEDS: CYANO/VITAMIN B12 1000 MCG/ML VIAL IM SCH (10:17)
[2018-01-08] MEDS: FUROSEMIDE 40 MG/4 ML VIAL IVP SCH ×2 (10:20→15:29)
--- NOTE | 2018-01-08 10:28 | HOSPPROG ---
Hospitalist Progress Note Assessment/Plan: 57 yo M w b/l infiltrates, eosinophilia COPD/asthma exacerbation -steroids, nebs probably begin to taper steroids soon Pulmonary infiltrates - aspiration PNA vs. other -IV ceftriaxone + azithro + Flagyl - stop date set with pharmacy Acute respiratory failure - still extreme SOB with any exertion IgE > 5000 -extreme elevation concerning -rule out Churg-Lewis vs. ABPA vs eosinophilic PNA neg ANCA makes churg lewis unlikley -d/w Dr. Ruiz - this elevation is NOT from scabies Eosinophilia (25% pre steroid treatment) -due to asthma vs eosinophilic pulmonary process vs. scabies probably needs lung bx Possible Churg Lewis -send vasculitis work-up -consider lung biopsy -pulmonary infiltrates worsening -d/w Dr. Campuzano - check BNP, consider more IV lasix -if not pulmonary edema, then lung biopsy diurese today (01/07), repeat cxr 01/08 bronch/bx if no improvement i suspect his elevated bnp is from pulm htn 01/08- await cxr Scabies s/p treatment Esophagitis due to GERD -PPI for 2 months Fe deficient anemia -ferritin 17, s/p IV iron B12 deficiency -start B12 Tobacco dependence Etoh abuse -minimal withdrawal noted Lactate elevation - resolved -suspect due to dehydration Bipolar vs. schizophrenia -not taking any home meds Pulmonary HTN by ECHO Subjective: good diuresis (1.5 L) neg. case d/w dr campuzano. R pleural effusion insufficient volume for thoracentesis Objective: Vital Signs Temp Pulse Resp BP Pulse Ox 36.7 C 80 16 175/102 H 93 01/08/18 08:00 01/08/18 08:00 01/08/18 08:00 01/08/18 08:00 01/08/18 08:00 Laboratory Results 01/07/18 04:40 01/04/18 04:30 01/07/18 01/08/18 01/09/18 05:59 05:59 05:59 Intake Total 150 200 Output Total 700 1260 200 Balance -550 -1060 -200 PT 14.2 SEC (12.0-15.0) 01/07/18 13:25 INR 1.08 (0.83-1.16) 01/07/18 13:25 - Physical Exam Constitutional: no apparent distress, appears nourished Eyes: PERRL, anicteric sclera Ears, Nose, Mouth, Throat: moist mucous membranes, hearing normal Cardiovascular: regular rate and rhythym, no murmur, rub, or gallop Respiratory: no respiratory distress, other (scattered rhonchi. improved from yesterday. no wheeze) Gastrointestinal: normoactive bowel sounds, soft, non-tender abdomen Genitourinary: no bladder fullness, No west in urethra Skin: warm, normal color Musculoskeletal: full muscle strength Neurologic: AAOx3 ICD10 Worksheet Patient Problems: Problems Problem Status Onset Hypoxia Acute Pneumonia Acute Scabies Acute Alcohol intoxication Acute Altered mental status Acute Confusion Acute Encephalopathy Acute History of acute alcohol intoxication Acute Hyponatremia Acute Hyponatremia Acute Laceration of intraoral surface of lip Acute Osteomyelitis of foot, right, acute Acute
[2018-01-08] MEDS: DIPHENHYDRAMINE CREAM TP PRN ×2 (15:26→15:30)
--- NOTE | 2018-01-08 16:56 | PDINTPN ---
Sweep Molder Progress Note Assessment/Plan: Assessment: Asthma exacerbation. Improved. Not tight with exertion. Wheezing essentially resolved. Hypoxemia improved. Pulmonary infiltrates. Atypical: Bilateral, upper zones greater than lower. Persistent, etiology not clear. Differential include possible aspiration pneumonia and inflammatory lung disease, including acute eosinophilic pneumonia. ANCA negative essentially excludes Churgg-Lewis. He does have associated bilateral effusions. These appear to be smaller: query parapneumonic verses other inflammatory causes. No evidence of empyema. ? congestive heart failure despite normal LVEF? Some diastolic dysfunction with secondary elevated right heart pressures of approximately 40. On day #9 CTX. Eosinophilia. Present on admission. Has resolved with steroids. Elevated IgE: Value quite high, greater than 5000. Possibly allergic or secondary to eosiniphilic pneumonia. ABPA unlikely with no mucous plugging. Anemia: Workup in progress Scabies: Status post treatment. Plan: Complete 10d of CTX (01/09/18). Reduce prednisone to 40 qd. Reduce Lasix to 20 PO qd, may d/c in the next few days. Continue oxygen as needed (on RA had sat 86% with walk, 90% with rest). Would not proceed with bronch at this point. Can probably go home in 1-2 days +/- oxygen, follow up in our office. If his symptoms worsen and CXR shows infiltrates with eosinophils, would biopsy at that point. 01/08/18 16:51 Subjective: Feels better, less NORMAN. Objective: Vital Signs Temp Pulse Resp BP Pulse Ox 37.2 C 75 14 170/97 H 99 01/08/18 15:48 01/08/18 16:34 01/08/18 16:34 01/08/18 15:48 01/08/18 16:34 Laboratory Results 01/07/18 04:40 01/08/18 10:33 01/07/18 01/08/18 01/09/18 05:59 05:59 05:59 Intake Total 150 200 Output Total 700 1260 200 Balance -550 -1060 -200 PT 14.2 SEC (12.0-15.0) 01/07/18 13:25 INR 1.08 (0.83-1.16) 01/07/18 13:25 CXR: Significant improvement in infiltrates compared to 2 days ago. Images reviewed by me. Physical Exam - Physical Exam General Appearance: alert, no apparent distress EENT: normal ENT inspection Neck: normal inspection Respiratory: lungs clear Cardiac/Chest: normal peripheral pulses, regular rate, rhythm Abdomen: normal bowel sounds, non-tender Skin: normal color, warm/dry Extremities: normal inspection Neuro/Psych: alert, normal mood/affect, oriented x 3 ICD10 Worksheet Patient Problems: Problems Problem Status Onset Hypoxia Acute Pneumonia Acute Scabies Acute Alcohol intoxication Acute Altered mental status Acute Confusion Acute Encephalopathy Acute History of acute alcohol intoxication Acute Hyponatremia Acute Hyponatremia Acute Laceration of intraoral surface of lip Acute Osteomyelitis of foot, right, acute Acute
[2018-01-09] MEDS: IPRATROPIUM/ALBUTEROL 3 ML DEYVIAL IH SCH ×4 (05:26→21:21)
[2018-01-09 06:11] LABS: PLATELET COUNT 320 10^3/uL (150-400)
[2018-01-09] MEDS: FOLIC ACID 1 MG TAB PO SCH (08:06)
[2018-01-09] MEDS: predniSONE 20 MG TAB PO SCH (08:06)
[2018-01-09] MEDS: FERROUS SULFATE 325 MG TAB PO SCH ×2 (08:06→20:07)
[2018-01-09] MEDS: PANTOPRAZOLE SODIUM 40 MG TAB PO SCH (08:06)
[2018-01-09] MEDS: MULTIVITAMINS 1 EACH TAB PO SCH (08:07)
[2018-01-09] MEDS: THIAMINE HCL 100 MG TAB PO SCH (08:07)
[2018-01-09] MEDS: CYANO/VITAMIN B12 1000 MCG/ML VIAL IM SCH (08:07)
--- NOTE | 2018-01-09 11:12 | HOSPPROG ---
Hospitalist Progress Note Assessment/Plan: 57 yo M w b/l infiltrates, eosinophilia COPD/asthma exacerbation -steroids, nebs 01/09: taper steroids has completed abx on RA diuresis: about 2 L neg since pm of 01/07. continue overnight dc AM 01/10 and re eval Pulmonary infiltrates - aspiration PNA vs. other -IV ceftriaxone + azithro + Flagyl s/p elevated IgE and eosinophils noted, has improved markedly w diuresis Acute respiratory failure - improving IgE > 5000 -extreme elevation concerning -rule out Churg-Lewis vs. 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 scabies as above Scabies s/p treatment Esophagitis due to GERD -PPI for 2 months Fe deficient anemia -ferritin 17, s/p IV iron B12 deficiency -start B12 Tobacco dependence Etoh abuse -minimal withdrawal noted Lactate elevation - resolved -suspect due to dehydration Bipolar vs. schizophrenia -not taking any home meds Pulmonary HTN by ECHO- likely 2/2 pulm process suspect has resolved Subjective: case d/w dr campuzano. cxr much improved after diuresis (interp by me) Objective: Vital Signs Temp Pulse Resp BP Pulse Ox 37.1 C 86 16 148/90 H 93 01/09/18 07:48 01/09/18 09:51 01/09/18 09:51 01/09/18 07:48 01/09/18 09:51 Laboratory Results 01/09/18 05:30 01/09/18 05:30 01/08/18 01/09/18 01/10/18 05:59 05:59 05:59 Intake Total 200 Output Total 1260 200 Balance -1060 -200 PT 14.2 SEC (12.0-15.0) 01/07/18 13:25 INR 1.08 (0.83-1.16) 01/07/18 13:25 - Physical Exam Constitutional: no apparent distress, appears nourished Eyes: PERRL, anicteric sclera Ears, Nose, Mouth, Throat: moist mucous membranes, hearing normal Cardiovascular: regular rate and rhythym, no murmur, rub, or gallop Respiratory: no respiratory distress, no rales or rhonchi, clear to auscultation Gastrointestinal: normoactive bowel sounds, soft, non-tender abdomen Genitourinary: No west in urethra Skin: warm, normal color Musculoskeletal: full muscle strength, no muscle tenderness Neurologic: AAOx3 Psychiatric: interacting appropriately ICD10 Worksheet Patient Problems: Problems Problem Status Onset Hypoxia Acute Pneumonia Acute Scabies Acute Alcohol intoxication Acute Altered mental status Acute Confusion Acute Encephalopathy Acute History of acute alcohol intoxication Acute Hyponatremia Acute Hyponatremia Acute Laceration of intraoral surface of lip Acute Osteomyelitis of foot, right, acute Acute
--- NOTE | 2018-01-09 15:28 | PDINTPN ---
Wafer Abrading Machine Tender Progress Note Assessment/Plan: Assessment: Asthma exacerbation. Improved. Not tight with exertion. Wheezing essentially resolved. Hypoxemia improved. Pulmonary infiltrates. Atypical: Bilateral, upper zones greater than lower. Persistent, etiology not clear. Differential include possible aspiration pneumonia and inflammatory lung disease, including acute eosinophilic pneumonia. ANCA negative essentially excludes Churgg-Lewis. He does have associated bilateral effusions. These appear to be smaller: query parapneumonic verses other inflammatory causes. No evidence of empyema. ? congestive heart failure despite normal LVEF? Some diastolic dysfunction with secondary elevated right heart pressures of approximately 40. Completed 10d CTX. Eosinophilia. Present on admission. Has resolved with steroids. Elevated IgE: Value quite high, greater than 5000. Possibly allergic or secondary to eosinophilic pneumonia. ABPA unlikely with no mucous plugging/ bronchiectasis. Anemia: Workup in progress Scabies: Status post treatment. C/O some prurutis, improved with HC creme. Plan: Completed 10d of CTX. Reduce prednisone to 40 qd. Continue Lasix, ? discharge on PO. Probably won't need oxygen. Would not proceed with bronch at this point. Can probably go home tomorrow follow up in our office. If his symptoms worsen and CXR shows infiltrates with eosinophils, would biopsy at that point. 01/09/18 15:28 Subjective: Breathing feels better, not dyspneic, no cough. Objective: Vital Signs Temp Pulse Resp BP Pulse Ox 37.1 C 86 16 148/90 H 93 01/09/18 07:48 01/09/18 09:51 01/09/18 09:51 01/09/18 07:48 01/09/18 09:51 Laboratory Results 01/09/18 05:30 01/09/18 05:30 01/08/18 01/09/18 01/10/18 05:59 05:59 05:59 Intake Total 200 Output Total 1260 200 Balance -1060 -200 PT 14.2 SEC (12.0-15.0) 01/07/18 13:25 INR 1.08 (0.83-1.16) 01/07/18 13:25 Physical Exam - Physical Exam General Appearance: alert, no apparent distress EENT: normal ENT inspection Neck: normal inspection Respiratory: lungs clear, normal breath sounds Cardiac/Chest: regular rate, rhythm, edema Abdomen: normal bowel sounds, non-tender Skin: normal color, warm/dry Extremities: normal inspection Neuro/Psych: alert, normal mood/affect, oriented x 3 ICD10 Worksheet Patient Problems: Problems Problem Status Onset Hypoxia Acute Pneumonia Acute Scabies Acute Alcohol intoxication Acute Altered mental status Acute Confusion Acute Encephalopathy Acute History of acute alcohol intoxication Acute Hyponatremia Acute Hyponatremia Acute Laceration of intraoral surface of lip Acute Osteomyelitis of foot, right, acute Acute
[2018-01-09] MEDS: FUROSEMIDE 40 MG/4 ML VIAL IVP SCH (15:33)
--- NOTE | 2018-01-09 16:27 | ASMTCMCOM ---
CM Note CM Note Notes: 01/09/2018 Case Management Note Reviewed chart. PT eval indicates pt is independent. Case Management d/c poc: remains independent likely to the streets. Will check with pt on day of discharge if reserved snf bed is desireable. 01/07 2018 CM Note CM provided pt clothes from donations. Hazel from [facility] met w/ pt today. Pt will most likely d/c to the streets when medically stable. CM available w/ obtaining a snf reservation. Plan: Independent 01/01/2018 CM Note CM met with Pt. Pt is chronically homeless and is not interested in following the rules necessary to be able to sleep at the [facility] year round. He is unclear as to whether he would like a bed for the day he is d/c'ed. he does have a court hearing; he is unclear if he missed it or if it's coming up. he receives btwn 200 and 300 a month from his mother's trust. He spoke of needing new glasses and knowing how to pursue them once he's d/c'ed. CM to follow. D/C Plan: Anticipate streets, maybe snf bed. Date Signed: 01/09/2018 04:25 PM Electronically Signed By:Sara Jerome RN
[2018-01-10] MEDS ORDERED: predniSONE 20 MG TAB PO SCH
[2018-01-10] MEDS ORDERED: FUROSEMIDE 20 MG TAB PO SCH
[2018-01-10] MEDS: IPRATROPIUM/ALBUTEROL 3 ML DEYVIAL IH SCH ×2 (06:03→08:39)
[2018-01-10] MEDS: CYANO/VITAMIN B12 1000 MCG/ML VIAL IM SCH (08:30)
[2018-01-10] MEDS: PANTOPRAZOLE SODIUM 40 MG TAB PO SCH (08:30)
[2018-01-10] MEDS: predniSONE 20 MG TAB PO SCH (08:30)
[2018-01-10] MEDS: FUROSEMIDE 40 MG/4 ML VIAL IVP SCH (08:30)
[2018-01-10] MEDS: FERROUS SULFATE 325 MG TAB PO SCH (08:30)
[2018-01-10] MEDS: MULTIVITAMINS 1 EACH TAB PO SCH (08:30)
[2018-01-10] MEDS: FOLIC ACID 1 MG TAB PO SCH (08:30)
[2018-01-10] MEDS: THIAMINE HCL 100 MG TAB PO SCH (08:30)
[2018-01-10] MEDS ORDERED: ALBUTEROL 60 PUFFS/8 GM MDI IH PRN (12:14)
--- NOTE | 2018-01-10 12:14 | PDINTPN ---
Precision Grinder External Progress Note Assessment/Plan: Assessment: Asthma exacerbation. Improved. Not tight with exertion. Wheezing essentially resolved. Hypoxemia improved. Pulmonary infiltrates. Atypical: Bilateral, upper zones greater than lower. Persistent, etiology not clear. Differential include possible aspiration pneumonia and inflammatory lung disease, including acute eosinophilic pneumonia. ANCA negative essentially excludes Churgg-Lewis. He does have associated bilateral effusions. These appear to be smaller: query parapneumonic verses other inflammatory causes. No evidence of empyema. ? congestive heart failure despite normal LVEF? Some diastolic dysfunction with secondary elevated right heart pressures of approximately 40. Completed 10d CTX. Eosinophilia. Present on admission. Has resolved with steroids. Elevated IgE: Value quite high, greater than 5000. Possibly allergic or secondary to eosinophilic pneumonia. ABPA unlikely with no mucous plugging/ bronchiectasis. Anemia: Workup in progress Scabies: Status post treatment. C/O some prurutis, improved with HC creme. Plan: Completed 10d of CTX. Continue prednisone at 40 qd. Change Lasix to 20 mg p.o. Daily. Change albuterol to MDI Would not proceed with bronch at this point. Can probably go home today, follow up in our office in 2 weeks with a chest x- ray. 01/10/18 12:13 Subjective: He feels that his breathing continues to improve and is nearly back to baseline. He denies cough. Objective: Vital Signs Temp Pulse Resp BP Pulse Ox 36.6 C 88 16 154/85 H 95 01/10/18 07:47 01/10/18 08:40 01/10/18 08:40 01/10/18 07:47 01/10/18 08:40 Laboratory Results 01/09/18 05:30 01/09/18 05:30 01/09/18 01/10/18 01/11/18 05:59 05:59 05:59 Intake Total 300 Output Total 200 200 Balance -200 100 PT 14.2 SEC (12.0-15.0) 01/07/18 13:25 INR 1.08 (0.83-1.16) 01/07/18 13:25 Physical Exam - Physical Exam General Appearance: alert, no apparent distress EENT: normal ENT inspection Neck: normal inspection Respiratory: lungs clear, normal breath sounds Cardiac/Chest: regular rate, rhythm, edema Abdomen: normal bowel sounds, non-tender Skin: normal color, warm/dry Extremities: non-tender Neuro/Psych: alert, normal mood/affect, oriented x 3 ICD10 Worksheet Patient Problems: Problems Problem Status Onset Hypoxia Acute Pneumonia Acute Scabies Acute Alcohol intoxication Acute Altered mental status Acute Confusion Acute Encephalopathy Acute History of acute alcohol intoxication Acute Hyponatremia Acute Hyponatremia Acute Laceration of intraoral surface of lip Acute Osteomyelitis of foot, right, acute Acute
--- NOTE | 2018-01-10 12:30 | PDDCSUM ---
Discharge Summary Discharge Summary: This is a 57 yo male, homeless, who was admitted with Asthma exacerbation and pulmonary infiltrates which were unclear in etiology (See below). He was treated with a 10 day course of Rocephin as well as steroids and Diuretics. He will be discharge on a steroid taper, albuterol inhaler, and Lasix 20mg daily. He is to f/u with Dr. Lora in 2 weeks and a CXR will be repeated at that time. He is on RA. [facility] Asthma exacerbation. Improved. Hypoxemia improved. Pulmonary infiltrates. Atypical: Bilateral, upper zones greater than lower. Persistent, etiology not clear. Differential include possible aspiration pneumonia and inflammatory lung disease, including acute eosinophilic pneumonia. ANCA negative essentially excludes Churgg-Lewis. He does have associated bilateral effusions. These appear to be smaller: query parapneumonic verses other inflammatory causes. No evidence of empyema. ? congestive heart failure despite normal LVEF? Some diastolic dysfunction with secondary elevated right heart pressures of approximately 40. Will be d/c on Lasix 20mg daily Eosinophilia. Present on admission. Has resolved with steroids. WOULD BE EXPECTED TO RECUR once steroids have tapered if it is eosinophilic syndrome Elevated IgE: Value quite high, greater than 5000. Possibly allergic or secondary to eosinophilic pneumonia. ABPA unlikely with no mucous plugging/ bronchiectasis. Anemia: Workup in progress Scabies: Status post treatment. C/O some prurutis, improved with HC creme. Esophagitis due to GERD -PPI for 2 months Fe deficient anemia -ferritin 17, s/p IV iron. cont Iron supplementation B12 deficiency -start B12 Tobacco dependence Etoh abuse -minimal withdrawal noted Lactate elevation - resolved -suspect due to dehydration Bipolar vs. schizophrenia -not taking any home meds Exam: NAD RRR MINIMALLY DECREASED LUNG SOUNDS S/NT/ND NO LE EDEMA MEDS: SEE MED REC F/U: PER ABOVE TOTAL TIME SPENT ON D/C IS 35 MINS. D/W DR. LROA
--- NOTE | 2018-01-10 12:41 | ASMTLACE ---
LALO Length of stay for Answers: 7-13 days current admission Acuity / Level of Answers: Yes Care: Did the patient have an inpatient admission? Comorbidities - select Answers: Chronic pulmonary disease all that apply Other Notes: HTN # of Emergency department Answers: 3-4 visits in the last 6 months Social determinants Answers: History of substance abuse (ETOH, street drugs, prescription drugs, etc.) Homelessness (street, residential) Mental health diagnosis (anxiety, depression, pers onality disorders, etc.) Score: 23 Date Signed: 01/10/2018 12:41 PM Electronically Signed By:LUPE Barros
--- NOTE | 2018-01-10 12:47 | ASDISCHSUM ---
Discharge Information Plan Status:Homeless/[facility] Medically Cleared to Leave:01/10/2018 Discharge Date:01/10/2018 CM D/C Disposition:Home, Routine, Self-Care ADT D/C Disposition:Home, Routine, Self-Care Projected Discharge Date:01/10/2018 Transportation at D/C:Bus Ticket Discharge Delay Reason: Follow-Up Date:01/10/2018 Discharge Slot: Final Diagnosis: Placement Information Patient Contact Information Contact Name:ALLI Relationship:Soumya Address: Work Phone: City: [facility] Phone: State/[employer] Code: Email: Financial Information Financial Class:Medicaid Primary Plan Desc:[place] Primary Plan Number:[id number] Secondary Plan Desc: Secondary Plan Number: Assessment Information LACE LACE Length of stay for Answers: 7-13 days current admission Acuity / Level of Answers: Yes Care: Did the patient have an inpatient admission? Comorbidities - select Answers: Chronic pulmonary disease all that apply Other Notes: HTN # of Emergency department Answers: 3-4 visits in the last 6 months Social determinants Answers: History of substance abuse (ETOH, street drugs, prescription drugs, etc.) Homelessness (street, assisted) Mental health diagnosis (anxiety, depression, pers onality disorders, etc.) Score: 23 Date Signed: 01/10/2018 12:41 PM Electronically Signed By:LUPE Barros [facility] Progress Note CM Note CM Note Notes: CM reviewed pt's chart for d/c planning. Pt is a 57 y/o male admitted with acute hypoxemic respiratory failure, acute asthma exacerbation, acute interstitial pulmonary infiltrates, acute scabies and new onset severe anemia. Prior to hospitalization pt was transient. CM will meet with pt to determine if he is interested in a assisted bed following d/c. CM to follow. D/C Plan: TBD Date Signed: 12/31/2017 04:51 PM Electronically Signed By:Ifrah Lowery [facility] Progress Note CM Note CM Note Notes: CM met with Pt. Pt is chronically homeless and is not interested in following the rules necessary to be able to sleep at the [facility] year round. He is unclear as to whether he would like a bed for the day he is d/c'ed. he does have a court hearing; he is unclear if he missed it or if it's coming up. he receives btwn 200 and 300 a month from his mother's trust. He spoke of needing new glasses and knowing how to pursue them once he's d/c'ed. CM to follow. D/C Plan: Anticipate streets, maybe assisted bed. Date Signed: 01/01/2018 02:42 PM Electronically Signed By:Ifrah Lowery [facility] Progress Note CM Note CM Note Notes: Pt is a homeless gentleman who continues to be short of breath, he was treated for scabies on admission. Pt will dc to street or assisted, he is unsure that he wants a assisted bed. CM w/f up at dc. See CC note DC plan: [facility] vs Street Date Signed: 01/03/2018 12:34 PM Electronically Signed By:Annmarie Rosenbaum RN [facility] CM Progress Note CM Note CM Note Notes: CM spoke with RN, patient likely to stay tonight and to plan is to have colonoscopy tomorrow. CM to follow. Date Signed: 01/04/2018 10:46 AM Electronically Signed By:Rosaura Real [facility] CM Progress Note CM Note CM Note Notes: Patient may have some resources to help with his health needs at D/C per patient's statement. Patient did have colonscopy today. CM will follow. Date Signed: 01/05/2018 01:28 PM Electronically Signed By:Dorcas Prieto LCSW [facility] CM Progress Note CM Note CM Note Notes: CM provided pt clothes from donations. Hazel from [facility] met w/ pt today. Pt will most likely d/c to the streets when medically stable. CM available w/ obtaining a assisted reservation. Plan: Independent Date Signed: 01/07/2018 03:57 PM Electronically Signed By:MAURISIO Richter [facility] Progress Note CM Note CM Note Notes: 01/09/2018 Case Management Note Reviewed chart. PT eval indicates pt is independent. Case Management d/c poc: remains independent likely to the streets. Will check with pt on day of discharge if reserved assisted bed is desireable. 01/07 2018 CM Note CM provided pt clothes from donations. Hazel from [facility] met w/ pt today. Pt will most likely d/c to the streets when medically stable. CM available w/ obtaining a assisted reservation. Plan: Independent 01/01/2018 CM Note CM met with Pt. Pt is chronically homeless and is not interested in following the rules necessary to be able to sleep at the [facility] year round. He is unclear as to whether he would like a bed for the day he is d/c'ed. he does have a court hearing; he is unclear if he missed it or if it's coming up. he receives btwn 200 and 300 a month from his mother's trust. He spoke of needing new glasses and knowing how to pursue them once he's d/c'ed. CM to follow. D/C Plan: Anticipate streets, maybe assisted bed. Date Signed: 01/09/2018 04:25 PM Electronically Signed By:Sara Jerome RN Case Management Discharge Plan Note Case Management Discharge Discharge Order Complete? Answers: Yes Patient to Obtain Answers: Independently Medications Transportation Arranged Answers: Family/Friends Discharge Comments Notes: Pt is discharging independently today. [facility] bed was reserved for tonight and pt was provided a bus voucher. Date Signed: 01/10/2018 12:45 PM Electronically Signed By:LUPE Barros Intervention Information
[2018-01-10 15:56] VITALS: BP 145/91
[2018-01-11] MEDS ORDERED: FUROSEMIDE 20 MG/2 ML VIAL IVP SCH (09:00)
[2018-01-11] MEDS ORDERED: FUROSEMIDE 20 MG TAB PO SCH (09:00)
== END 2018-01-10 16:43 | disposition home or self-care (01) | DRG 141 ==
LOC: EDUNIT# → F3E 12-31 01:18 → OBSVTOIN 12-31 19:33
PROVIDERS: ADMIT Student in an Organized Health Care Education/Training Program; ATTEND Student in an Organized Health Care Education/Training Program
PROC: 30233P1 Transfusion of Nonautologous Frozen Red Cells into Peripheral Vein, Percutaneous Approach (ICD-10-PCS; 2017-12-31)
PROC: 0DB68ZX Excision of Stomach, Via Natural or Artificial Opening Endoscopic, Diagnostic (ICD-10-PCS; principal; 2018-01-05 09:30)
PROC: 0DBN8ZX Excision of Sigmoid Colon, Via Natural or Artificial Opening Endoscopic, Diagnostic (ICD-10-PCS; principal; 2018-01-05 09:30)
DX: J45.901 Unspecified asthma with (acute) exacerbation (principal); D72.1 Eosinophilia; D50.9 Iron deficiency anemia, unspecified; F10.20 Alcohol dependence, uncomplicated; B86 Scabies; D12.5 Benign neoplasm of sigmoid colon; E86.0 Dehydration; R91.8 Other nonspecific abnormal finding of lung field; F17.200 Nicotine dependence, unspecified, uncomplicated; F99 Mental disorder, not otherwise specified; K21.0 Gastro-esophageal reflux disease with esophagitis; E53.9 Vitamin B deficiency, unspecified; I10 Essential (primary) hypertension; Z23 Encounter for immunization; Z59.0 Homelessness
CPT/HCPCS: 82607-90; 83516-90; 83520-90; 84484-PO; 86162-90; 96365; 97161-GP; 97166-GO; G0008; G0480; J0456; J0696; J1940; J2250; J2704; J2916; J3420; J7512; J7613; P9016; P9040

== ENCOUNTER 2018-04-17 12:46 | Emergency (ER) | payer SELFPAY ==
[2018-04-17] MEDS ORDERED: predniSONE 20 MG TAB PO ONE (13:08)
[2018-04-17] MEDS ORDERED: IPRATROPIUM/ALBUTEROL 3 ML DEYVIAL IH ONE (13:08)
--- NOTE | 2018-04-17 13:22 | EDPHY ---
H & P Stated Complaint: Pt Hx chronic bronchitis, unabetted coughing today. Time Seen by Provider: 04/17/18 12:48 HPI/ROS: CHIEF COMPLAINT: "I am coughing a lot" HISTORY OF PRESENT ILLNESS: 57-year-old homeless male, daily tobacco use, history of COPD, no seasonal influenza vaccination, arrives via ambulance, complaining of 24 hr of intermittently productive cough, dyspnea. No chest pain. No fever or chills. No back pain. No headache. No nuchal rigidity. No otalgia. No dysphagia. No syncope or near syncope. REVIEW OF SYSTEMS: 10 systems reviewed and negative with the exception of the elements mentioned in the history of present illness PAST MEDICAL & SURGICAL HISTORY: COPD. No home oxygen. SOCIAL HISTORY:Daily tobacco use PHYSICAL EXAM (Prior to examination, patient consented to physical exam, hands were washed and my usual and customary physical exam procedures followed) 1) GENERAL: Well-developed, well-nourished, alert and oriented. Appears to be in no acute distress. Speaking full sentences without supplemental oxygen in place. 2) HEAD: Normocephalic, atraumatic 3) HEENT: Pupils equal, round, reactive to light bilaterally. Sclera anicteric. Nasopharynx, oropharynx, clear, no lesions. Moist Mucous membranes. Ears bilaterally with normal tympanic membranes. No evidence of otitis media otitis externa 4) NECK: Full range of motion, no meningeal signs. 5) LUNGS: Bilateral end-expiratory wheeze and bibasilar rales... 6) HEART: Regular rate and rhythm, no murmur, no heave, no gallop. 7) ABDOMEN: No guarding, no rebound, no focal tenderness, negative McBurney's, negative Constantino's, negative Rovsing's, negative peritoneal sign, 8) MUSCULOSKELETAL: Moving all extremities, no focal areas of tenderness, no obvious trauma. No peripheral edema or discoloration. Negative Homans no palpable cord 9) BACK: No CVA tenderness, no midline vertebral tenderness, no fluctuance, no step-off, no obvious trauma, no visual or palpable abnormality. 10) SKIN: No rash, no petechiae. 11) Psychiatric: Patient is oriented X 3, there is no agitation. 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, L ankle MRSA in 2009, frostbite on R toes, COPD - Social History Smoking Status: Heavy smoker Constitutional: Initial Vital Signs Temperature (C) 37.1 C 04/17/18 12:51 Heart Rate 98 04/17/18 12:51 Respiratory Rate 18 04/17/18 12:51 Blood Pressure 146/91 H 04/17/18 12:51 O2 Sat (%) 93 04/17/18 12:51 O2 Delivery Mode Room Air Allergies/Adverse Reactions: codeine [Codeine] Allergy (Verified 04/17/18 12:51) Penicillins Allergy (Verified 04/17/18 12:51) Home Medications: Medication Instructions Recorded Albuterol [Proventil Inhaler HFA 2 puffs IH Q4HRS PRN #1 mdi 01/10/18 (*)] Cyanocobalamin (Vitamin B-12) 1,000 mcg PO DAILY #30 capsule 01/10/18 [Vitamin B-12] Furosemide [Lasix 20 MG (*)] 20 mg PO DAILY #2 tab 01/10/18 Furosemide [Lasix 20 MG (*)] 20 mg PO DAILY #30 tab 01/10/18 Pantoprazole Sodium [Protonix 40mg 40 mg PO DAILY #30 tab 01/10/18 (*)] predniSONE 40 mg PO DAILY #12 tablet 01/10/18 predniSONE 40 mg PO DAILY #4 tab 01/10/18 levOFLOXACIN [levAQUIN (*)] 750 mg PO DAILY 5 Days tab 04/17/18 Medical Decision Making - Diagnostics Imaging Results: Imaging Impressions Chest X-Ray 04/17/18 12:49 Impression: Patchy retrocardiac left lower lobe infiltrate suspicious for early pneumonia. Images reviewed myself ED Course/Re-evaluation: 2:09 p.m.: Re-evaluation after DuoNeb, steroids, Levaquin. He notes significant improvement in symptoms. At this time he is sitting in his room laughing and talking with a friend and appears quite comfortable. No supplemental oxygen. He is maintaining normal saturations at this time. I do not anticipate hospitalization at this time. Plan will be discharged with Levaquin and my usual and customary respiratory precautions instructions. Recommend smoking cessation. Care of patient under supervision of secondary supervising physician Dr Flanagan with whom I discussed case. - Data Points Laboratory Results: 04/17/18 13:15 Nasal Influenza A PCR Pending Nasal Influenza B PCR Pending Medications Given: Discontinued Medications Albuterol/Ipratropium (Duoneb) 3 ml IH EDNOW ONE Stop: 04/17/18 13:09 Last Admin: 04/17/18 13:15 Dose: 3 ml Levofloxacin (Levaquin) 750 mg PO EDNOW ONE PRN Reason: Protocol Stop: 04/17/18 13:37 Last Admin: 04/17/18 13:58 Dose: 750 mg Prednisone (Prednisone) 60 mg PO EDNOW ONE Stop: 04/17/18 13:09 Last Admin: 04/17/18 13:15 Dose: 60 mg Departure - Departure Disposition: Home, Routine, Self-Care Clinical Impression: Pneumonia Qualifiers: Pneumonia type: due to unspecified organism Laterality: left Lung location: lower lobe of lung Qualified Code(s): J18.1 - Lobar pneumonia, unspecified organism Condition: Good Instructions: Bacterial Pneumonia (ED) Additional Instructions: Return to the emergency department immediately for change in breathing habits, change in voice, change in swallowing habits, change in mental status, or any other symptoms that concern you. Referrals: [facility],. [Clinic] - 2-3 days, call for appt. Prescriptions: levOFLOXACIN [levAQUIN (*)] 750 mg PO DAILY 5 Days tab
[2018-04-17 14:00] VITALS: BP 135/91
== END 2018-04-17 14:22 | disposition home or self-care (01) ==
LOC: EDUNIT#
DX: J18.9 Pneumonia, unspecified organism (principal); J44.9 Chronic obstructive pulmonary disease, unspecified; F17.200 Nicotine dependence, unspecified, uncomplicated; Z59.0 Homelessness
CPT/HCPCS: J7512

== ENCOUNTER 2018-05-06 16:34 | Emergency (ER) | payer MEDICAID, OTHER ==
--- NOTE | 2018-05-06 16:43 | EDPHY ---
H & P Stated Complaint: Found under bridge by PD, too intoxicated for [facility] Time Seen by Provider: 05/06/18 16:40 HPI/ROS: CHIEF COMPLAINT: Intoxicated HISTORY OF PRESENT ILLNESS: The patient is brought in by paramedics with alcohol intoxication. He was homeless. Patient reports drinking heavily today. He denies any fall or trauma. He denies acute headache. He denies vomiting. He denies fever. The patient is requesting "cheeseburger with Kazakh fries" in the ED. REVIEW OF SYSTEMS: A comprehensive 10 point review of systems is otherwise negative aside from elements mentioned in the history of present illness. 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, L ankle MRSA in 2009, frostbite on R toes, COPD - Social History Smoking Status: Heavy smoker - Physical Exam Exam: General Appearance: Alert, alcohol on breath, disheveled Eyes: Pupils equal and round no pallor or injection ENT, Mouth: Mucous membranes moist Respiratory: There are no retractions, lungs are clear to auscultation Cardiovascular: Regular rate and rhythm Gastrointestinal: Abdomen is soft and nontender, no masses, bowel sounds normal Neurological: 5/5 strength noted all 4 extremities Skin: Warm and dry, no rashes Musculoskeletal: Neck is supple nontender Extremities: symmetrical, full range of motion Psychiatric: Patient is oriented X 3, there is no agitation Constitutional: Initial Vital Signs Temperature (C) 36.6 C 05/06/18 16:41 Heart Rate 87 05/06/18 16:41 Respiratory Rate 16 05/06/18 16:41 Blood Pressure 130/70 H 05/06/18 16:41 O2 Sat (%) 92 05/06/18 16:41 O2 Delivery Mode Room Air Allergies/Adverse Reactions: codeine [Codeine] Allergy (Verified 04/17/18 12:51) Penicillins Allergy (Verified 04/17/18 12:51) Home Medications: Medication Instructions Recorded Albuterol [Proventil Inhaler HFA 2 puffs IH Q4HRS PRN #1 mdi 01/10/18 (*)] Cyanocobalamin (Vitamin B-12) 1,000 mcg PO DAILY #30 capsule 01/10/18 [Vitamin B-12] Furosemide [Lasix 20 MG (*)] 20 mg PO DAILY #2 tab 01/10/18 Furosemide [Lasix 20 MG (*)] 20 mg PO DAILY #30 tab 01/10/18 Pantoprazole Sodium [Protonix 40mg 40 mg PO DAILY #30 tab 01/10/18 (*)] predniSONE 40 mg PO DAILY #12 tablet 01/10/18 predniSONE 40 mg PO DAILY #4 tab 01/10/18 levOFLOXACIN [levAQUIN (*)] 750 mg PO DAILY 5 Days tab 04/17/18 Medical Decision Making ED Course/Re-evaluation: Patient will be observed in the emergency department for clinical sobriety. He has been placed on a alcohol intoxication hold by the police. When the patient is ambulatory he will be [facility]. Departure - Departure Disposition: Home, Routine, Self-Care Clinical Impression: Alcohol intoxication Condition: Good Instructions: Alcohol Intoxication (ED) Additional Instructions: We recommend utilizing the resources the [facility] for your alcohol dependence. Continued use of alcohol put to at risk for , serious infection and trauma. Referrals: [facility] [Outside] - As per Instructions
[2018-05-06 20:02] VITALS: BP 110/67
== END 2018-05-06 20:02 | disposition home or self-care (01) ==
LOC: EDUNIT#
DX: F10.920 Alcohol use, unspecified with intoxication, uncomplicated (principal); J44.9 Chronic obstructive pulmonary disease, unspecified; I10 Essential (primary) hypertension; F17.200 Nicotine dependence, unspecified, uncomplicated; Z59.0 Homelessness

== ENCOUNTER 2018-05-07 07:36 | Emergency (ER) | payer MEDICAID ==
[2018-05-07 08:11] VITALS: BP 148/89
[2018-05-07] MEDS ORDERED: IPRATROPIUM/ALBUTEROL 3 ML DEYVIAL IH ONE (08:50)
--- NOTE | 2018-05-07 08:53 | EDPHY ---
H & P Stated Complaint: SOB, bugs on skin Time Seen by Provider: 05/07/18 07:59 HPI/ROS: CHIEF COMPLAINT: Shortness of breath HISTORY OF PRESENT ILLNESS: A 57-year-old male with COPD presents with shortness of breath. Several day history of cough, runny nose and sore throat. The cough has persisted and is associated with wheezing and occasional shortness of breath. No fever. Does not have an inhaler. Also has bugs on his clothes. 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, L ankle MRSA in 2009, frostbite on R toes, COPD - Social History Smoking Status: Heavy smoker Alcohol Use: Sober Drug Use: None Additional Social History: Homeless - Physical Exam Exam: General Appearance: Alert, pleasant, well-appearing Eyes: Pupils equal and round, no conjunctival pallor ENT, Mouth: Mucous membranes moist Neck: Normal inspection Respiratory: Normal respiratory rate, good air exchange, scattered end expiratory wheezing Cardiovascular: Regular rate and rhythm Gastrointestinal: Abdomen is soft and nontender Neurological: A&O, nonfocal, normal gait Skin: Warm and dry Extremities: Normal inspection Psychiatric: Mood and affect normal Constitutional: Initial Vital Signs Temperature (C) 37.2 C 05/07/18 07:47 Heart Rate 87 05/07/18 07:47 Respiratory Rate 16 05/07/18 07:47 Blood Pressure 160/90 H 05/07/18 07:47 O2 Sat (%) 92 05/07/18 07:47 O2 Delivery Mode Room Air Allergies/Adverse Reactions: codeine [Codeine] Allergy (Verified 05/07/18 07:47) Penicillins Allergy (Verified 05/07/18 07:47) Medical Decision Making - Diagnostics Imaging Results: Imaging Impressions Chest X-Ray 05/07/18 08:32 Impression: No pneumonia or effusion. Mild airways disease and minimal left basilar atelectasis unchanged. Imaging: I viewed and interpreted images myself ED Course/Re-evaluation: This patient presents with bronchospasm and URI symptoms. Chest x-ray is unremarkable, no evidence of pneumonia. A DuoNeb was given with relief in wheezing and reduction and cough. An albuterol inhaler was dispensed. The patient was strongly encouraged to follow up at [facility]. Differential Diagnosis: Includes though is not limited to influenza, pneumonia, hypoxia, pulmonary edema. - Data Points Medications Given: Discontinued Medications Albuterol Sulfate (Proventil Inh Prepack) 1 mdi TAKEHOME EDNOW ONE Stop: 05/07/18 09:18 Last Admin: 05/07/18 09:51 Dose: 1 mdi Albuterol/Ipratropium (Duoneb) 3 ml IH EDNOW ONE Stop: 05/07/18 08:51 Last Admin: 05/07/18 09:11 Dose: 3 ml Departure - Departure Disposition: Home, Routine, Self-Care Clinical Impression: COPD exacerbation Condition: Good Instructions: COPD (Chronic Obstructive Pulmonary Disease) (ED) Additional Instructions: Use the albuterol inhaler 2 puffs 3 times daily as needed for cough and wheezing. Return for worsening symptoms or any concerns. The [facility] has walk-in appointments for the homeless at the following days/locations. No appointment is needed. Friday 8-10 am @ [facility] 11 AM-1 PM @ [facility] Friday 8-10:30 AM @ [facility] Friday 8-10 AM @ [facility] 2-4 PM @ [facility] Friday 8-10 AM @ [facility] Referrals: NONE *PRIMARY CARE P,. [Primary Care Provider] - As per Instructions [facility],. [Clinic] - As per Instructions
[2018-05-07] MEDS ORDERED: ALBUTEROL INH PREPACK MDI TAKEHOME ONE (09:17)
== END 2018-05-07 09:58 | disposition home or self-care (01) ==
DX: R06.02 Shortness of breath (principal); J44.1 Chronic obstructive pulmonary disease with (acute) exacerbation; I10 Essential (primary) hypertension; F17.200 Nicotine dependence, unspecified, uncomplicated; Z59.0 Homelessness

== ENCOUNTER 2018-05-18 22:47 | Emergency (ER) | payer MEDICAID ==
--- NOTE | 2018-05-18 22:52 | EDPHY ---
H & P Time Seen by Provider: 05/18/18 22:51 HPI/ROS: HPI CHIEF COMPLAINT: Shortness of breath, medical clearance for [facility]. HISTORY OF PRESENT ILLNESS: 57-year-old male, homeless, presents emergency room with shortness of breath. Patient reports he suffers from asthma. He believes he is having an asthma attack. He arrives to emergency room in police custody with EMS. It Is also noted he has extensive metal bugs on him. On exam no distress, clear lungs with good air movement bilaterally however patient gets excited and breathes heavily. Patient denies chest pain. Denies shortness of breath, denies pleuritic pain. Main complaint left shoulder pain. Past Medical History: Significant medical history for asthma, aspiration pneumonia, esophagitis, scabies, bipolar disorder, schizoaffective disorder Past Surgical History: No recent surgery Social History: Homeless, history of alcoholism. Family History: Denies family history. ROS REVIEW OF SYSTEMS: 10 Systems were reviewed and negative with the exception of the elements mentioned in the history of present illness. Exam Constitutional triage nursing summary reviewed, vital signs reviewed, awake/ alert. Vital signs stable. Eyes normal conjunctivae and sclera, EOMI, PERRLA. HENT normal inspection, atraumatic, moist mucus membranes, no epistaxis, neck supple/ no meningismus, no raccoon eyes. Respiratory good air movement bilaterally clear to auscultation bilaterally, normal breath sounds, no respiratory distress, no wheezing. Cardiovascular rate normal, regular rhythm, no murmur, no edema, distal pulses normal. Gastrointestinal soft, non-tender, no rebound, no guarding, normal bowel sounds, no distension, no pulsatile mass. Genitourinary no CVA tenderness. Musculoskeletal left arm: Good distal pulse, good cap refill, sensation intact , axillary nerve intact, obvious anterior shoulder dislocation on exam. no midline vertebral tenderness, full range of motion, no calf swelling, no tenderness of extremities, no meningismus, good pulses, neurovascularly intact. Skin pink, warm, & dry, no rash, skin atraumatic. Neurologic awake, alert and oriented x 3, AAOx3, moves all 4 extremities equally, motor intact, sensory intact, CN II-XII intact, normal cerebellar, normal vision, normal speech. Psychiatric normal mood/affect. Heme/Lymph/Immune no lymphadenopathy. Differential Diagnosis: Includes but is not limited to in a particular order viral syndrome, URI, asthma, pneumonia, anxiety attack, panic attack, bed bugs, body mites. Medical Decision Making: Plan for this patient IV establishment IV fluid bolus , DuoNeb breathing treatment, chest x-ray, basic labs and re-evaluate. Re-evaluation: 2320: Patient refusing IV establishment or blood draw. Chest x-ray normal. No evidence of pneumonia. 1231: Patient re-evaluated this time is resting comfortably. No distress in fact he was sleeping. Patient is stable vital signs. On re-examination he did receive a DuoNeb breathing treatment he has good air movement, no wheezing, denies chest pain or shortness of breath. Is noted he has bugs all over him it appears to be body lice. The patient was initially brought into the emergency room under arrest however the police have released him from going to [facility] and given him a summons. He is now been sleeping for over an hour in the emergency room in no acute distress resting comfortably. Patient's vitals are stable Patient's chest x-ray shows no pneumonia The patient refused blood draw or IV establishment He did receive a DuoNeb breathing treatment I will give him a take-home albuterol inhaler. I discussed return precautions with him he understands return emergency room if develops any worsening symptoms includes worsening shortness of breath, cough, fever. With alcohol 169. Patient offered to go to [facility]. He would like this. 0606: Patient re-evaluated this time resting comfortably in no acute distress. I did further discussion with the patient he was allowed to stay here in the emergency room overnight isolated in his room as he has bed bugs. We did not discharge him to 10 degree weather. And he did not go to the [facility] last night. He is now resting comfortably no acute distress he denies any complaints. Denies chest pain or shortness of breath. He feels much better. He slept here for over 7 hr. He is now sober. An albuterol inhaler be provided. He reports to me that he would like to be discharged as he wants to go to he is can't where he lives. I discussed return precautions he understands return emergency room if develops worsening shortness of breath, fever, vomiting His chest x-rays clearance shows no pneumonia Vital signs are stable no hypoxia On re-examination is not wheezing. Feels better after DuoNeb breathing treatment Albuterol inhaler provided. 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 - Data Points Medications Given: Discontinued Medications Albuterol/Ipratropium (Duoneb) 3 ml IH EDNOW ONE Stop: 05/18/18 22:56 Last Admin: 05/18/18 23:15 Dose: 3 ml Sodium Chloride (Ns) 1,000 mls @ 0 mls/hr IV ONCE ONE; Wide Open PRN Reason: Protocol Stop: 05/18/18 22:56 Last Admin: 05/18/18 23:35 Dose: Not Given Departure - Departure Disposition: Home, Routine, Self-Care Clinical Impression: Bronchitis, Alcohol intoxication Condition: Good Instructions: Acute Bronchitis (ED), Alcohol Intoxication (ED) Additional Instructions: 1. Please stop smoking. 2. Return to the emergency room if you have worsening symptoms this includes worsening shortness of breath, trouble breathing, fever, vomiting. Referrals: NONE *PRIMARY CARE P,. [Primary Care Provider] - As per Instructions [facility],. [Clinic] - As per Instructions
[2018-05-18] MEDS ORDERED: IPRATROPIUM/ALBUTEROL 3 ML DEYVIAL IH ONE (22:55)
[2018-05-18] MEDS ORDERED: NS 1,000 ML IV ONE (22:55)
[2018-05-19] MEDS ORDERED: ALBUTEROL INH PREPACK MDI TAKEHOME ONE ×2 (00:33→06:03)
[2018-05-19 06:32] VITALS: BP 138/82
== END 2018-05-19 06:32 | disposition home or self-care (01) ==
LOC: EDUNIT#
DX: J40 Bronchitis, not specified as acute or chronic (principal); F10.920 Alcohol use, unspecified with intoxication, uncomplicated; E86.9 Volume depletion, unspecified

== ENCOUNTER 2018-06-08 23:42 | Emergency (ER) | payer OTHER ==
--- NOTE | 2018-06-08 23:46 | EDPHY ---
H & P Time Seen by Provider: 06/08/18 23:45 HPI/ROS: CHIEF COMPLAINT: Medical screening for incarceration HISTORY OF PRESENT ILLNESS: 57-year-old homeless male in the ER for medical screening prior to incarceration for specific concerns over possible frostbite to feet and for possible scabies. PHYSICAL EXAM (Prior to examination, patient consented to physical exam, hands were washed and my usual and customary physical exam procedures followed) 1) GENERAL: Well-developed, well-nourished, alert and oriented. Appears to be in no acute distress. 2) HEAD: Normocephalic 3) HEENT: sclera anicteric 4) LUNGS: Breathing comfortably. 5) SKIN: The patient's abdomen he has multiple excoriated lesions consistent with scabies. No evidence of super infection, no evidence of cellulitis. The patient's bilateral feet he has multiple subacute areas consistent with subacute frostbite with granulating and berrios of tissue with no evidence of acute infection such as cellulitis. No crepitus bilaterally. No evidence of trench foot. Smoking Status: Heavy smoker Allergies/Adverse Reactions: codeine [Codeine] Allergy (Verified 05/07/18 07:47) Penicillins Allergy (Verified 05/07/18 07:47) Home Medications: Medication Instructions Recorded Permethrin 5% [Elimite 5%] 60 sammie TP ONCE #1 cream 06/08/18 MDM/Departure - [facility] ED Course/Re-evaluation: Patient has evidence of scabies to his abdomen. No evidence of [place] scabies. Given my recommendations for scabies including, but not limited to, washing all clothing in hot water and soap and treatment with Elimite. Given prescription for Elimite. Regarding his feet, he has subacute frostbite injury to his great toe with no evidence of acute infection. No evidence of necrosis. No indication for emergent intervention or surgical consultation. At this time I think the patient can be discharged with law enforcement to the group home. He is medically cleared for incarceration. - Depart Disposition: Law Enforcement/Court/[facility] Clinical Impression: Scabies Condition: Good Instructions: Scabies (ED) Additional Instructions: Wash all of your clothing and belongings belongings in hot water with soap. Prescriptions: Permethrin 5% [Elimite 5%] 60 sammie TP ONCE #1 cream Referrals: [facility],. [Clinic] - As per Instructions
[2018-06-08 23:54] VITALS: BP 133/80
== END 2018-06-08 23:59 ==
LOC: EDUNIT#
DX: Z02.89 Encounter for other administrative examinations (principal); B86 Scabies

== ENCOUNTER 2018-08-03 09:05 | Emergency (ER) | payer MEDICAID ==
--- NOTE | 2018-08-03 10:01 | EDPHY ---
H & P Time Seen by Provider: 08/03/18 09:08 HPI/ROS: Chief complaint. Alcohol intoxication HPI. Patient is a 57-year-old male presents emergency department by EMS with alcohol intoxication. He was [place] a [place]. Bystanders reported patient lying on the ground. EMS brings the patient in. Patient has no complaints. Denies injury. He admits to drinking alcohol today. He says he is not sick. No chest pain or shortness of breath or abdominal pain. ROS 10 systems were reviewed and negative with the exception of the elements mentioned in the history of present illness Past Medical/Surgical History: Alcoholism, hypertension, head injury, seizure disorder, frostbite, COPD Social History: Single, daily smoker, recent alcohol Smoking Status: Heavy smoker Physical Exam: General Appearance: Alert well-developed male mild distress vital signs are stable Eyes: Pupils equal and round no pallor or injection. ENT, Mouth: Mucous membranes are moist. Respiratory: There are no retractions, lungs are clear to auscultation. Cardiovascular: Regular rate and rhythm. Gastrointestinal: Abdomen is soft and nontender, no masses, bowel sounds normal. Neurological: Awake and alert, sensory and motor exams grossly normal. Skin: Warm and dry, no rashes. Musculoskeletal: Neck is supple nontender. Extremities symmetrical, full range of motion. Psychiatric: Patient is oriented X 3, there is no agitation. Constitutional: Initial Vital Signs Temperature (C) 36.9 C 08/03/18 09:09 Heart Rate 85 08/03/18 09:09 Respiratory Rate 16 08/03/18 09:09 Blood Pressure 185/95 H 08/03/18 09:09 O2 Sat (%) 96 08/03/18 09:09 O2 Delivery Mode Room Air Allergies/Adverse Reactions: codeine [Codeine] Allergy (Verified 05/07/18 07:47) Penicillins Allergy (Verified 05/07/18 07:47) Home Medications: Medication Instructions Recorded Permethrin 5% [Elimite 5%] 60 sammie TP ONCE #1 cream 06/08/18 Medical Decision Making ED Course/Re-evaluation: Patient is observed and remained stable. He is ambulatory. He continues to have no complaints. He is discharged in stable condition. Differential Diagnosis: Alcohol intoxication without injury or illness. No evidence for withdrawal Departure - Departure Disposition: Home, Routine, Self-Care Clinical Impression: Alcohol intoxication Qualifiers: Complication of substance-induced condition: uncomplicated Qualified Code(s): F10.920 - Alcohol use, unspecified with intoxication, uncomplicated Abrasion hand Qualifiers: Encounter type: initial encounter Laterality: left Qualified Code(s): S60.512A - Abrasion of left hand, initial encounter Condition: Good Instructions: Alcohol Intoxication (ED) Additional Instructions: Please do not do drugs or drink more alcohol today Keep your abrasion on your hand clean and dry. Antibiotic ointment and Band- Aid daily. Return for signs of infection Referrals: NONE *PRIMARY CARE P,. [Primary Care Provider] - As per Instructions
[2018-08-03 10:19] VITALS: BP 132/68
== END 2018-08-03 10:17 | disposition home or self-care (01) ==
LOC: EDUNIT#
DX: S60.512A Abrasion of left hand, initial encounter (principal); F10.129 Alcohol abuse with intoxication, unspecified; I10 Essential (primary) hypertension; F17.200 Nicotine dependence, unspecified, uncomplicated

== ENCOUNTER 2018-08-26 00:19 | Emergency (ER) | payer MEDICAID | END 2018-08-26 03:43 | disposition home or self-care (01) ==